=== PATIENT | female | born 1940 | race Caucasian/White ===

== ENCOUNTER 2017-10-18 10:03 | Inpatient (IN) ==
[~2017-10-18 10:03] MED LIST: *HR* Etomidate 20 MG/10 ML AMPUL IVP ONE; *HR* Rocuronium Bromide 100 MG/10 ML VIAL IVC ONE
[2017-10-18] MEDS ORDERED: *HR* LORazepam 2 MG/ML VIAL IM ONE (10:11)
[2017-10-18] MEDS ORDERED: 0.9 % Sodium Chloride 1,000 ML IVC ONE ×2 (10:11→20:22)
--- NOTE | 2017-10-18 10:18 | Emergency Department Note ---
Disposition Clinical Impression: Encephalopathy, Hypertension Disposition: Home, Self-Care Condition: Critical Neuro HPI - General Stated Complaint: lethargic Time Seen by Provider: 10/18/17 10:11 Nursing Notes Reviewed: Yes Vital Signs Reviewed: Yes - History of Present Illness HPI Narrative: Mrs. Garvey, a 77yo female, presents from home via EMS for neuro deficits. Onset this morning at 08:30. Described as non-verbal, purposeless movements. Began with her standing, fiddling with a candy dish and progressed to her current non-verbal state, not following commands, purposeless movements in all extremities. Per , she was normal this morning upon awakening. No preceeding fever, cough, dysuria. No hx ACS, CVA, TIA. No trauma. Antiplatelet: aspirin 81mg qdaily. Anticoagulant: none PMH: HTN, hypothyroid, HLD. Antihypertensive: Klonopin. Patient did not take her medications morning. ROS not obtainable. - Related Data Home Medications: Home Medications Medication Instructions Recorded Confirmed Baclofen [Lioresal] 10 mg PO TID 10/18/17 10/18/17 Estrogens, Conjugated [Premarin 1 appl VG MO 10/18/17 10/18/17 Cream] Ibuprofen 800 mg PO BID PRN 10/18/17 10/18/17 Levothyroxine Sodium [Levoxyl] 75 mcg PO DAILY 10/18/17 10/18/17 Mirtazapine [Remeron] 15 mg PO HS 10/18/17 10/18/17 Olopatadine HCl [Pataday] 1 drop BOTH EYES BID 10/18/17 10/18/17 Omeprazole [PriLOSEC] 40 mg PO DAILY 10/18/17 10/18/17 PARoxetine HCl [Paroxetine HCl] 10 mg PO DAILY 10/18/17 10/18/17 Pravastatin Sodium [Pravachol] 20 mg PO QPM 10/18/17 10/18/17 Trazodone HCl 100 mg PO HS 10/18/17 10/18/17 cloNIDine HCl [CloNIDine HCl] 0.1 mg PO DAILY 10/18/17 10/18/17 Allergies/Adverse Reactions: Allergies Allergy/AdvReac Type Severity Reaction Status Date / Time No Known Allergies Allergy Verified 09/13/16 06:19 All systems ED: reviewed and negative except as stated. Review of Systems: As Per HPI Limitations: ROS unobtainable due to patients medical condition Past Medical History - Past Medical History Medical history: Reports: hyperlipidemia, hypertension, thyroid disease Surgical history: Reports: cholecystectomy, hysterectomy Psychiatric history: Reports: no psych history [employer] HAND history: Reports: non-contributory - Social History Smoking Status: Never smoker Smokeless Tobacco Status: No Alcohol use: Reports: none Drug use: Reports: none Physical Exam Vital Signs Reviewed General: Patient has spontaneous eye opening and is watching staff is reattempt IV placement. She otherwise has purposeless movements, does not follow commands. Head: atraumatic, normocephalic Eye: normal appearance, PERRL, no scleral icterus, no conjunctival injection ENT: mucous membranes moist, normal external ear exam Neck: normal inspection, trachea midline Chest: normal inspection, symmetric chest rise Respiratory: Good respiratory effort. Bilateral breath sounds are clear without wheezing, crackles, or rhonchi. Cardiovascular: Regular rate and rhythm. No clicks, rubs, gallops, or murmors. Normal heart sounds. Lateral posterior tibial and radial pulses 2/44. Abdomen: Bowel sounds present normoactive. Abdomen is soft, nondistended. No organomegaly noted. Musculoskeletal: Spontaneously moving all extremities. No evidence of trauma; no extremity deformities, no cutaneous abrasions/erythema/ecchymosis. Skin: warm, dry, intact. No jaundice. Neuro: Patient has spontaneous eye opening. Unable to assess cranial nerve function. No focal neurologic deficits-purposelessly moving all extremities, no facial droop. Not following commands. Nonverbal. Course Course Narrative: Patient is awake, spontaneously opens her eyes, protecting her airway. No external evidence of trauma. Pupils are equally round and reactive to light. Concern for cerebral hemorrhage versus encephalopathy. Patient's movements are not allowing staff placement of IV. IM Ativan did not calm her. Will attempt IM Haldol. If this is as discussed will, discussed with the intubation to allow us to properly manage her presentation; will allow appropriate IV placement, lab draw, CT head, potential lumbar puncture. We will prepare to cover with meningitic antibiotics and antiviral. EKG data 10/18/17 at 11:26 interpreted as sinus rhythm with rate of 92. First- degree AV block with ME 243 ms. Otherwise normal intervals. Normal axis. Nonspecific ST-T changes. Compared to previous EKG dated 09/12/2016 show no acute ischemic changes comparison; first degree AV block present on comparison EKG. Patient did not respond to Ativan or Haldol IM. Given the concern over her abrupt change in mentation as well as our inability to obtain intravascular access port to calm her for imaging study, patient was emergently intubated by Dr. Gadiel Baker. CT head on my evaluation did not show a cerebral hemorrhage. No acute changes per radiology read. MRI pending. Chest x-ray shows possible left basilar pneumonia. Per , patient had no preceding symptoms of respiratory illness. Laboratory workup is unremarkable. No leukocytosis or leukocytopenia. Normal lateralizing renal function. Urinalysis is not concerning for UTI. CSF studies pending. Cerebral hemorrhage rule out RCT. Sural ischemia, though possible, is unlikely given the patient's initial presentation of purposeless movement that was equal bilaterally with no facial droop; no focal deficit. Concern for encephalopathy. Infectious encephalopathy is possible though less likely the patient's lack of elevated white blood count. CSF studies pending. We will continue empiric antibiotics pending micro-biology results. Patient's intake blood pressure was extremely hypertensive. Strong clinical suspicion for hypertensive encephalopathy. Blood pressure has improved after intubation in sedation/analgesia with propofol and fentanyl. I discussed the patient with the automobile spring repairer, Dr. Gandara, results of the patient to the ICU. Will attempt to minimize her propofol, monitoring her pressure. Will place restraints if needed and begin antihypertensive drip if needed. Patient's and family have not updated continuously by myself as well as Dr. Robertson. At this time, they have no additional questions. Vital Signs Temperature 97.6 F 10/18/17 10:11 Pulse Rate 122 10/18/17 10:11 Respiratory Rate 20 10/18/17 10:11 Blood Pressure 135/54 10/18/17 10:11 O2 Sat by Pulse Oximetry 97 10/18/17 10:11 Temperature 97.6 F 10/18/17 10:11 Pulse Rate 90 10/18/17 13:10 Respiratory Rate 12 10/18/17 13:10 Blood Pressure 208/78 10/18/17 13:10 O2 Sat by Pulse Oximetry 99 10/18/17 13:10 Oxygen Delivery Oxygen Delivery Ventilator Procedures - IO Left Tibia Time Out Performed: No (Emergent. Implied consent.) Local Anesthetic: lidocaine 1% Amount of anesthesic used (mL): 1 IO Instrument Used to Penetrate the Cortex: standard IO needle Patient Tolerated Procedure: well, no complications Complications: none - Lumbar Puncture Consent Obtained: verbal consent Time Out Performed: No (Emergent. Verbal consent from .) Patient Position: right lateral decubitus Skin Prep: Povidone-Iodine 1% Local Anesthetic: lidocaine 1% Amount of anesthesia used (mL): 4 Spinal Needle Gauge: 22G Interspace Used: L3-L4 Fluid Initially Obtained: clear Additional Comments: CSF slow to present to needle hub; CSF pressure not obtained. Complications: none Neuro Symptoms/Deficit - Lab Data Result diagrams: 10/18/17 11:34 10/18/17 11:34 Lab Results 10/18/17 10/18/17 10/18/17 Range/Units 10:06 11:34 11:34 WBC 6.6 (4.3-11.1) K/mcL RBC 4.37 (3.82-4.97) M/mcL Hgb 12.6 (11.5-15.4) g/dL Hct 39.3 (35.3-44.9) % MCV 89.9 (83.0-100.0) fL MCH 28.8 (28.0-33.3) pg MCHC 32.1 (31.6-35.5) g/dL RDW 13.6 (11.5-14.5) % Plt Count 305 (140-400) K/mcL MPV 9.9 (9.4-12.4) fL Immature Gran % 0.2 (0-4) % Seg Neutrophils % 83.2 % Lymphocytes % 12.1 % Monocytes % 3.0 % Eosinophils % 0.9 % Basophils % 0.6 % Neutrophils # 5.5 (1.6-8.9) K/mcL Lymphocytes # 0.8 (0.6-4.6) K/mcL Monocytes # 0.2 (0.0-1.3) K/mcL Eosinophils # 0.1 (0.0-0.6) K/mcL Basophils # 0.0 (0.0-0.2) K/mcL PT 11.4 (9.4-12.1) Seconds INR 1.1 APTT 26.0 (26.0-36.0) Seconds Carboxyhemoglobin (0-5) % Sodium (136-145) mEq/L Potassium (3.5-5.1) mEq/L Chloride (98-107) mEq/L Carbon Dioxide (23-29) mEq/L BUN (8-23) mg/dL Creatinine (0.60-1.20) mg/dL Est GFR ( Amer) (> 60) Est GFR (Non-Af Amer) (> 60) BUN/Creatinine Ratio (6-26) Glucose (70-105) mg/dL POC Glucose 109 H (70-99) mg/dL Calculated Osmolality (280-300) Lactic Acid (0.5-2.2) mmol/L Calcium (8.6-10.3) mg/dL Phosphorus (2.7-4.5) mg/dL Magnesium (1.6-2.6) mg/dL Total Bilirubin (0.3-1.0) mg/dL Direct Bilirubin (0.0-0.2) mg/dL Indirect Bilirubin (0.0-1.2) mg/dL AST (13-39) Units/L ALT (7-52) Units/L Alkaline Phosphatase (34-104) Units/L Ammonia (16-53) mcmol/L Creatine Kinase (30-223) Units/L Troponin I (< 0.04) ng/mL Serum Total Protein (6.4-8.9) g/dL Albumin (3.5-5.7) g/dL Globulin (2.4-3.5) g/dL Albumin/Globulin Ratio (1.1-2.2) TSH (0.340-5.600) mcIU/mL Urine Color (Yellow) Urine Clarity (Clear) Urine pH (5.0-8.0) pH Units Ur Specific [place] (1.010-1.025) Urine Protein (Neg-Trace) mg/dL Urine Glucose (UA) (Normal) mg/dL Urine Ketones (Negative) mg/dL Urine Blood (Negative) Urine Nitrite (Negative) Urine Bilirubin (Negative) Urine Urobilinogen (Normal) mg/dL Ur Leukocyte Esterase (Negative) Urine Microscopic RBC (0-3) per hpf Urine Microscopic WBC (0-3) per hpf Ur Squamous Epith Cells (None-Few) per lpf Urine Bacteria (None-Few) per hpf Hyaline Casts (None-Few) per lpf Ur Culture Indicated? (NO) CSF Volume mL CSF Appearance (Clear) CSF Color (Colorless) CSF RBC (0.000 - 0.002) M/mcL CSF Tot Nucleated Cells (0-5) TNC/mcL CSF Xanth Comm (Not Observe) Urine Opiates Screen (Ljcpkm=799) ng/mL Ur Barbiturates Screen (Hpsgwf=109) ng/mL Ur Phencyclidine Scrn (Cutoff=25) ng/mL Ur Amphetamines Screen (Tobtdq=0978) ng/mL U Benzodiazepines Scrn (Cmuxoz=453) ng/mL Urine Cocaine Screen (Cutoff= 300) ng/mL U Marijuana (THC) Screen (Cutoff = 50) ng/mL Ethyl Alcohol (Less than 10) mg/dL 10/18/17 10/18/17 10/18/17 Range/Units 11:34 11:34 11:34 WBC (4.3-11.1) K/mcL RBC (3.82-4.97) M/mcL Hgb (11.5-15.4) g/dL Hct (35.3-44.9) % MCV (83.0-100.0) fL MCH (28.0-33.3) pg MCHC (31.6-35.5) g/dL RDW (11.5-14.5) % Plt Count (140-400) K/mcL MPV (9.4-12.4) fL Immature Gran % (0-4) % Seg Neutrophils % % Lymphocytes % % Monocytes % % Eosinophils % % Basophils % % Neutrophils # (1.6-8.9) K/mcL Lymphocytes # (0.6-4.6) K/mcL Monocytes # (0.0-1.3) K/mcL Eosinophils # (0.0-0.6) K/mcL Basophils # (0.0-0.2) K/mcL PT (9.4-12.1) Seconds INR APTT (26.0-36.0) Seconds Carboxyhemoglobin 5.2 H (0-5) % Sodium 139 (136-145) mEq/L Potassium 3.0 L (3.5-5.1) mEq/L Chloride 104 (98-107) mEq/L Carbon Dioxide 23 (23-29) mEq/L BUN 14 (8-23) mg/dL Creatinine 0.82 (0.60-1.20) mg/dL Est GFR ( Amer) > 60 (> 60) Est GFR (Non-Af Amer) > 60 (> 60) BUN/Creatinine Ratio 17 (6-26) Glucose 123 H (70-105) mg/dL POC Glucose (70-99) mg/dL Calculated Osmolality 290 (280-300) Lactic Acid (0.5-2.2) mmol/L Calcium 8.6 (8.6-10.3) mg/dL Phosphorus (2.7-4.5) mg/dL Magnesium (1.6-2.6) mg/dL Total Bilirubin 0.3 (0.3-1.0) mg/dL Direct Bilirubin 0.1 (0.0-0.2) mg/dL Indirect Bilirubin 0.2 (0.0-1.2) mg/dL AST 24 (13-39) Units/L ALT 16 (7-52) Units/L Alkaline Phosphatase 55 (34-104) Units/L Ammonia 42 (16-53) mcmol/L Creatine Kinase 182 (30-223) Units/L Troponin I < 0.03 (< 0.04) ng/mL Serum Total Protein 6.5 (6.4-8.9) g/dL Albumin 4.3 (3.5-5.7) g/dL Globulin 2.2 L (2.4-3.5) g/dL Albumin/Globulin Ratio 2.0 (1.1-2.2) TSH (0.340-5.600) mcIU/mL Urine Color (Yellow) Urine Clarity (Clear) Urine pH (5.0-8.0) pH Units Ur Specific [place] (1.010-1.025) Urine Protein (Neg-Trace) mg/dL Urine Glucose (UA) (Normal) mg/dL Urine Ketones (Negative) mg/dL Urine Blood (Negative) Urine Nitrite (Negative) Urine Bilirubin (Negative) Urine Urobilinogen (Normal) mg/dL Ur Leukocyte Esterase (Negative) Urine Microscopic RBC (0-3) per hpf Urine Microscopic WBC (0-3) per hpf Ur Squamous Epith Cells (None-Few) per lpf Urine Bacteria (None-Few) per hpf Hyaline Casts (None-Few) per lpf Ur Culture Indicated? (NO) CSF Volume mL CSF Appearance (Clear) CSF Color (Colorless) CSF RBC (0.000 - 0.002) M/mcL CSF Tot Nucleated Cells (0-5) TNC/mcL CSF Xanth Comm (Not Observe) Urine Opiates Screen (Avjzdp=051) ng/mL Ur Barbiturates Screen (Rbhxed=412) ng/mL Ur Phencyclidine Scrn (Cutoff=25) ng/mL Ur Amphetamines Screen (Bsmxkk=2204) ng/mL U Benzodiazepines Scrn (Cztsjf=215) ng/mL Urine Cocaine Screen (Cutoff= 300) ng/mL U Marijuana (THC) Screen (Cutoff = 50) ng/mL Ethyl Alcohol < 10 (Less than 10) mg/dL 10/18/17 10/18/17 10/18/17 Range/Units 11:34 11:34 11:34 WBC (4.3-11.1) K/mcL RBC (3.82-4.97) M/mcL Hgb (11.5-15.4) g/dL Hct (35.3-44.9) % MCV (83.0-100.0) fL MCH (28.0-33.3) pg MCHC (31.6-35.5) g/dL RDW (11.5-14.5) % Plt Count (140-400) K/mcL MPV (9.4-12.4) fL Immature Gran % (0-4) % Seg Neutrophils % % Lymphocytes % % Monocytes % % Eosinophils % % Basophils % % Neutrophils # (1.6-8.9) K/mcL Lymphocytes # (0.6-4.6) K/mcL Monocytes # (0.0-1.3) K/mcL Eosinophils # (0.0-0.6) K/mcL Basophils # (0.0-0.2) K/mcL PT (9.4-12.1) Seconds INR APTT (26.0-36.0) Seconds Carboxyhemoglobin (0-5) % Sodium (136-145) mEq/L Potassium (3.5-5.1) mEq/L Chloride (98-107) mEq/L Carbon Dioxide (23-29) mEq/L BUN (8-23) mg/dL Creatinine (0.60-1.20) mg/dL Est GFR ( Amer) (> 60) Est GFR (Non-Af Amer) (> 60) BUN/Creatinine Ratio (6-26) Glucose (70-105) mg/dL POC Glucose (70-99) mg/dL Calculated Osmolality (280-300) Lactic Acid 1.6 (0.5-2.2) mmol/L Calcium (8.6-10.3) mg/dL Phosphorus 3.1 (2.7-4.5) mg/dL Magnesium 1.8 (1.6-2.6) mg/dL Total Bilirubin (0.3-1.0) mg/dL Direct Bilirubin (0.0-0.2) mg/dL Indirect Bilirubin (0.0-1.2) mg/dL AST (13-39) Units/L ALT (7-52) Units/L Alkaline Phosphatase (34-104) Units/L Ammonia (16-53) mcmol/L Creatine Kinase (30-223) Units/L Troponin I (< 0.04) ng/mL Serum Total Protein (6.4-8.9) g/dL Albumin (3.5-5.7) g/dL Globulin (2.4-3.5) g/dL Albumin/Globulin Ratio (1.1-2.2) TSH 2.393 (0.340-5.600) mcIU/mL Urine Color (Yellow) Urine Clarity (Clear) Urine pH (5.0-8.0) pH Units Ur Specific [place] (1.010-1.025) Urine Protein (Neg-Trace) mg/dL Urine Glucose (UA) (Normal) mg/dL Urine Ketones (Negative) mg/dL Urine Blood (Negative) Urine Nitrite (Negative) Urine Bilirubin (Negative) Urine Urobilinogen (Normal) mg/dL Ur Leukocyte Esterase (Negative) Urine Microscopic RBC (0-3) per hpf Urine Microscopic WBC (0-3) per hpf Ur Squamous Epith Cells (None-Few) per lpf Urine Bacteria (None-Few) per hpf Hyaline Casts (None-Few) per lpf Ur Culture Indicated? (NO) CSF Volume mL CSF Appearance (Clear) CSF Color (Colorless) CSF RBC (0.000 - 0.002) M/mcL CSF Tot Nucleated Cells (0-5) TNC/mcL CSF Xanth Comm (Not Observe) Urine Opiates Screen (Rlcrfu=366) ng/mL Ur Barbiturates Screen (Pncksy=609) ng/mL Ur Phencyclidine Scrn (Cutoff=25) ng/mL Ur Amphetamines Screen (Sjcvzf=4003) ng/mL U Benzodiazepines Scrn (Nimunh=995) ng/mL Urine Cocaine Screen (Cutoff= 300) ng/mL U Marijuana (THC) Screen (Cutoff = 50) ng/mL Ethyl Alcohol (Less than 10) mg/dL 10/18/17 10/18/17 10/18/17 Range/Units 11:43 11:43 13:00 WBC (4.3-11.1) K/mcL RBC (3.82-4.97) M/mcL Hgb (11.5-15.4) g/dL Hct (35.3-44.9) % MCV (83.0-100.0) fL MCH (28.0-33.3) pg MCHC (31.6-35.5) g/dL RDW (11.5-14.5) % Plt Count (140-400) K/mcL MPV (9.4-12.4) fL Immature Gran % (0-4) % Seg Neutrophils % % Lymphocytes % % Monocytes % % Eosinophils % % Basophils % % Neutrophils # (1.6-8.9) K/mcL Lymphocytes # (0.6-4.6) K/mcL Monocytes # (0.0-1.3) K/mcL Eosinophils # (0.0-0.6) K/mcL Basophils # (0.0-0.2) K/mcL PT (9.4-12.1) Seconds INR APTT (26.0-36.0) Seconds Carboxyhemoglobin (0-5) % Sodium (136-145) mEq/L Potassium (3.5-5.1) mEq/L Chloride (98-107) mEq/L Carbon Dioxide (23-29) mEq/L BUN (8-23) mg/dL Creatinine (0.60-1.20) mg/dL Est GFR ( Amer) (> 60) Est GFR (Non-Af Amer) (> 60) BUN/Creatinine Ratio (6-26) Glucose (70-105) mg/dL POC Glucose (70-99) mg/dL Calculated Osmolality (280-300) Lactic Acid (0.5-2.2) mmol/L Calcium (8.6-10.3) mg/dL Phosphorus (2.7-4.5) mg/dL Magnesium (1.6-2.6) mg/dL Total Bilirubin (0.3-1.0) mg/dL Direct Bilirubin (0.0-0.2) mg/dL Indirect Bilirubin (0.0-1.2) mg/dL AST (13-39) Units/L ALT (7-52) Units/L Alkaline Phosphatase (34-104) Units/L Ammonia (16-53) mcmol/L Creatine Kinase (30-223) Units/L Troponin I (< 0.04) ng/mL Serum Total Protein (6.4-8.9) g/dL Albumin (3.5-5.7) g/dL Globulin (2.4-3.5) g/dL Albumin/Globulin Ratio (1.1-2.2) TSH (0.340-5.600) mcIU/mL Urine Color Yellow (Yellow) Urine Clarity Clear (Clear) Urine pH 7.5 (5.0-8.0) pH Units Ur Specific [place] 1.012 (1.010-1.025) Urine Protein Negative (Neg-Trace) mg/dL Urine Glucose (UA) Normal (Normal) mg/dL Urine Ketones Negative (Negative) mg/dL Urine Blood Small H (Negative) Urine Nitrite Negative (Negative) Urine Bilirubin Negative (Negative) Urine Urobilinogen Normal (Normal) mg/dL Ur Leukocyte Esterase Negative (Negative) Urine Microscopic RBC 3-5 H (0-3) per hpf Urine Microscopic WBC 0-3 (0-3) per hpf Ur Squamous Epith Cells Moderate H (None-Few) per lpf Urine Bacteria None Seen (None-Few) per hpf Hyaline Casts None Seen (None-Few) per lpf Ur Culture Indicated? NO (NO) CSF Volume 4.0 mL CSF Appearance Clear (Clear) CSF Color Colorless (Colorless) CSF RBC < 0.002 (0.000 - 0.002) M/mcL CSF Tot Nucleated Cells < 3 (0-5) TNC/mcL CSF Xanth Comm Not Observed (Not Observe) Urine Opiates Screen Negative (Ufccgr=704) ng/mL Ur Barbiturates Screen Negative (Ikztxa=365) ng/mL Ur Phencyclidine Scrn Negative (Cutoff=25) ng/mL Ur Amphetamines Screen Negative (Uvngay=8891) ng/mL U Benzodiazepines Scrn Negative (Qfbjqd=714) ng/mL Urine Cocaine Screen Negative (Cutoff= 300) ng/mL U Marijuana (THC) Screen Negative (Cutoff = 50) ng/mL Ethyl Alcohol (Less than 10) mg/dL TPA Checklist - LKW: 3-4.5 hrs Add. Warnings/Precautions Patient/family understanding: The patient/family members have been counseled and understood the risk, benefit , and alternatives of treatment. Attestation Statement - Attestation Attestation: I, Kaiden Robertson DO, examined this patient [id number] and my medical decision-making was reviewed with Bruce Sim, Resident Physician. I agree with the documented findings, disposition and treatment plan as described except to the extent set forth below. Please see my progress notes for details.
[2017-10-18] MEDS ORDERED: Haloperidol Lactate 5 MG/ML VIAL IM ONE (10:19)
[2017-10-18] MEDS ORDERED: Lidocaine -MPF 2% 5 ML VIAL ONE (11:00)
[2017-10-18] MEDS ORDERED: cefTRIAXone 2,000 MG in Water for inj. (sterile) 20 ML 20 ML IVP ONE (11:19)
[2017-10-18] MEDS ORDERED: Acyclovir 600 MG in D5% in Water 100 ML IVPB ONE (11:21)
[2017-10-18] MEDS ORDERED: Propofol 500 MG/50 ML INFUS..BTL IVC SCH (11:30)
[2017-10-18] MEDS ORDERED: *HR* Etomidate 20 MG/10 ML AMPUL IVP ONE (11:32)
[2017-10-18] MEDS ORDERED: *HR* Rocuronium Bromide 50 MG/5 ML VIAL IVP ONE (11:33)
[2017-10-18] MEDS ORDERED: Acyclovir 550 MG in D5% in Water 100 ML IVPB ONE (11:45)
[2017-10-18] MEDS: FentaNYL (PF) 1,000 MCG in 0.9 % Sodium Chloride 80 ML IVC SCH (11:48)
[2017-10-18 11:49] LABS: Basophils % 0.6 %; Eosinophils # 0.1 K/mcL (0.0-0.6); Eosinophils % 0.9 %; Hematocrit 39.3 % (35.3-44.9); Hemoglobin 12.6 g/dL (11.5-15.4); Immature Granulocytes % 0.2 % (0-4); Lymphocytes # 0.8 K/mcL (0.6-4.6); Lymphocytes % 12.1 %; Mean Corpuscular HGB Conc 32.1 g/dL (31.6-35.5); Mean Corpuscular Hemoglobin 28.8 pg (28.0-33.3); Mean Corpuscular Volume 89.9 fL (83.0-100.0); Mean Platelet Volume 9.9 fL (9.4-12.4); Monocytes # 0.2 K/mcL (0.0-1.3); Neutrophils # 5.5 K/mcL (1.6-8.9); Platelet Count 305 K/mcL (140-400); Red Blood Count 4.37 M/mcL (3.82-4.97); Red Cell Distribution Width 13.6 % (11.5-14.5); Segmented Neutrophils % 83.2 %
[2017-10-18 11:55] LABS: Bilirubin,Urine Negative (Negative); Blood,Urine Small (Negative); Clarity,Urine Clear (Clear); Color,Urine Yellow (Yellow); Glucose,Urine (UA) Normal (Normal); Ketones,Urine Negative (Negative); Leukocyte Esterase,Urine Negative (Negative); Nitrite,Urine Negative (Negative); PH,Urine 7.5 pH Units (5.0-8.0); Protein,Urine Negative (Neg-Trace); Specific Gravity,Urine 1.012 (1.010-1.025); Urobilinogen,Urine Normal (Normal)
[2017-10-18 11:55] LABS: INR 1.1; Prothrombin Time 11.4 Seconds (9.4-12.1)
[2017-10-18 11:56] LABS: Bacteria,Urine None Seen per hpf (None-Few); Hyaline Casts,Urine None Seen per lpf (None-Few); Squamous Epithelial Cell,Urine Moderate per lpf (None-Few); WBC,Urine 0-3 per hpf (0-3)
[2017-10-18 12:10] LABS: Magnesium 1.8 mg/dL (1.6-2.6); Phosphorous 3.1 mg/dL (2.7-4.5)
[2017-10-18] MEDS ORDERED: Lidocaine -MPF 2% 5 ML VIAL INFILT ONE (12:11)
[2017-10-18 12:13] LABS: Troponin I < 0.03 ng/mL (< 0.04)
--- NOTE | 2017-10-18 12:24 | Emergency Department Note ---
Disposition Clinical Impression: Encephalopathy, Hypertension Disposition: Admitted As Inpatient Condition: Fair Referrals: Bladimir Dunne MD [Partnered Physician] - Time of Disposition: 13:57 General Adult HPI - General Chief complaint: ED Weakness Stated complaint: lethargic Time Seen by Provider: 10/18/17 10:11 Source: family, EMS Limitations: no limitations - History of Present Illness Pain Scale: 0 - Related Data Home Medications Medication Instructions Recorded Confirmed Baclofen [Lioresal] 10 mg PO TID 10/18/17 10/18/17 Estrogens, Conjugated [Premarin 1 appl VG MO 10/18/17 10/18/17 Cream] Ibuprofen 800 mg PO BID PRN 10/18/17 10/18/17 Levothyroxine Sodium [Levoxyl] 75 mcg PO DAILY 10/18/17 10/18/17 Mirtazapine [Remeron] 15 mg PO HS 10/18/17 10/18/17 Olopatadine HCl [Pataday] 1 drop BOTH EYES BID 10/18/17 10/18/17 Omeprazole [PriLOSEC] 40 mg PO DAILY 10/18/17 10/18/17 PARoxetine HCl [Paroxetine HCl] 10 mg PO DAILY 10/18/17 10/18/17 Pravastatin Sodium [Pravachol] 20 mg PO QPM 10/18/17 10/18/17 Trazodone HCl 100 mg PO HS 10/18/17 10/18/17 cloNIDine HCl [CloNIDine HCl] 0.1 mg PO DAILY 10/18/17 10/18/17 Allergies Allergy/AdvReac Type Severity Reaction Status Date / Time No Known Allergies Allergy Verified 09/13/16 06:19 Past Medical History - Past Medical History Medical history: Reports: hyperlipidemia, hypertension, thyroid disease Surgical history: Reports: cholecystectomy, hysterectomy Psychiatric history: Reports: no psych history 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 - Social History Smoking Status: Never smoker Smokeless Tobacco Status: No Alcohol use: Reports: none Drug use: Reports: none Physical Exam - General Limitations: no limitations General appearance: lethargic, in distress Course Vital Signs Temperature 97.6 F 10/18/17 10:11 Pulse Rate 122 10/18/17 10:11 Respiratory Rate 20 10/18/17 10:11 Blood Pressure 135/54 10/18/17 10:11 O2 Sat by Pulse Oximetry 97 10/18/17 10:11 Temperature 97.6 F 10/18/17 10:11 Pulse Rate 90 10/18/17 13:10 Respiratory Rate 12 10/18/17 13:10 Blood Pressure 208/78 10/18/17 13:10 O2 Sat by Pulse Oximetry 99 10/18/17 13:10 Oxygen Delivery Oxygen Delivery Ventilator Medical Decision Making - Lab Data Result diagrams: 10/18/17 11:34 10/18/17 11:34 Lab Results 10/18/17 10/18/17 10/18/17 Range/Units 10:06 11:34 11:34 WBC 6.6 (4.3-11.1) K/mcL RBC 4.37 (3.82-4.97) M/mcL Hgb 12.6 (11.5-15.4) g/dL Hct 39.3 (35.3-44.9) % MCV 89.9 (83.0-100.0) fL MCH 28.8 (28.0-33.3) pg MCHC 32.1 (31.6-35.5) g/dL RDW 13.6 (11.5-14.5) % Plt Count 305 (140-400) K/mcL MPV 9.9 (9.4-12.4) fL Immature Gran % 0.2 (0-4) % Seg Neutrophils % 83.2 % Lymphocytes % 12.1 % Monocytes % 3.0 % Eosinophils % 0.9 % Basophils % 0.6 % Neutrophils # 5.5 (1.6-8.9) K/mcL Lymphocytes # 0.8 (0.6-4.6) K/mcL Monocytes # 0.2 (0.0-1.3) K/mcL Eosinophils # 0.1 (0.0-0.6) K/mcL Basophils # 0.0 (0.0-0.2) K/mcL PT 11.4 (9.4-12.1) Seconds INR 1.1 APTT 26.0 (26.0-36.0) Seconds Carboxyhemoglobin (0-5) % Sodium (136-145) mEq/L Potassium (3.5-5.1) mEq/L Chloride (98-107) mEq/L Carbon Dioxide (23-29) mEq/L BUN (8-23) mg/dL Creatinine (0.60-1.20) mg/dL Est GFR ( Amer) (> 60) Est GFR (Non-Af Amer) (> 60) BUN/Creatinine Ratio (6-26) Glucose (70-105) mg/dL POC Glucose 109 H (70-99) mg/dL Calculated Osmolality (280-300) Lactic Acid (0.5-2.2) mmol/L Calcium (8.6-10.3) mg/dL Phosphorus (2.7-4.5) mg/dL Magnesium (1.6-2.6) mg/dL Total Bilirubin (0.3-1.0) mg/dL Direct Bilirubin (0.0-0.2) mg/dL Indirect Bilirubin (0.0-1.2) mg/dL AST (13-39) Units/L ALT (7-52) Units/L Alkaline Phosphatase (34-104) Units/L Ammonia (16-53) mcmol/L Creatine Kinase (30-223) Units/L Troponin I (< 0.04) ng/mL Serum Total Protein (6.4-8.9) g/dL Albumin (3.5-5.7) g/dL Globulin (2.4-3.5) g/dL Albumin/Globulin Ratio (1.1-2.2) TSH (0.340-5.600) mcIU/mL Urine Color (Yellow) Urine Clarity (Clear) Urine pH (5.0-8.0) pH Units Ur Specific [place] (1.010-1.025) Urine Protein (Neg-Trace) mg/dL Urine Glucose (UA) (Normal) mg/dL Urine Ketones (Negative) mg/dL Urine Blood (Negative) Urine Nitrite (Negative) Urine Bilirubin (Negative) Urine Urobilinogen (Normal) mg/dL Ur Leukocyte Esterase (Negative) Urine Microscopic RBC (0-3) per hpf Urine Microscopic WBC (0-3) per hpf Ur Squamous Epith Cells (None-Few) per lpf Urine Bacteria (None-Few) per hpf Hyaline Casts (None-Few) per lpf Ur Culture Indicated? (NO) CSF Volume mL CSF Appearance (Clear) CSF Color (Colorless) CSF RBC (0.000 - 0.002) M/mcL CSF Tot Nucleated Cells (0-5) TNC/mcL CSF Seg Neutrophils CSF Band Neutrophils % CSF Lymphocytes % CSF Monocytes % CSF Eosinophils % CSF Basophils % CSF Other Cells % CSF Glucose (40-70) mg/dL CSF Xanth Comm (Not Observe) CSF Total Protein (15-45) mg/dL Urine Opiates Screen (Imzrtl=261) ng/mL Ur Barbiturates Screen (Cfeqxl=641) ng/mL Ur Phencyclidine Scrn (Cutoff=25) ng/mL Ur Amphetamines Screen (Sgklms=9016) ng/mL U Benzodiazepines Scrn (Lxhfcp=373) ng/mL Urine Cocaine Screen (Cutoff= 300) ng/mL U Marijuana (THC) Screen (Cutoff = 50) ng/mL Ethyl Alcohol (Less than 10) mg/dL 10/18/17 10/18/17 10/18/17 Range/Units 11:34 11:34 11:34 WBC (4.3-11.1) K/mcL RBC (3.82-4.97) M/mcL Hgb (11.5-15.4) g/dL Hct (35.3-44.9) % MCV (83.0-100.0) fL MCH (28.0-33.3) pg MCHC (31.6-35.5) g/dL RDW (11.5-14.5) % Plt Count (140-400) K/mcL MPV (9.4-12.4) fL Immature Gran % (0-4) % Seg Neutrophils % % Lymphocytes % % Monocytes % % Eosinophils % % Basophils % % Neutrophils # (1.6-8.9) K/mcL Lymphocytes # (0.6-4.6) K/mcL Monocytes # (0.0-1.3) K/mcL Eosinophils # (0.0-0.6) K/mcL Basophils # (0.0-0.2) K/mcL PT (9.4-12.1) Seconds INR APTT (26.0-36.0) Seconds Carboxyhemoglobin 5.2 H (0-5) % Sodium 139 (136-145) mEq/L Potassium 3.0 L (3.5-5.1) mEq/L Chloride 104 (98-107) mEq/L Carbon Dioxide 23 (23-29) mEq/L BUN 14 (8-23) mg/dL Creatinine 0.82 (0.60-1.20) mg/dL Est GFR ( Amer) > 60 (> 60) Est GFR (Non-Af Amer) > 60 (> 60) BUN/Creatinine Ratio 17 (6-26) Glucose 123 H (70-105) mg/dL POC Glucose (70-99) mg/dL Calculated Osmolality 290 (280-300) Lactic Acid (0.5-2.2) mmol/L Calcium 8.6 (8.6-10.3) mg/dL Phosphorus (2.7-4.5) mg/dL Magnesium (1.6-2.6) mg/dL Total Bilirubin 0.3 (0.3-1.0) mg/dL Direct Bilirubin 0.1 (0.0-0.2) mg/dL Indirect Bilirubin 0.2 (0.0-1.2) mg/dL AST 24 (13-39) Units/L ALT 16 (7-52) Units/L Alkaline Phosphatase 55 (34-104) Units/L Ammonia 42 (16-53) mcmol/L Creatine Kinase 182 (30-223) Units/L Troponin I < 0.03 (< 0.04) ng/mL Serum Total Protein 6.5 (6.4-8.9) g/dL Albumin 4.3 (3.5-5.7) g/dL Globulin 2.2 L (2.4-3.5) g/dL Albumin/Globulin Ratio 2.0 (1.1-2.2) TSH (0.340-5.600) mcIU/mL Urine Color (Yellow) Urine Clarity (Clear) Urine pH (5.0-8.0) pH Units Ur Specific [place] (1.010-1.025) Urine Protein (Neg-Trace) mg/dL Urine Glucose (UA) (Normal) mg/dL Urine Ketones (Negative) mg/dL Urine Blood (Negative) Urine Nitrite (Negative) Urine Bilirubin (Negative) Urine Urobilinogen (Normal) mg/dL Ur Leukocyte Esterase (Negative) Urine Microscopic RBC (0-3) per hpf Urine Microscopic WBC (0-3) per hpf Ur Squamous Epith Cells (None-Few) per lpf Urine Bacteria (None-Few) per hpf Hyaline Casts (None-Few) per lpf Ur Culture Indicated? (NO) CSF Volume mL CSF Appearance (Clear) CSF Color (Colorless) CSF RBC (0.000 - 0.002) M/mcL CSF Tot Nucleated Cells (0-5) TNC/mcL CSF Seg Neutrophils CSF Band Neutrophils % CSF Lymphocytes % CSF Monocytes % CSF Eosinophils % CSF Basophils % CSF Other Cells % CSF Glucose (40-70) mg/dL CSF Xanth Comm (Not Observe) CSF Total Protein (15-45) mg/dL Urine Opiates Screen (Frhvhv=443) ng/mL Ur Barbiturates Screen (Sxfcdc=627) ng/mL Ur Phencyclidine Scrn (Cutoff=25) ng/mL Ur Amphetamines Screen (Twumls=6481) ng/mL U Benzodiazepines Scrn (Jfpkba=769) ng/mL Urine Cocaine Screen (Cutoff= 300) ng/mL U Marijuana (THC) Screen (Cutoff = 50) ng/mL Ethyl Alcohol < 10 (Less than 10) mg/dL 10/18/17 10/18/17 10/18/17 Range/Units 11:34 11:34 11:34 WBC (4.3-11.1) K/mcL RBC (3.82-4.97) M/mcL Hgb (11.5-15.4) g/dL Hct (35.3-44.9) % MCV (83.0-100.0) fL MCH (28.0-33.3) pg MCHC (31.6-35.5) g/dL RDW (11.5-14.5) % Plt Count (140-400) K/mcL MPV (9.4-12.4) fL Immature Gran % (0-4) % Seg Neutrophils % % Lymphocytes % % Monocytes % % Eosinophils % % Basophils % % Neutrophils # (1.6-8.9) K/mcL Lymphocytes # (0.6-4.6) K/mcL Monocytes # (0.0-1.3) K/mcL Eosinophils # (0.0-0.6) K/mcL Basophils # (0.0-0.2) K/mcL PT (9.4-12.1) Seconds INR APTT (26.0-36.0) Seconds Carboxyhemoglobin (0-5) % Sodium (136-145) mEq/L Potassium (3.5-5.1) mEq/L Chloride (98-107) mEq/L Carbon Dioxide (23-29) mEq/L BUN (8-23) mg/dL Creatinine (0.60-1.20) mg/dL Est GFR ( Amer) (> 60) Est GFR (Non-Af Amer) (> 60) BUN/Creatinine Ratio (6-26) Glucose (70-105) mg/dL POC Glucose (70-99) mg/dL Calculated Osmolality (280-300) Lactic Acid 1.6 (0.5-2.2) mmol/L Calcium (8.6-10.3) mg/dL Phosphorus 3.1 (2.7-4.5) mg/dL Magnesium 1.8 (1.6-2.6) mg/dL Total Bilirubin (0.3-1.0) mg/dL Direct Bilirubin (0.0-0.2) mg/dL Indirect Bilirubin (0.0-1.2) mg/dL AST (13-39) Units/L ALT (7-52) Units/L Alkaline Phosphatase (34-104) Units/L Ammonia (16-53) mcmol/L Creatine Kinase (30-223) Units/L Troponin I (< 0.04) ng/mL Serum Total Protein (6.4-8.9) g/dL Albumin (3.5-5.7) g/dL Globulin (2.4-3.5) g/dL Albumin/Globulin Ratio (1.1-2.2) TSH 2.393 (0.340-5.600) mcIU/mL Urine Color (Yellow) Urine Clarity (Clear) Urine pH (5.0-8.0) pH Units Ur Specific [place] (1.010-1.025) Urine Protein (Neg-Trace) mg/dL Urine Glucose (UA) (Normal) mg/dL Urine Ketones (Negative) mg/dL Urine Blood (Negative) Urine Nitrite (Negative) Urine Bilirubin (Negative) Urine Urobilinogen (Normal) mg/dL Ur Leukocyte Esterase (Negative) Urine Microscopic RBC (0-3) per hpf Urine Microscopic WBC (0-3) per hpf Ur Squamous Epith Cells (None-Few) per lpf Urine Bacteria (None-Few) per hpf Hyaline Casts (None-Few) per lpf Ur Culture Indicated? (NO) CSF Volume mL CSF Appearance (Clear) CSF Color (Colorless) CSF RBC (0.000 - 0.002) M/mcL CSF Tot Nucleated Cells (0-5) TNC/mcL CSF Seg Neutrophils CSF Band Neutrophils % CSF Lymphocytes % CSF Monocytes % CSF Eosinophils % CSF Basophils % CSF Other Cells % CSF Glucose (40-70) mg/dL CSF Xanth Comm (Not Observe) CSF Total Protein (15-45) mg/dL Urine Opiates Screen (Wcinlo=813) ng/mL Ur Barbiturates Screen ([place]=143) ng/mL Ur Phencyclidine Scrn (Cutoff=25) ng/mL Ur Amphetamines Screen (Oxiccs=1588) ng/mL U Benzodiazepines Scrn (Ckmnuf=332) ng/mL Urine Cocaine Screen (Cutoff= 300) ng/mL U Marijuana (THC) Screen (Cutoff = 50) ng/mL Ethyl Alcohol (Less than 10) mg/dL 10/18/17 10/18/17 10/18/17 Range/Units 11:43 11:43 13:00 WBC (4.3-11.1) K/mcL RBC (3.82-4.97) M/mcL Hgb (11.5-15.4) g/dL Hct (35.3-44.9) % MCV (83.0-100.0) fL MCH (28.0-33.3) pg MCHC (31.6-35.5) g/dL RDW (11.5-14.5) % Plt Count (140-400) K/mcL MPV (9.4-12.4) fL Immature Gran % (0-4) % Seg Neutrophils % % Lymphocytes % % Monocytes % % Eosinophils % % Basophils % % Neutrophils # (1.6-8.9) K/mcL Lymphocytes # (0.6-4.6) K/mcL Monocytes # (0.0-1.3) K/mcL Eosinophils # (0.0-0.6) K/mcL Basophils # (0.0-0.2) K/mcL PT (9.4-12.1) Seconds INR APTT (26.0-36.0) Seconds Carboxyhemoglobin (0-5) % Sodium (136-145) mEq/L Potassium (3.5-5.1) mEq/L Chloride (98-107) mEq/L Carbon Dioxide (23-29) mEq/L BUN (8-23) mg/dL Creatinine (0.60-1.20) mg/dL Est GFR ( Amer) (> 60) Est GFR (Non-Af Amer) (> 60) BUN/Creatinine Ratio (6-26) Glucose (70-105) mg/dL POC Glucose (70-99) mg/dL Calculated Osmolality (280-300) Lactic Acid (0.5-2.2) mmol/L Calcium (8.6-10.3) mg/dL Phosphorus (2.7-4.5) mg/dL Magnesium (1.6-2.6) mg/dL Total Bilirubin (0.3-1.0) mg/dL Direct Bilirubin (0.0-0.2) mg/dL Indirect Bilirubin (0.0-1.2) mg/dL AST (13-39) Units/L ALT (7-52) Units/L Alkaline Phosphatase (34-104) Units/L Ammonia (16-53) mcmol/L Creatine Kinase (30-223) Units/L Troponin I (< 0.04) ng/mL Serum Total Protein (6.4-8.9) g/dL Albumin (3.5-5.7) g/dL Globulin (2.4-3.5) g/dL Albumin/Globulin Ratio (1.1-2.2) TSH (0.340-5.600) mcIU/mL Urine Color Yellow (Yellow) Urine Clarity Clear (Clear) Urine pH 7.5 (5.0-8.0) pH Units Ur Specific [place] 1.012 (1.010-1.025) Urine Protein Negative (Neg-Trace) mg/dL Urine Glucose (UA) Normal (Normal) mg/dL Urine Ketones Negative (Negative) mg/dL Urine Blood Small H (Negative) Urine Nitrite Negative (Negative) Urine Bilirubin Negative (Negative) Urine Urobilinogen Normal (Normal) mg/dL Ur Leukocyte Esterase Negative (Negative) Urine Microscopic RBC 3-5 H (0-3) per hpf Urine Microscopic WBC 0-3 (0-3) per hpf Ur Squamous Epith Cells Moderate H (None-Few) per lpf Urine Bacteria None Seen (None-Few) per hpf Hyaline Casts None Seen (None-Few) per lpf Ur Culture Indicated? NO (NO) CSF Volume 4.0 mL CSF Appearance Clear (Clear) CSF Color Colorless (Colorless) CSF RBC < 0.002 (0.000 - 0.002) M/mcL CSF Tot Nucleated Cells < 3 (0-5) TNC/mcL CSF Seg Neutrophils TNP CSF Band Neutrophils % Test Not Performed CSF Lymphocytes % Test Not Performed CSF Monocytes % Test Not Performed CSF Eosinophils % Test Not Performed CSF Basophils % Test Not Performed CSF Other Cells % Test Not Performed CSF Glucose 69 (40-70) mg/dL CSF Xanth Comm Not Observed (Not Observe) CSF Total Protein 44 (15-45) mg/dL Urine Opiates Screen Negative (Bvicdo=867) ng/mL Ur Barbiturates Screen Negative (Iugudn=874) ng/mL Ur Phencyclidine Scrn Negative (Cutoff=25) ng/mL Ur Amphetamines Screen Negative (Iuiuac=7035) ng/mL U Benzodiazepines Scrn Negative (Jefxrx=268) ng/mL Urine Cocaine Screen Negative (Cutoff= 300) ng/mL U Marijuana (THC) Screen Negative (Cutoff = 50) ng/mL Ethyl Alcohol (Less than 10) mg/dL Critical Care Time Critical Care Time: Yes Total Critical Care Time: 45 Attestation: The high probability of a clinically significant, sudden or life threatening deterioration of the patient's condition required my full and direct attention, intervention and personal management. Critical care performed: Time is exclusive of separately billable procedures. Time includes: direct patient care, patient reassessment, coordination of patient care, interpretation of data (laboratory data, radiology data, and respiratory data), review of patient's medical records, medical consultation and documentation of patient care. Procedures included in critical care time: Procedures excluded from critical care time: Attestation Statement - Attestation Attestation: I, Kaiden Robertson DO, examined this patient [id number] and my medical decision-making was reviewed withDr. Choco Suresh Resident Physician. I agree with the documented findings, disposition and treatment plan as described except to the extent set forth below. Please see my progress notes for details. 77-year-old female presented by EMS for evaluation of altered mentation and encephalopathic-like presentation. Patient was flailing her arms and legs without any purposeful movement. She is alert she is maintaining her airway she had normal vital signs during transport by EMS as well as on arrival here. Patient's neurologic evaluation shows an atraumatic appearing head. She had no signs of a prior defect or abnormality. Lungs are clear heart is regular blood pressure is normal and her pulse ox was normal. Repeat Accu-Chek was 107 on arrival. Patient continued to be combative. Family medical history that we have for the is that the patient has hypertension and some anxiety. Patient has been up since 3 AM this morning which is normal for the patient and her . He has no is within the entire time in approximately 2-1/2 hours prior to coming the emergency room the patient started acting confused and combative. She has never done anything like this before. Patient is concerning for intracranial pathology as well as possible encephalopathy unknown etiology this point. She supposedly takes clonidine for home for blood pressure. Vital signs been reviewed. Patient will have screening CT imaging of the head as well as full workup for infectious etiology include chest x-ray EKG urinalysis and lumbar puncture. 2 doses of medications including 2 mg of Ativan and Haldol were given and attempted calm the patient down she continued to be combative and flailing around. After lengthy discussion with the and multiple times to get peripheral IVs to provide sedation to the patient could have the imaging modality that was mandated was determined that prophylactic intubation will be completed to aid in the stabilization the patient management and evaluation. Verbal consent was obtained from the for the procedure this time. The intubation was completed by the resident physician Dr. Suresh and Dr. Baker without any complication using video laryngoscopy. One attempt was made with no issue. The ET tube was visualized going through the vocal cords. I strictly present throughout the entire procedure and intervention. Patient's CT imaging will be completed at this time. Sedation of propofol and fentanyl will be utilized this point. Disposition will be admission once we have a formal etiology for this patient's does not initiate this time. Concern is noted for unknown etiology to encephalopathic-like presentation. Workup is pending. 45 minutes of critical care will provide us patient history the course. See detailed documentation of physical exam, medical intervention, medical decision-making and disposition in the resident physician's note. 1230 CT imaging is negative for acute bleed. Lumbar punctures pending. IV antibiotics including vancomycin and Rocephin and acyclovir were started at this point. No acute intracranial pathology/bleed or mass were noted. Continued workup will be established. Admission process will be completed 1345 Labs are unremarkable pneumonia is normal. Liver function testing is stable. CT imaging of the head is unremarkable this time. Chest x-ray does not show any acute pathology. The ICU attending can down here to the emergency room and I will the patient the bedside recommended titrating down the propofol to keep the patient's blood pressure between 160 and 180 systolic. Restraints will be placed to wharf helper with the patient's flailing around. No other medications request of this time per patient is otherwise clinically stable with no acute signs of infection on the CSF. We will hold the antibiotics had not been given at this point. Patient will require further workup and management and treatment. Patient does have what appears to be hypertensive encephalopathy based on the working differential at this point. No other acute is noted at this point. Patient will be admitted to the ICU for titration of medications most likely extubation.
[2017-10-18 12:27] LABS: Alanine Aminotransferase 16 Units/L (7-52); Albumin 4.3 g/dL (3.5-5.7); Alkaline Phosphatase 55 Units/L (34-104); Aspartate Amino Transferase 24 Units/L (13-39); BUN/Creatinine Ratio 17 (6-26); Bilirubin,Direct 0.1 mg/dL (0.0-0.2); Bilirubin,Indirect 0.2 mg/dL (0.0-1.2); Bilirubin,Total 0.3 mg/dL (0.3-1.0); Blood Urea Nitrogen 14 mg/dL (8-23); Calcium 8.6 mg/dL (8.6-10.3); Carbon Dioxide 23 mEq/L (23-29); Chloride 104 mEq/L (98-107); Creatine Kinase 182 Units/L (30-223); Globulin 2.2 g/dL (2.4-3.5); Glucose 123 mg/dL (70-105); Osmolality,Calculated 290 (280-300); Sodium 139 mEq/L (136-145); Total Protein 6.5 g/dL (6.4-8.9); eGFR For African Americans > 60 (> 60); eGFR For Non-African Americans > 60 (> 60)
[2017-10-18 13:35] LABS: Appearance,CSF Clear (Clear)
[2017-10-18 13:37] LABS: Red Blood Cell,CSF < 0.002 M/mcL
[2017-10-18 13:37] LABS: Ethanol < 10 mg/dL (Less than 10)
[2017-10-18 13:38] LABS: Amphetamine Screen,Urine Negative ng/mL (Cutoff=1000); Barbiturate Screen,Urine Negative ng/mL (Cutoff=200); Benzodiazepines Screen,Urine Negative ng/mL (Cutoff=200); Cannabinoid Screen,Urine Negative ng/mL (Cutoff = 50); Cocaine Screen,Urine Negative ng/mL (Cutoff= 300); Opiate Screen,Urine Negative ng/mL (Cutoff=300); Phencyclidine Screen,Urine Negative ng/mL (Cutoff=25)
[2017-10-18 13:50] LABS: Glucose,CSF 69 mg/dL (40-70); Total Protein,CSF 44 mg/dL (15-45)
[2017-10-18] MEDS ORDERED: Naloxone 0.4 MG/ML INJ IVP PRN (13:50)
--- NOTE | 2017-10-18 13:50 | Pulmonology History & Physical ---
<Enmanuel Maria - Last Filed: 10/18/17 16:48> Date of Encounter: 10/18/17 Time of Encounter: 13:47 Assessment and Plan (1) Encephalopathy Current visit: Yes Status: Acute Encephalopathy of unknown origin, likely metabolic Most likely secondary to hypertensive emergency/PRES No obvious electrolyte disturbance or source of infection, UDS Negative Lumbar puncture was performed with CSF analysis that is grossly normal with cell differential pending Head CT is negative for acute process, MRI pending Patient is intubated and mildly sedated, We will stop propofol, start precedex and continue fentanyl Maintain SBP ~180 for permissive hypertension with slow decrease over 24 hour Likely extubate later in the evening or in the morning Neurology has been consulted, appreciate recommendations (2) Hypertensive emergency Current visit: Yes Status: Acute Hypertensive emergency, SBP >210 on arrival Patient has neurological symptoms including encephalopathy, likely secondary to HTN Patient takes clonidine 0.1 TID at home, and did not take medication today BP has been controlled with addition of sedation We will continue to allow for permissive hypertension (3) Endotracheally intubated Current visit: Yes Status: Acute Patient is intubated with light sedation due to combative behavior Likely to be extubated today or tomorrow (4) DVT prophylaxis Current visit: Yes Status: Acute Pending neurovascular findings, we will use [facility] History of Present Illness Chief complaint: Altered mental status HPI: Ms. Gavrey is a 77 year old female with a history of hypertension, hypothyroidism, hyperlipidemia who presented to the ED via EMS for neurological deficits and altered mental status. Apparently the patient was previously normal, and had no trouble mentating. At around 8:30 this morning she was with her family at a store, and she began to experience strange movements which did not seem to be purposeful. Additionally, she continued to be nonverbal and erratic up until the time of presentation at the emergency room as well as after. At the time of examination, the patient is not accompanied by any family member who can give more detailed history, and she is sedated and on a ventilator at this time. According to ED notes, the patient's did say that she was previously normal, and that she has had no evidence of infection in the days leading up to this event. In the ED, the patient received multiple medications to try to calm her erratic and violent behavior. She apparently received IM Ativan and Haldol which were insufficient, and necessitated the use of a IO access. The patient was found to have significant hypertension with SBP >210, and according to the patient's she apparently did not take her medications in the morning. The patient was intubated and sedated in order to allow for treatment. CT of the patient's head did not demonstrate any intravascular bleeding or acute changes; MRI is pending. CXR shows "Left basilar airspace disease which could represent pneumonia." Past Med Surg Social Fam HX - Past Medical History Medical history: hyperlipidemia, hypertension, thyroid disease Psychiatric history: no psych history - Past Surgical History Surgical History: cholecystectomy, hysterectomy - Social History Smoking Status: Never smoker Smokeless Tobacco Status: No Alcohol use: none Drug use: none Medications and Allergies Baclofen [Lioresal] 10 mg PO TID 10/18/17 [History] Estrogens, Conjugated [Premarin Cream] 1 appl VG MO 10/18/17 [History] Ibuprofen 800 mg PO BID PRN 10/18/17 [History] Levothyroxine Sodium [Levoxyl] 75 mcg PO DAILY 10/18/17 [History] Mirtazapine [Remeron] 15 mg PO HS 10/18/17 [History] Olopatadine HCl [Pataday] 1 drop BOTH EYES BID 10/18/17 [History] Omeprazole [PriLOSEC] 40 mg PO DAILY 10/18/17 [History] PARoxetine HCl [Paroxetine HCl] 10 mg PO DAILY 10/18/17 [History] Pravastatin Sodium [Pravachol] 20 mg PO QPM 10/18/17 [History] Trazodone HCl 100 mg PO HS 10/18/17 [History] cloNIDine HCl [CloNIDine HCl] 0.1 mg PO DAILY 10/18/17 [History] 3 Allergy/AdvReac Type Severity Reaction Status Date / Time No Known Allergies Allergy Verified 09/13/16 06:19 ROS unobtainable: due to endotracheal tube All Systems: The remainder of the systems were reviewed and are negative Physical Examination Gen: Vitals noted. No acute distress. Patient is sedated but responds to physical touch and loud noises HEENT: PERRL, oropharynx clear, Normocephalic, atraumatic Neck: Supple. No adenopathy. Cardiac: RRR, no murmur, +S1/S2 Pulmonary: CTA bilaterally, no wheezes, rales or rhonchi, equal chest expansion Abdomen: soft, nontender, BS noted, no guarding MSK: ROM intact, no joint swelling noted Extremities: no BLE edema, nontender calf, no cyanosis or clubbing Neuro: Patient is sedated with ET tube in place. Appears to move all extremities. DTRs appear intact 2/4 in biceps, brachioradialis, patellar, and achilles b/l Results - Laboratory Findings CBC and BMP: 10/18/17 11:34 10/18/17 11:34 PT/INR, D-dimer PT 11.4 Seconds (9.4-12.1) 10/18/17 11:34 Abnormal lab findings: Abnormal lab results Carboxyhemoglobin 5.2 % (0-5) H 10/18/17 11:34 Potassium 3.0 mEq/L (3.5-5.1) L 10/18/17 11:34 Glucose 123 mg/dL (70-105) H 10/18/17 11:34 POC Glucose 109 mg/dL (70-99) H 10/18/17 10:06 Globulin 2.2 g/dL (2.4-3.5) L 10/18/17 11:34 Urine Blood Small (Negative) H 10/18/17 11:43 Urine Microscopic RBC 3-5 per hpf (0-3) H 10/18/17 11:43 Ur Squamous Epith Cells Moderate per lpf (None-Few) H 10/18/17 11:43 <Jadon Hale W - Last Filed: 10/18/17 18:30> Date of Encounter: 10/18/17 History of Present Illness HPI: Ms. Garvey is a 77 year old female All Systems: The remainder of the systems were reviewed and are negative Physical Examination Vital Signs: Vital Signs, Last 4 Hours Pulse Resp BP Pulse Ox 10/18/17 15:50 13 208/105 93 10/18/17 14:22 100 10/18/17 14:05 89 16 190/100 100 10/18/17 14:03 86 18 118/83 100 Results - Laboratory Findings CBC and BMP: 10/18/17 11:34 10/18/17 11:34 PT/INR, D-dimer PT 11.4 Seconds (9.4-12.1) 10/18/17 11:34 Abnormal lab findings: Abnormal lab results Carboxyhemoglobin 5.2 % (0-5) H 10/18/17 11:34 Potassium 3.0 mEq/L (3.5-5.1) L 10/18/17 11:34 Glucose 123 mg/dL (70-105) H 10/18/17 11:34 POC Glucose 109 mg/dL (70-99) H 10/18/17 10:06 Globulin 2.2 g/dL (2.4-3.5) L 10/18/17 11:34 Urine Blood Small (Negative) H 10/18/17 11:43 Urine Microscopic RBC 3-5 per hpf (0-3) H 10/18/17 11:43 Ur Squamous Epith Cells Moderate per lpf (None-Few) H 10/18/17 11:43 - Attending Attestation I examined this patient and my medical decision-making was reviewed with the Resident Physician. I agree with the documented findings, disposition and treatment plan as described except to the extent set forth below. We independently had [id number] contact with the patient I spent 32min of Critical Care time with this patient. It involved decision making of high complexity to assess, manipulate, and support vital organ system failure and/or to prevent further life threatening deterioration of the patient' s condition. The time involved in the performance of separately reportable procedures was not counted toward critical care time. Patient seen and examined at bedside Labs, radiology, chart personally reviewed. DIRECTORY CARRIER: Acute encephalopathy likely secondary to hypertensive emergency neurology has been consulted head CT within normal limits MR pending. U tox negative Pulm: Intubated because of agitation although was not in respiratory failure at the time but was delirious enough that medical care could not be delivered consistently. She is sedated on the vent ABG pending Cards: Hypertensive emergency blood lower blood pressure by about 20% from presentation which was 220/110 really this is being managed with sedation which we have adjusted may need nicardipine infusion we have started a longer acting calcium channel vidal which should take effect for the next 24-48 hours and also patient is on clonidine which we have restarted to avoid rebound effect. She has a very slight troponin elevation without clear evidence of ACS we will continue to trend this echocardiogram pending FEN-GI: Nothing by mouth for now GI prophylaxis given Renal: Urine output monitored ID: There was concern initially for possible meningitis LP was performed and the results are not consistent with this okay to de-escalate antibiotics Heme/Onc: DVT prophylaxis given Endo: Glucose Monitored Integ/MSK: Skin Care per routine ICU Nursing Protocol to prevent ulcers. Lines: All lines examined without evidence of infection : Dispo: Remain in ICU CODE: Full
[2017-10-18] MEDS ORDERED: Lacri-Lube 3.5 GM TUBE BOTH EYES PRN (13:54)
[2017-10-18] MEDS ORDERED: Potassium Chloride 20 MEQ, Lidocaine 1% 2 ML in D5% in Water 250 ML IVPB ONE (14:02)
[2017-10-18] MEDS ORDERED: Potassium Chloride 40 MEQ, Lidocaine 1% 2 ML in D5% in Water 500 ML IVPB ONE (14:09)
--- NOTE | 2017-10-18 16:37 | Neurology - Consult Note ---
<Zhang Aleman - Last Filed: 10/18/17 16:57> Date of Encounter: 10/18/17 Time of Encounter: 16:24 Assessment and Plan (1) Encephalopathy Current Visit: Yes Status: Acute Unknown etiology. Patient is intubated and sedated. Unable to do neuro exam. Head CT negative. Laboratory, imaging and vital signs negative for sepsis. CSF analysis negative for infection. CSF culture negative. Urine toxicology negative. Patient is on mirtazipine, trazodone, paroxetien at home. Family unable to verify if she is compliant with her medications. Concern for withdrawal if patient will not be tolerating oral intake and if she may have taken extra medications she may have serotonin excess. Awaiting MRI. Plan for EEG (2) Hypertensive emergency Current Visit: Yes Status: Acute Patient presented with blood pressure of 135/54 Blood pressure increased to systolic 225/105 1 hour after presentation to emergency room. Blood pressure improved after being sedated and intubated. Goal of blood pressure is to reduce by 20% to prevent cerebral ischemia. At home patient is on clonidine for BP control (low dose of 0.1mg daily) has hx of PAD: LE arterial duplex on 09/23/16 was positive for 75% stenosis in the left superficial femoral artery. May need to be evaluated for renal artery contusion. (3) Endotracheally intubated Current Visit: Yes Status: Acute (4) History of hypothyroidism Current Visit: Yes Status: Chronic TSH WNL continue levothyroxine History of Present Illness Chief complaint: confusion HPI: Ms. Garvey is a 77 year old female presented with chief complaint of confusion. Consult was placed due to concern for PRESS by primary team. All history is obtained from family members. Patient woke up this morning without any difficulty was alert oriented 3. [place]. After the appointment was completed and both patient and were in the car he noticed she was confused with her head down and not talking much. After that took patient to [facility]. At that point patient seemed very confused and reported why are we here to her . That was the last time patient was verbal. Because of these symptoms take patient home. He was unable to get patient out of the car and she was nonambulatory. Dr. restrepo helped her take Patient from the car to the house and EMS was called. Patient has a history of hypertension, hyperlipidemia. Family denies patient having diaphoresis, flushing, diarrhea, sick contacts, recent travel, headache, slurred speech, facial drooping, seizure-like activity. Denies history of CVA, seizures, head trauma. Reports last PCP visit her blood pressure was controlled. In the emergency department patient was awake. She was described as flailing her arms and very agitated. She was given IV Haldol and Ativan. However this did not improve her agitation. Patient was intubated by ER because of inability to, her down. She then had CT of the head which was negative, chest x -ray negative, KUB showed mild ileus. Lumbar puncture was done and CSF analysis was negative. Initial CSF cultures are negative. On presentation patient's blood pressure is 135/54 then increase to systolic 200s. Hypertension improved as patient is sedated after intubation. Past Med Surg Social Fam HX - Past Medical History Medical history: hyperlipidemia, hypertension, thyroid disease Psychiatric history: no psych history - Past Surgical History Surgical History: cholecystectomy, hysterectomy - Social History Smoking Status: Never smoker Smokeless Tobacco Status: No Alcohol use: none Drug use: none Medications and Allergies Baclofen [Lioresal] 10 mg PO TID 10/18/17 [History] Estrogens, Conjugated [Premarin Cream] 1 appl VG MO 10/18/17 [History] Ibuprofen 800 mg PO BID PRN 10/18/17 [History] Levothyroxine Sodium [Levoxyl] 75 mcg PO DAILY 10/18/17 [History] Mirtazapine [Remeron] 15 mg PO HS 10/18/17 [History] Olopatadine HCl [Pataday] 1 drop BOTH EYES BID 10/18/17 [History] Omeprazole [PriLOSEC] 40 mg PO DAILY 10/18/17 [History] PARoxetine HCl [Paroxetine HCl] 10 mg PO DAILY 10/18/17 [History] Pravastatin Sodium [Pravachol] 20 mg PO QPM 10/18/17 [History] Trazodone HCl 100 mg PO HS 10/18/17 [History] cloNIDine HCl [CloNIDine HCl] 0.1 mg PO DAILY 10/18/17 [History] 3 Allergy/AdvReac Type Severity Reaction Status Date / Time No Known Allergies Allergy Verified 09/13/16 06:19 ROS unobtainable: due to endotracheal tube, due to mental status All Systems: The remainder of the systems were reviewed and are negative Physical Examination - Vital Signs Vital Signs: Initial Vital Signs Temp Pulse Resp BP Pulse Ox 97.6 F 122 20 135/54 97 10/18/17 10:11 10/18/17 10:11 10/18/17 10:11 10/18/17 10:11 10/18/17 10:11 - Exam Exam: General: Intubated, medically induced coma HEENT: Head atraumatic, normocephalic, pupils reactive to light, absent lymphadenopathy, Heart: Regular rate and rhythm with no murmur Lungs: Clear to auscultation bilaterally Abdomen: Soft nondistended positive bowel sounds Skin: warm and dry Extremities: Absent pedal edema, Neuro: Unable to do neuro exam as patient is intubated and sedated. Bilateral plantar reflexes downward. Deep tender reflexes not successful as patient is rigid when trying to move her extremities Vascular: Pedal and radial pulses 2 out of 4 Results - Laboratory Findings CBC and BMP: 10/18/17 11:34 10/18/17 11:34 Abnormal lab findings: Abnormal lab results Carboxyhemoglobin 5.2 % (0-5) H 10/18/17 11:34 Potassium 3.0 mEq/L (3.5-5.1) L 10/18/17 11:34 Glucose 123 mg/dL (70-105) H 10/18/17 11:34 POC Glucose 109 mg/dL (70-99) H 10/18/17 10:06 Globulin 2.2 g/dL (2.4-3.5) L 10/18/17 11:34 Urine Blood Small (Negative) H 10/18/17 11:43 Urine Microscopic RBC 3-5 per hpf (0-3) H 10/18/17 11:43 Ur Squamous Epith Cells Moderate per lpf (None-Few) H 10/18/17 11:43 Consult Discharge Plan - Plan Referrals: Bladimir Dunne MD [Primary Care Provider] - <José Miguel Allen I - Last Filed: 10/18/17 17:11> Date of Encounter: 10/18/17 Assessment and Plan (1) Encephalopathy Current Visit: Yes Status: Acute Pt was seen and examined, my medical decision was reviewed with the Resident Physician, I agree with the documented findings, disposition and treatment plas as described except to the extent set forth below This patient was seems to be on multiple medication for anxiety depression, was presented with significant delirium and now been intubated this elevated blood pressure though she is not having all full-blown symptoms of serotonin syndrome but that remains a possibility perhaps he have to be more careful now with the withdrawal of all these medication that she was on. With elevated blood pressure PRESS is in the differential , I suggest controlling the blood pressure but not to lower it too low and keep it accordingly he can do MRI of the brain when she is clinically stable in the meantime keep her on antiplatelet therapy with aspirin only why NG tube or per rectal as it quite possible that she may had a ischemic infarct with this elevated blood pressure We will follow the patient with you while she is off sedation so he can have a better neurological assessment José Miguel Allen MD History of Present Illness HPI: Ms. Garvey is a 77 year old female All Systems: The remainder of the systems were reviewed and are negative Physical Examination - Vital Signs Vital Signs: Initial Vital Signs Temp Pulse Resp BP Pulse Ox 97.6 F 122 20 135/54 97 10/18/17 10:11 10/18/17 10:11 10/18/17 10:11 10/18/17 10:11 10/18/17 10:11 Results - Laboratory Findings CBC and BMP: 10/18/17 11:34 10/18/17 11:34 Abnormal lab findings: Abnormal lab results Carboxyhemoglobin 5.2 % (0-5) H 10/18/17 11:34 Potassium 3.0 mEq/L (3.5-5.1) L 10/18/17 11:34 Glucose 123 mg/dL (70-105) H 10/18/17 11:34 POC Glucose 109 mg/dL (70-99) H 10/18/17 10:06 Globulin 2.2 g/dL (2.4-3.5) L 10/18/17 11:34 Urine Blood Small (Negative) H 10/18/17 11:43 Urine Microscopic RBC 3-5 per hpf (0-3) H 10/18/17 11:43 Ur Squamous Epith Cells Moderate per lpf (None-Few) H 10/18/17 11:43
[2017-10-18] MEDS: Lacri-Lube 3.5 GM TUBE BOTH EYES SCH ×3 (17:04→23:58)
[2017-10-18] MEDS: Dexmedetomidine HCl 400 MCG/100 ML MLS IVC SCH (17:04)
[2017-10-18 17:19] LABS: ABG Base Excess 2 mEq/L (-2 to 3); ABG HCO3 25 mEq/L (21-27); ABG Oxygen Saturation 99 % (95-98); ABG PCO2 32 mmHg (35-45); ABG PH 7.49 pH Units (7.32-7.45); ABG PO2 125 mmHg (85-104); ABG TCO2 26 mEq/L (20-26); Blood Gas Modality VC; Blood Gas PEEP 5 cm H2O; Blood Gas Respiration Rate 12; Blood Gas VT 450 cc
[2017-10-18] MEDS: Aspirin 325 MG TABLET GTUBE SCH (17:20)
--- NOTE | 2017-10-18 19:26 | Emergency Department Note ---
Disposition Clinical Impression: Encephalopathy, Hypertension Disposition: Admitted As Inpatient Condition: Fair General Adult HPI - General Chief complaint: ED Weakness Stated complaint: lethargic Time Seen by Provider: 10/18/17 10:11 Source: family, EMS Limitations: no limitations - History of Present Illness Pain Scale: 0 - Related Data Home Medications Medication Instructions Recorded Confirmed Baclofen [Lioresal] 10 mg PO TID 10/18/17 10/18/17 Estrogens, Conjugated [Premarin 1 appl VG MO 10/18/17 10/18/17 Cream] Ibuprofen 800 mg PO BID PRN 10/18/17 10/18/17 Levothyroxine Sodium [Levoxyl] 75 mcg PO DAILY 10/18/17 10/18/17 Mirtazapine [Remeron] 15 mg PO HS 10/18/17 10/18/17 Olopatadine HCl [Pataday] 1 drop BOTH EYES BID 10/18/17 10/18/17 Omeprazole [PriLOSEC] 40 mg PO DAILY 10/18/17 10/18/17 PARoxetine HCl [Paroxetine HCl] 10 mg PO DAILY 10/18/17 10/18/17 Pravastatin Sodium [Pravachol] 20 mg PO QPM 10/18/17 10/18/17 Trazodone HCl 100 mg PO HS 10/18/17 10/18/17 cloNIDine HCl [CloNIDine HCl] 0.1 mg PO DAILY 10/18/17 10/18/17 Allergies Allergy/AdvReac Type Severity Reaction Status Date / Time No Known Allergies Allergy Verified 09/13/16 06:19 Past Medical History - Past Medical History Medical history: Reports: hyperlipidemia, hypertension, thyroid disease Surgical history: Reports: cholecystectomy, hysterectomy Psychiatric history: Reports: no psych history SAWSMITH history: Reports: non-contributory - Social History Smoking Status: Never smoker Smokeless Tobacco Status: No Alcohol use: Reports: none Drug use: Reports: none Physical Exam - General Limitations: no limitations General appearance: lethargic, in distress Course Vital Signs Temperature 97.6 F 10/18/17 10:11 Pulse Rate 122 10/18/17 10:11 Respiratory Rate 20 10/18/17 10:11 Blood Pressure 135/54 10/18/17 10:11 O2 Sat by Pulse Oximetry 97 10/18/17 10:11 Temperature 99.3 F 10/19/17 08:06 Pulse Rate 81 10/19/17 07:26 Respiratory Rate 12 10/19/17 08:02 Blood Pressure 133/51 10/19/17 08:02 O2 Sat by Pulse Oximetry 97 10/19/17 08:02 Oxygen Delivery Oxygen Delivery Ventilator Procedures - Intubation Additional Comments: Endotracheal Intubation Date: 10/18/2017 Time: 1130 Indication: Respiratory Distress Resident: Samuel Attending: Ailyn A time-out was completed verifying correct patient, procedure, site, positioning , and special equipment if applicable. The patient was placed in a flat position. Sedation was obtained using 20mg Etomidate, and additionally with 100mg Rocuronium. The patient was easily ventilated using an ambu bag. The [employer] with MAC 3 BLADE was used and inserted into the oropharynx at which time there was a Grade 1 view of the vocal cords. A 7.5- niuean endotracheal tube was inserted and visualized going through the vocal cords. The stylette was removed. Colorimetric change was visualized on the CO2 meter. Breath sounds were heard in both lung young equally. The endotracheal tube was placed at 23 cm, measured at the teeth. Dr. Diez and Dr. Robertson was present for the entire procedure. A chest x-ray was ordered to assess for pneumothorax and verify endotracheal tube placement. Estimated Blood Loss: 1cc The patient tolerated the procedure well and there were no complications. Medical Decision Making - Lab Data Result diagrams: 10/19/17 04:30 10/19/17 04:30 Lab Results 10/18/17 10/18/17 10/18/17 Range/Units 10:06 11:34 11:34 WBC 6.6 (4.3-11.1) K/mcL RBC 4.37 (3.82-4.97) M/mcL Hgb 12.6 (11.5-15.4) g/dL Hct 39.3 (35.3-44.9) % MCV 89.9 (83.0-100.0) fL MCH 28.8 (28.0-33.3) pg MCHC 32.1 (31.6-35.5) g/dL RDW 13.6 (11.5-14.5) % Plt Count 305 (140-400) K/mcL MPV 9.9 (9.4-12.4) fL Immature Gran % 0.2 (0-4) % Seg Neutrophils % 83.2 % Lymphocytes % 12.1 % Monocytes % 3.0 % Eosinophils % 0.9 % Basophils % 0.6 % Neutrophils # 5.5 (1.6-8.9) K/mcL Lymphocytes # 0.8 (0.6-4.6) K/mcL Monocytes # 0.2 (0.0-1.3) K/mcL Eosinophils # 0.1 (0.0-0.6) K/mcL Basophils # 0.0 (0.0-0.2) K/mcL PT 11.4 (9.4-12.1) Seconds INR 1.1 APTT 26.0 (26.0-36.0) Seconds Carboxyhemoglobin (0-5) % Sodium (136-145) mEq/L Potassium (3.5-5.1) mEq/L Chloride (98-107) mEq/L Carbon Dioxide (23-29) mEq/L BUN (8-23) mg/dL Creatinine (0.60-1.20) mg/dL Est GFR ( Amer) (> 60) Est GFR (Non-Af Amer) (> 60) BUN/Creatinine Ratio (6-26) Glucose (70-105) mg/dL POC Glucose 109 H (70-99) mg/dL Calculated Osmolality (280-300) Lactic Acid (0.5-2.2) mmol/L Calcium (8.6-10.3) mg/dL Phosphorus (2.7-4.5) mg/dL Magnesium (1.6-2.6) mg/dL Total Bilirubin (0.3-1.0) mg/dL Direct Bilirubin (0.0-0.2) mg/dL Indirect Bilirubin (0.0-1.2) mg/dL AST (13-39) Units/L ALT (7-52) Units/L Alkaline Phosphatase (34-104) Units/L Ammonia (16-53) mcmol/L Creatine Kinase (30-223) Units/L Troponin I (< 0.04) ng/mL Serum Total Protein (6.4-8.9) g/dL Albumin (3.5-5.7) g/dL Globulin (2.4-3.5) g/dL Albumin/Globulin Ratio (1.1-2.2) TSH (0.340-5.600) mcIU/mL Urine Color (Yellow) Urine Clarity (Clear) Urine pH (5.0-8.0) pH Units Ur Specific [place] (1.010-1.025) Urine Protein (Neg-Trace) mg/dL Urine Glucose (UA) (Normal) mg/dL Urine Ketones (Negative) mg/dL Urine Blood (Negative) Urine Nitrite (Negative) Urine Bilirubin (Negative) Urine Urobilinogen (Normal) mg/dL Ur Leukocyte Esterase (Negative) Urine Microscopic RBC (0-3) per hpf Urine Microscopic WBC (0-3) per hpf Ur Squamous Epith Cells (None-Few) per lpf Urine Bacteria (None-Few) per hpf Hyaline Casts (None-Few) per lpf Ur Culture Indicated? (NO) CSF Volume mL CSF Appearance (Clear) CSF Color (Colorless) CSF RBC (0.000 - 0.002) M/mcL CSF Tot Nucleated Cells (0-5) TNC/mcL CSF Seg Neutrophils CSF Band Neutrophils % CSF Lymphocytes % CSF Monocytes % CSF Eosinophils % CSF Basophils % CSF Other Cells % CSF Glucose (40-70) mg/dL CSF Xanth Comm (Not Observe) CSF Total Protein (15-45) mg/dL Urine Opiates Screen (Pxjgyy=059) ng/mL Ur Barbiturates Screen (Hfesrx=885) ng/mL Ur Phencyclidine Scrn (Cutoff=25) ng/mL Ur Amphetamines Screen (Motsik=2522) ng/mL U Benzodiazepines Scrn (Axiadm=852) ng/mL Urine Cocaine Screen (Cutoff= 300) ng/mL U Marijuana (THC) Screen (Cutoff = 50) ng/mL Ethyl Alcohol (Less than 10) mg/dL 10/18/17 10/18/17 10/18/17 Range/Units 11:34 11:34 11:34 WBC (4.3-11.1) K/mcL RBC (3.82-4.97) M/mcL Hgb (11.5-15.4) g/dL Hct (35.3-44.9) % MCV (83.0-100.0) fL MCH (28.0-33.3) pg MCHC (31.6-35.5) g/dL RDW (11.5-14.5) % Plt Count (140-400) K/mcL MPV (9.4-12.4) fL Immature Gran % (0-4) % Seg Neutrophils % % Lymphocytes % % Monocytes % % Eosinophils % % Basophils % % Neutrophils # (1.6-8.9) K/mcL Lymphocytes # (0.6-4.6) K/mcL Monocytes # (0.0-1.3) K/mcL Eosinophils # (0.0-0.6) K/mcL Basophils # (0.0-0.2) K/mcL PT (9.4-12.1) Seconds INR APTT (26.0-36.0) Seconds Carboxyhemoglobin 5.2 H (0-5) % Sodium 139 (136-145) mEq/L Potassium 3.0 L (3.5-5.1) mEq/L Chloride 104 (98-107) mEq/L Carbon Dioxide 23 (23-29) mEq/L BUN 14 (8-23) mg/dL Creatinine 0.82 (0.60-1.20) mg/dL Est GFR ( Amer) > 60 (> 60) Est GFR (Non-Af Amer) > 60 (> 60) BUN/Creatinine Ratio 17 (6-26) Glucose 123 H (70-105) mg/dL POC Glucose (70-99) mg/dL Calculated Osmolality 290 (280-300) Lactic Acid (0.5-2.2) mmol/L Calcium 8.6 (8.6-10.3) mg/dL Phosphorus (2.7-4.5) mg/dL Magnesium (1.6-2.6) mg/dL Total Bilirubin 0.3 (0.3-1.0) mg/dL Direct Bilirubin 0.1 (0.0-0.2) mg/dL Indirect Bilirubin 0.2 (0.0-1.2) mg/dL AST 24 (13-39) Units/L ALT 16 (7-52) Units/L Alkaline Phosphatase 55 (34-104) Units/L Ammonia 42 (16-53) mcmol/L Creatine Kinase 182 (30-223) Units/L Troponin I < 0.03 (< 0.04) ng/mL Serum Total Protein 6.5 (6.4-8.9) g/dL Albumin 4.3 (3.5-5.7) g/dL Globulin 2.2 L (2.4-3.5) g/dL Albumin/Globulin Ratio 2.0 (1.1-2.2) TSH (0.340-5.600) mcIU/mL Urine Color (Yellow) Urine Clarity (Clear) Urine pH (5.0-8.0) pH Units Ur Specific [place] (1.010-1.025) Urine Protein (Neg-Trace) mg/dL Urine Glucose (UA) (Normal) mg/dL Urine Ketones (Negative) mg/dL Urine Blood (Negative) Urine Nitrite (Negative) Urine Bilirubin (Negative) Urine Urobilinogen (Normal) mg/dL Ur Leukocyte Esterase (Negative) Urine Microscopic RBC (0-3) per hpf Urine Microscopic WBC (0-3) per hpf Ur Squamous Epith Cells (None-Few) per lpf Urine Bacteria (None-Few) per hpf Hyaline Casts (None-Few) per lpf Ur Culture Indicated? (NO) CSF Volume mL CSF Appearance (Clear) CSF Color (Colorless) CSF RBC (0.000 - 0.002) M/mcL CSF Tot Nucleated Cells (0-5) TNC/mcL CSF Seg Neutrophils CSF Band Neutrophils % CSF Lymphocytes % CSF Monocytes % CSF Eosinophils % CSF Basophils % CSF Other Cells % CSF Glucose (40-70) mg/dL CSF Xanth Comm (Not Observe) CSF Total Protein (15-45) mg/dL Urine Opiates Screen (Lugylt=675) ng/mL Ur Barbiturates Screen (Rhawzh=109) ng/mL Ur Phencyclidine Scrn (Cutoff=25) ng/mL Ur Amphetamines Screen (Rymnge=6728) ng/mL U Benzodiazepines Scrn (Tadsfc=854) ng/mL Urine Cocaine Screen (Cutoff= 300) ng/mL U Marijuana (THC) Screen (Cutoff = 50) ng/mL Ethyl Alcohol < 10 (Less than 10) mg/dL 10/18/17 10/18/17 10/18/17 Range/Units 11:34 11:34 11:34 WBC (4.3-11.1) K/mcL RBC (3.82-4.97) M/mcL Hgb (11.5-15.4) g/dL Hct (35.3-44.9) % MCV (83.0-100.0) fL MCH (28.0-33.3) pg MCHC (31.6-35.5) g/dL RDW (11.5-14.5) % Plt Count (140-400) K/mcL MPV (9.4-12.4) fL Immature Gran % (0-4) % Seg Neutrophils % % Lymphocytes % % Monocytes % % Eosinophils % % Basophils % % Neutrophils # (1.6-8.9) K/mcL Lymphocytes # (0.6-4.6) K/mcL Monocytes # (0.0-1.3) K/mcL Eosinophils # (0.0-0.6) K/mcL Basophils # (0.0-0.2) K/mcL PT (9.4-12.1) Seconds INR APTT (26.0-36.0) Seconds Carboxyhemoglobin (0-5) % Sodium (136-145) mEq/L Potassium (3.5-5.1) mEq/L Chloride (98-107) mEq/L Carbon Dioxide (23-29) mEq/L BUN (8-23) mg/dL Creatinine (0.60-1.20) mg/dL Est GFR ( Amer) (> 60) Est GFR (Non-Af Amer) (> 60) BUN/Creatinine Ratio (6-26) Glucose (70-105) mg/dL POC Glucose (70-99) mg/dL Calculated Osmolality (280-300) Lactic Acid 1.6 (0.5-2.2) mmol/L Calcium (8.6-10.3) mg/dL Phosphorus 3.1 (2.7-4.5) mg/dL Magnesium 1.8 (1.6-2.6) mg/dL Total Bilirubin (0.3-1.0) mg/dL Direct Bilirubin (0.0-0.2) mg/dL Indirect Bilirubin (0.0-1.2) mg/dL AST (13-39) Units/L ALT (7-52) Units/L Alkaline Phosphatase (34-104) Units/L Ammonia (16-53) mcmol/L Creatine Kinase (30-223) Units/L Troponin I (< 0.04) ng/mL Serum Total Protein (6.4-8.9) g/dL Albumin (3.5-5.7) g/dL Globulin (2.4-3.5) g/dL Albumin/Globulin Ratio (1.1-2.2) TSH 2.393 (0.340-5.600) mcIU/mL Urine Color (Yellow) Urine Clarity (Clear) Urine pH (5.0-8.0) pH Units Ur Specific [place] (1.010-1.025) Urine Protein (Neg-Trace) mg/dL Urine Glucose (UA) (Normal) mg/dL Urine Ketones (Negative) mg/dL Urine Blood (Negative) Urine Nitrite (Negative) Urine Bilirubin (Negative) Urine Urobilinogen (Normal) mg/dL Ur Leukocyte Esterase (Negative) Urine Microscopic RBC (0-3) per hpf Urine Microscopic WBC (0-3) per hpf Ur Squamous Epith Cells (None-Few) per lpf Urine Bacteria (None-Few) per hpf Hyaline Casts (None-Few) per lpf Ur Culture Indicated? (NO) CSF Volume mL CSF Appearance (Clear) CSF Color (Colorless) CSF RBC (0.000 - 0.002) M/mcL CSF Tot Nucleated Cells (0-5) TNC/mcL CSF Seg Neutrophils CSF Band Neutrophils % CSF Lymphocytes % CSF Monocytes % CSF Eosinophils % CSF Basophils % CSF Other Cells % CSF Glucose (40-70) mg/dL CSF Xanth Comm (Not Observe) CSF Total Protein (15-45) mg/dL Urine Opiates Screen (Yuopmg=915) ng/mL Ur Barbiturates Screen (Qvliuy=922) ng/mL Ur Phencyclidine Scrn (Cutoff=25) ng/mL Ur Amphetamines Screen (Htoedg=9796) ng/mL U Benzodiazepines Scrn (Qdllcs=243) ng/mL Urine Cocaine Screen (Cutoff= 300) ng/mL U Marijuana (THC) Screen (Cutoff = 50) ng/mL Ethyl Alcohol (Less than 10) mg/dL 10/18/17 10/18/17 10/18/17 Range/Units 11:43 11:43 13:00 WBC (4.3-11.1) K/mcL RBC (3.82-4.97) M/mcL Hgb (11.5-15.4) g/dL Hct (35.3-44.9) % MCV (83.0-100.0) fL MCH (28.0-33.3) pg MCHC (31.6-35.5) g/dL RDW (11.5-14.5) % Plt Count (140-400) K/mcL MPV (9.4-12.4) fL Immature Gran % (0-4) % Seg Neutrophils % % Lymphocytes % % Monocytes % % Eosinophils % % Basophils % % Neutrophils # (1.6-8.9) K/mcL Lymphocytes # (0.6-4.6) K/mcL Monocytes # (0.0-1.3) K/mcL Eosinophils # (0.0-0.6) K/mcL Basophils # (0.0-0.2) K/mcL PT (9.4-12.1) Seconds INR APTT (26.0-36.0) Seconds Carboxyhemoglobin (0-5) % Sodium (136-145) mEq/L Potassium (3.5-5.1) mEq/L Chloride (98-107) mEq/L Carbon Dioxide (23-29) mEq/L BUN (8-23) mg/dL Creatinine (0.60-1.20) mg/dL Est GFR ( Amer) (> 60) Est GFR (Non-Af Amer) (> 60) BUN/Creatinine Ratio (6-26) Glucose (70-105) mg/dL POC Glucose (70-99) mg/dL Calculated Osmolality (280-300) Lactic Acid (0.5-2.2) mmol/L Calcium (8.6-10.3) mg/dL Phosphorus (2.7-4.5) mg/dL Magnesium (1.6-2.6) mg/dL Total Bilirubin (0.3-1.0) mg/dL Direct Bilirubin (0.0-0.2) mg/dL Indirect Bilirubin (0.0-1.2) mg/dL AST (13-39) Units/L ALT (7-52) Units/L Alkaline Phosphatase (34-104) Units/L Ammonia (16-53) mcmol/L Creatine Kinase (30-223) Units/L Troponin I (< 0.04) ng/mL Serum Total Protein (6.4-8.9) g/dL Albumin (3.5-5.7) g/dL Globulin (2.4-3.5) g/dL Albumin/Globulin Ratio (1.1-2.2) TSH (0.340-5.600) mcIU/mL Urine Color Yellow (Yellow) Urine Clarity Clear (Clear) Urine pH 7.5 (5.0-8.0) pH Units Ur Specific [place] 1.012 (1.010-1.025) Urine Protein Negative (Neg-Trace) mg/dL Urine Glucose (UA) Normal (Normal) mg/dL Urine Ketones Negative (Negative) mg/dL Urine Blood Small H (Negative) Urine Nitrite Negative (Negative) Urine Bilirubin Negative (Negative) Urine Urobilinogen Normal (Normal) mg/dL Ur Leukocyte Esterase Negative (Negative) Urine Microscopic RBC 3-5 H (0-3) per hpf Urine Microscopic WBC 0-3 (0-3) per hpf Ur Squamous Epith Cells Moderate H (None-Few) per lpf Urine Bacteria None Seen (None-Few) per hpf Hyaline Casts None Seen (None-Few) per lpf Ur Culture Indicated? NO (NO) CSF Volume 4.0 mL CSF Appearance Clear (Clear) CSF Color Colorless (Colorless) CSF RBC < 0.002 (0.000 - 0.002) M/mcL CSF Tot Nucleated Cells < 3 (0-5) TNC/mcL CSF Seg Neutrophils TNP CSF Band Neutrophils % Test Not Performed CSF Lymphocytes % Test Not Performed CSF Monocytes % Test Not Performed CSF Eosinophils % Test Not Performed CSF Basophils % Test Not Performed CSF Other Cells % Test Not Performed CSF Glucose 69 (40-70) mg/dL CSF Xanth Comm Not Observed (Not Observe) CSF Total Protein 44 (15-45) mg/dL Urine Opiates Screen Negative (Vngjdf=947) ng/mL Ur Barbiturates Screen Negative (Legsqs=923) ng/mL Ur Phencyclidine Scrn Negative (Cutoff=25) ng/mL Ur Amphetamines Screen Negative (Dlyset=2093) ng/mL U Benzodiazepines Scrn Negative (Zadpzz=262) ng/mL Urine Cocaine Screen Negative (Cutoff= 300) ng/mL U Marijuana (THC) Screen Negative (Cutoff = 50) ng/mL Ethyl Alcohol (Less than 10) mg/dL Attestation Statement - Attestation Attestation: I, Kaiden Robertson DO, examined this patient [id number] and my medical decision-making was reviewed with Gadiel Baker PGY-1, Resident Physician. I agree with the documented findings, disposition and treatment plan as described except to the extent set forth below. Please see my progress notes for details.
[2017-10-18] MEDS ORDERED: 0.9 % Sodium Chloride 1,000 ML ONE (20:19)
[2017-10-18] MEDS: *HR* Midazolam HCl 2 MG/2 ML VIAL IVP PRN ×3 (20:30→23:27)
[2017-10-18] MEDS: Chlorhexidine Rinse 15 ML MOUTHWASH MM SCH (20:45)
[2017-10-18] MEDS ORDERED: 0.9 % Sodium Chloride 500 ML IVC ONE (21:32)
[2017-10-18] MEDS ORDERED: 0.9 % Sodium Chloride 500 ML ONE (21:35)
[2017-10-19] MEDS: *HR* Midazolam HCl 2 MG/2 ML VIAL IVP PRN ×2 (00:47→01:41)
[2017-10-19] MEDS: FentaNYL (PF) 1,000 MCG in 0.9 % Sodium Chloride 80 ML IVC SCH ×2 (02:53→15:10)
[2017-10-19 04:28] LABS: ABG Base Excess -1 mEq/L (-2 to 3); ABG HCO3 24 mEq/L (21-27); ABG Oxygen Saturation 94 % (95-98); ABG PCO2 41 mmHg (35-45); ABG PH 7.39 pH Units (7.32-7.45); ABG PO2 70 mmHg (85-104); ABG TCO2 26 mEq/L (20-26); Blood Gas Modality VC; Blood Gas PEEP 5 cm H2O; Blood Gas Respiration Rate 12; Blood Gas VT 450 cc
[2017-10-19] MEDS: Lacri-Lube 3.5 GM TUBE BOTH EYES SCH ×5 (04:39→20:24)
[2017-10-19 04:49] LABS: Basophils # 0.1 K/mcL (0.0-0.2); Basophils % 0.4 %; Eosinophils % 0.3 %; Hematocrit 37.2 % (35.3-44.9); Hemoglobin 11.9 g/dL (11.5-15.4); Immature Granulocytes % 0.4 % (0-4); Lymphocytes # 2.1 K/mcL (0.6-4.6); Lymphocytes % 17.8 %; Mean Corpuscular Hemoglobin 28.8 pg (28.0-33.3); Mean Corpuscular Volume 90.1 fL (83.0-100.0); Mean Platelet Volume 9.8 fL (9.4-12.4); Monocytes # 0.7 K/mcL (0.0-1.3); Monocytes % 6.4 %; Neutrophils # 8.6 K/mcL (1.6-8.9); Nucleated Red Blood Cells 0.2 /100 WBC (0); Platelet Count 316 K/mcL (140-400); Red Blood Count 4.13 M/mcL (3.82-4.97); Red Cell Distribution Width 13.5 % (11.5-14.5); Segmented Neutrophils % 74.7 %
[2017-10-19 05:02] LABS: Alanine Aminotransferase 14 Units/L (7-52); Albumin 3.8 g/dL (3.5-5.7); Albumin/Globulin Ratio 1.7 (1.1-2.2); Alkaline Phosphatase 51 Units/L (34-104); Aspartate Amino Transferase 21 Units/L (13-39); BUN/Creatinine Ratio 17 (6-26); Bilirubin,Total 0.4 mg/dL (0.3-1.0); Blood Urea Nitrogen 12 mg/dL (8-23); Calcium 8.1 mg/dL (8.6-10.3); Carbon Dioxide 22 mEq/L (23-29); Chloride 105 mEq/L (98-107); Globulin 2.2 g/dL (2.4-3.5); Glucose 103 mg/dL (70-105); Osmolality,Calculated 280 (280-300); Potassium 3.4 mEq/L (3.5-5.1); Sodium 135 mEq/L (136-145); eGFR For African Americans > 60 (> 60); eGFR For Non-African Americans > 60 (> 60)
[2017-10-19] MEDS ORDERED: *HR* Midazolam HCl 5 MG/5 ML VIAL IVP ONE ×4 (07:24→11:34)
--- NOTE | 2017-10-19 07:24 | Pulmonology Progress Note ---
<AlexiaJadon W - Last Filed: 10/19/17 11:53> Date of Encounter: 10/19/17 Objective PUL Vital signs: Last Vital Signs Temp 99.3 F 10/19/17 08:06 Pulse 81 10/19/17 07:26 Resp 12 10/19/17 08:02 BP 133/51 10/19/17 08:02 Pulse Ox 97 10/19/17 08:02 Ventilator Settings Ventilator Settings: Ventilator Settings, Last 8 Hours Ventilator Mode VC+ Ventilator Mode VC+ Ventilator Mode VC+ Ventilator Mode VC+ Ventilator Mode VC+ Ventilator Mode VC+ Ventilator Mode VC+ Ventilator Mode VC+ Ventilator Mode VC+ Ventilator Mode VC+ Ventilator Mode VC+ Ventilator Tidal Volume 450 Setting Ventilator Tidal Volume 450 Setting Ventilator Tidal Volume 450 Setting Ventilator Tidal Volume 450 Setting Ventilator Tidal Volume 450 Setting Ventilator Tidal Volume 450 Setting Ventilator Tidal Volume 450 Setting Ventilator Tidal Volume 450 Setting Ventilator Tidal Volume 450 Setting Ventilator Tidal Volume 450 Setting Ventilator Tidal Volume 450 Setting Ventilator Respiratory Rate 12 Setting Ventilator Respiratory Rate 12 Setting Ventilator Respiratory Rate 12 Setting Ventilator Respiratory Rate 12 Setting Ventilator Respiratory Rate 12 Setting Ventilator Respiratory Rate 12 Setting Ventilator Respiratory Rate 12 Setting Ventilator Respiratory Rate 12 Setting Ventilator Respiratory Rate 12 Setting Ventilator Respiratory Rate 12 Setting Ventilator Respiratory Rate 12 Setting Actual Respiratory Rate 12 Actual Respiratory Rate 15 Actual Respiratory Rate 12 Actual Respiratory Rate 12 Actual Respiratory Rate 15 Actual Respiratory Rate 15 Actual Respiratory Rate 12 Actual Respiratory Rate 12 Actual Respiratory Rate 12 Actual Respiratory Rate 12 Positive End Expiratory 5 Pressure Positive End Expiratory 5 Pressure Positive End Expiratory 5 Pressure Positive End Expiratory 5 Pressure Positive End Expiratory 5 Pressure Positive End Expiratory 5 Pressure Positive End Expiratory 5 Pressure Positive End Expiratory 5 Pressure Positive End Expiratory 5 Pressure Positive End Expiratory 5 Pressure Positive End Expiratory 5 Pressure Peak Inspiratory Airway 16 Pressure Peak Inspiratory Airway 18 Pressure Peak Inspiratory Airway 19 Pressure Peak Inspiratory Airway 18 Pressure Peak Inspiratory Airway 18 Pressure Peak Inspiratory Airway 20 Pressure Peak Inspiratory Airway 19 Pressure Peak Inspiratory Airway 19 Pressure Peak Inspiratory Airway 19 Pressure Peak Inspiratory Airway 19 Pressure Results - Laboratory Findings CBC and BMP: 10/19/17 08:10 10/19/17 08:10 ABG ABG pH 7.39 pH Units (7.32-7.45) 10/19/17 04:25 ABG pCO2 41 mmHg (35-45) 10/19/17 04:25 ABG pO2 70 mmHg (85-104) L 10/19/17 04:25 ABG O2 Saturation 94 % (95-98) L 10/19/17 04:25 PT/INR, D-dimer PT 11.4 Seconds (9.4-12.1) 10/18/17 11:34 Abnormal lab findings: Abnormal lab results WBC 11.5 K/mcL (4.3-11.1) H D 10/19/17 04:30 Nucleated RBCs/100 WBC 0.2 /100 WBC (0) H 10/19/17 04:30 ABG pO2 70 mmHg (85-104) L 10/19/17 04:25 ABG O2 Saturation 94 % (95-98) L 10/19/17 04:25 Carboxyhemoglobin 5.2 % (0-5) H 10/18/17 11:34 Sodium 135 mEq/L (136-145) L 10/19/17 04:30 Potassium 3.4 mEq/L (3.5-5.1) L 10/19/17 04:30 Carbon Dioxide 22 mEq/L (23-29) L 10/19/17 04:30 Calcium 8.1 mg/dL (8.6-10.3) L 10/19/17 04:30 Magnesium 1.5 mg/dL (1.6-2.6) L 10/19/17 04:30 Serum Total Protein 6.0 g/dL (6.4-8.9) L 10/19/17 04:30 Globulin 2.2 g/dL (2.4-3.5) L 10/19/17 04:30 Urine Blood Small (Negative) H 10/18/17 11:43 Urine Microscopic RBC 3-5 per hpf (0-3) H 10/18/17 11:43 Ur Squamous Epith Cells Moderate per lpf (None-Few) H 10/18/17 11:43 - Clinical Findings Intake & Output: Intake & Output 10/18/17 10/19/17 10/19/17 23:59 07:59 15:59 Intake Total 1107 / 1107 563 / 563 Output Total 250 / 250 500 / 500 400 / 400 Balance 857 / 857 63 / 63 -400 / -400 Weight 64.9 kg Consult Discharge Plan - Plan Referrals: Bladimir Dunne MD [Primary Care Provider] - - Attending Attestation I examined this patient and my medical decision-making was reviewed with the Resident Physician. I agree with the documented findings, disposition and treatment plan as described except to the extent set forth below. We independently had [id number] contact with the patient Patient seen and examined at bedside Labs, radiology, chart personally reviewed. Management was reviewed during multidisciplinary critical care rounds. CAR JOCKEY: Remains encephalopathic and unable to follow commands but noted to move all extremities without clear deficit no evidence of hyperreflexia or clonus MRI today Pulm: Intubated with planned spontaneous breathing trial if not impaired by agitation Cards: Hypertensive emergency blood pressure much better controlled today on sedation for then can restart antihypertensive no evidence of CUTE ischemic changes on MRI FEN-GI: Nothing by mouth for now Renal: Urine output monitored continue daily trending of electrolytes and serum creatinine no evidence of rhabdomyolysis ID: Status post LP without evidence of meningitis we will hold antimicrobials at this time Heme/Onc: DVT prophylaxis given Endo: Glucose Monitored Integ/MSK: Skin Care per routine ICU Nursing Protocol to prevent ulcers. Lines: All lines examined without evidence of infection : Dispo: Remain in ICU CODE: Full <Enmanuel Maria - Last Filed: 10/19/17 17:12> Date of Encounter: 10/19/17 Time of Encounter: 08:00 Assessment and Plan (1) Encephalopathy Current Visit: Yes Status: Acute Encephalopathy of unknown origin, likely metabolic Most likely secondary to hypertensive emergency/PRES vs possible infectious etiology No obvious electrolyte disturbance or source of infection, UDS Negative Lumbar puncture was performed with CSF analysis that is grossly normal with cell differential pending Head CT is negative for acute process MRI shows two two tiny foci of acute ischemia within the right temporal lobe Patient is intubated and mildly sedated, continue precedex and continue fentanyl as needed Likely extubate later in the evening or in the morning Neurology has been consulted Plan -Consider infectious source, CXR shows "possible bibasilar pna" which is uncertain, I will check procalcitonin -Started patient on IV Zosyn -Patient still does not follow commands, we will delay extubation -Continue slow decrease in blood pressure every 24 hours -Appreciate neurology recommendations (2) Hypertensive emergency Current Visit: Yes Status: Acute Hypertensive emergency, SBP >210 on arrival Patient has neurological symptoms including encephalopathy, likely secondary to HTN I spoke with the patient's PCP, Dr. Dunne, who states that the patient has not had history of HTN to his knowledge The patient is on PRN clonidine for anxiety. BP has been normal in previous office visits Patient's does say she abruptly stopped Clonidine several days ago, however he does not know why This may present a source of hypertension, if there is a rebound Renal doppler ultrasound is pending We will continue to drop the blood pressure (3) Endotracheally intubated Current Visit: Yes Status: Acute Patient is intubated with light sedation due to combative behavior Likely to be extubated today or tomorrow (4) History of hypothyroidism Current Visit: Yes Status: Chronic Hypothyroidism on levothyroxine TSH is stable on this admission We will continue levothyroxine IV at decreased dose (5) DVT prophylaxis Current Visit: Yes Status: Acute Pending neurovascular findings, we will use SCDs Subjective Principal diagnosis: Metabolic Encephalopathy Interval history: The patient is lying in bed at time of examination. She remains somewhat sedated, however she is significantly more arousable than she was. According to the nurse, she was somewhat responsive overnight, with occasional head nods to indicate agreement with statements. She apparently did not follow any other commands otherwise. She did have continue to have labile BP and HR. Objective PUL Vital signs: Last Vital Signs Temp 99.8 F H 10/19/17 05:00 Pulse 85 10/19/17 07:00 Resp 12 10/19/17 07:00 BP 186/86 10/19/17 07:00 Pulse Ox 94 10/19/17 07:00 Gen: Vitals noted. No acute distress. HEENT: PERRL but pinpoint, Normocephalic, atraumatic Neck: Supple. No adenopathy. Cardiac: RRR, no murmur, +S1/S2 Pulmonary: CTA bilaterally, no wheezes, rales or rhonchi, equal chest expansion Abdomen: soft, nontender, BS noted, no guarding MSK: ROM intact, no joint swelling noted Extremities: no BLE edema, nontender calf, no cyanosis or clubbing Neuro: Patient is sedated with ET tube in place, however she is agitated and moving quiet a lot. DTRs appear intact 2/4 in biceps, brachioradialis, patellar , and achilles b/l however difficult to assess due to substantial movement. There is no noted hyperonicity or increased startle response. Babinski is negative b/l Ventilator Settings Ventilator Settings: Ventilator Settings, Last 8 Hours Ventilator Mode VC+ Ventilator Mode VC+ Ventilator Mode VC+ Ventilator Mode VC+ Ventilator Mode VC+ Ventilator Mode VC+ Ventilator Mode VC+ Ventilator Mode VC+ Ventilator Mode VC+ Ventilator Mode VC+ Ventilator Mode VC+ Ventilator Mode VC+ Ventilator Tidal Volume 450 Setting Ventilator Tidal Volume 450 Setting Ventilator Tidal Volume 450 Setting Ventilator Tidal Volume 450 Setting Ventilator Tidal Volume 450 Setting Ventilator Tidal Volume 450 Setting Ventilator Tidal Volume 450 Setting Ventilator Tidal Volume 450 Setting Ventilator Tidal Volume 450 Setting Ventilator Tidal Volume 450 Setting Ventilator Tidal Volume 450 Setting Ventilator Tidal Volume 450 Setting Ventilator Respiratory Rate 12 Setting Ventilator Respiratory Rate 12 Setting Ventilator Respiratory Rate 12 Setting Ventilator Respiratory Rate 12 Setting Ventilator Respiratory Rate 12 Setting Ventilator Respiratory Rate 12 Setting Ventilator Respiratory Rate 12 Setting Ventilator Respiratory Rate 12 Setting Ventilator Respiratory Rate 12 Setting Ventilator Respiratory Rate 12 Setting Ventilator Respiratory Rate 12 Setting Ventilator Respiratory Rate 12 Setting Actual Respiratory Rate 15 Actual Respiratory Rate 12 Actual Respiratory Rate 12 Actual Respiratory Rate 15 Actual Respiratory Rate 15 Actual Respiratory Rate 12 Actual Respiratory Rate 12 Actual Respiratory Rate 12 Actual Respiratory Rate 12 Actual Respiratory Rate 12 Actual Respiratory Rate 12 Positive End Expiratory 5 Pressure Positive End Expiratory 5 Pressure Positive End Expiratory 5 Pressure Positive End Expiratory 5 Pressure Positive End Expiratory 5 Pressure Positive End Expiratory 5 Pressure Positive End Expiratory 5 Pressure Positive End Expiratory 5 Pressure Positive End Expiratory 5 Pressure Positive End Expiratory 5 Pressure Positive End Expiratory 5 Pressure Positive End Expiratory 5 Pressure Peak Inspiratory Airway 18 Pressure Peak Inspiratory Airway 19 Pressure Peak Inspiratory Airway 18 Pressure Peak Inspiratory Airway 18 Pressure Peak Inspiratory Airway 20 Pressure Peak Inspiratory Airway 19 Pressure Peak Inspiratory Airway 19 Pressure Peak Inspiratory Airway 19 Pressure Peak Inspiratory Airway 19 Pressure Peak Inspiratory Airway 18 Pressure Peak Inspiratory Airway 19 Pressure Results - Laboratory Findings CBC and BMP: 10/19/17 14:33 10/19/17 08:10 ABG ABG pH 7.39 pH Units (7.32-7.45) 10/19/17 04:25 ABG pCO2 41 mmHg (35-45) 10/19/17 04:25 ABG pO2 70 mmHg (85-104) L 10/19/17 04:25 ABG O2 Saturation 94 % (95-98) L 10/19/17 04:25 PT/INR, D-dimer PT 11.4 Seconds (9.4-12.1) 10/18/17 11:34 Abnormal lab findings: Abnormal lab results WBC 11.5 K/mcL (4.3-11.1) H D 10/19/17 04:30 Nucleated RBCs/100 WBC 0.2 /100 WBC (0) H 10/19/17 04:30 ABG pO2 70 mmHg (85-104) L 10/19/17 04:25 ABG O2 Saturation 94 % (95-98) L 10/19/17 04:25 Carboxyhemoglobin 5.2 % (0-5) H 10/18/17 11:34 Sodium 135 mEq/L (136-145) L 10/19/17 04:30 Potassium 3.4 mEq/L (3.5-5.1) L 10/19/17 04:30 Carbon Dioxide 22 mEq/L (23-29) L 10/19/17 04:30 Calcium 8.1 mg/dL (8.6-10.3) L 10/19/17 04:30 Magnesium 1.5 mg/dL (1.6-2.6) L 10/19/17 04:30 Serum Total Protein 6.0 g/dL (6.4-8.9) L 10/19/17 04:30 Globulin 2.2 g/dL (2.4-3.5) L 10/19/17 04:30 Urine Blood Small (Negative) H 10/18/17 11:43 Urine Microscopic RBC 3-5 per hpf (0-3) H 10/18/17 11:43 Ur Squamous Epith Cells Moderate per lpf (None-Few) H 10/18/17 11:43 - Clinical Findings Intake & Output: Intake & Output 10/18/17 10/18/17 10/19/17 15:59 23:59 07:59 Intake Total 1354.3 / 1374.3 1107 / 1107 563 / 563 Output Total 1200 / 1200 250 / 250 500 / 500 Balance 154.3 / 174.3 857 / 857 63 / 63 Weight 64.2 kg 64.9 kg
[2017-10-19] MEDS ORDERED: Potassium Chloride 40 MEQ, Lidocaine 1% 2 ML in D5% in Water 500 ML IVPB ONE (07:53)
[2017-10-19] MEDS: Chlorhexidine Rinse 15 ML MOUTHWASH MM SCH ×2 (08:00→20:20)
[2017-10-19] MEDS: Aspirin 325 MG TABLET GTUBE SCH (08:00)
[2017-10-19] MEDS ORDERED: cefTRIAXone 2,000 MG in Water for inj. (sterile) 20 ML 20 ML IVP SCH (08:00)
[2017-10-19 08:53] LABS: Basophils % 0.4 %; Eosinophils % 0.3 %; Hematocrit 33.7 % (35.3-44.9); Hemoglobin 10.9 g/dL (11.5-15.4); Immature Granulocytes % 0.3 % (0-4); Lymphocytes # 1.8 K/mcL (0.6-4.6); Mean Corpuscular HGB Conc 32.3 g/dL (31.6-35.5); Mean Corpuscular Hemoglobin 29.3 pg (28.0-33.3); Mean Corpuscular Volume 90.6 fL (83.0-100.0); Mean Platelet Volume 9.8 fL (9.4-12.4); Monocytes # 0.6 K/mcL (0.0-1.3); Monocytes % 6.8 %; Neutrophils # 6.4 K/mcL (1.6-8.9); Platelet Count 269 K/mcL (140-400); Red Blood Count 3.72 M/mcL (3.82-4.97); Red Cell Distribution Width 13.4 % (11.5-14.5); Segmented Neutrophils % 72.2 %
[2017-10-19] MEDS ORDERED: amLODIPine 5 MG TABLET PO SCH (09:00)
[2017-10-19 09:10] LABS: BUN/Creatinine Ratio 16 (6-26); Blood Urea Nitrogen 11 mg/dL (8-23); Calcium 7.5 mg/dL (8.6-10.3); Carbon Dioxide 22 mEq/L (23-29); Chloride 107 mEq/L (98-107); Glucose 90 mg/dL (70-105); Osmolality,Calculated 281 (280-300); Potassium 3.1 mEq/L (3.5-5.1); Sodium 136 mEq/L (136-145); eGFR For African Americans > 60 (> 60); eGFR For Non-African Americans > 60 (> 60)
[2017-10-19] MEDS: Levothyroxine Sodium 100 MCG VIAL IVP SCH (09:27)
[2017-10-19] MEDS ORDERED: Potassium Chloride Elixir 20 MEQ/15 ML UDC GTUBE ONE (09:51)
--- NOTE | 2017-10-19 11:19 | Neurology Progress Note ---
<Zhang Aleman - Last Filed: 10/19/17 11:16> Date of Encounter: 10/19/17 Time of Encounter: 11:16 Assessment and Plan (1) Encephalopathy Current Visit: Yes Status: Acute Unknown etiology. Patient is intubated and sedated. Unable to do neuro exam. Head CT negative. MRI pending. Laboratory, imaging and vital signs negative for sepsis. CSF analysis negative for infection. CSF culture negative. Urine toxicology negative. Patient is on mirtazipine, trazodone, paroxetien at home. Signs and symptoms of serotonin excess patient has: mental status changes, agitation, restlessness, tachycardia, hyperthermia, hypertension. Patient does not exhibit rigidity, hyperreflexia. This may be due to sedation. Avoid serotonergic medications. (2) Hypertensive emergency Current Visit: Yes Status: Acute BP labile in past 24 hours. On sedation BP controlled. when sedation is decreased BP can reach systolic 200s. plan for renal artery US. (3) Endotracheally intubated Current Visit: Yes Status: Acute (4) History of hypothyroidism Current Visit: Yes Status: Chronic TSH WNL started on IV levothyroxine Subjective Principal diagnosis: Metabolic Encephalopathy Interval history: Patient continues to be sedated and intubated. When decreasing sedation patient opens her eyes spontaneously and appears very agitated, restless with movement of all her extremities. She does not respond to any simple commands. She does not track with her eyes. Overnight patient became febrile, tachycardic. Her blood pressure has been very labile. Objective - Constitutional Vitals: Temp Pulse Resp BP Pulse Ox 99.3 F 73 12 126/65 94 10/19/17 08:06 10/19/17 10:00 10/19/17 10:00 10/19/17 10:00 10/19/17 10:00 - Other Additional findings: General: Intubated, medically induced coma, restless HEENT: Head atraumatic, normocephalic, pupils reactive to light, absent lymphadenopathy, Heart: Regular rate and rhythm with no murmur Lungs: Clear to auscultation bilaterally Abdomen: Soft nondistended positive bowel sounds Skin: warm and dry Extremities: Absent pedal edema, Neuro: Unable to do neuro exam as patient is intubated and sedated. Bilateral plantar reflexes downward. hyporelfexive thorughout Vascular: Pedal and radial pulses 2 out of 4 Results - Laboratory Findings CBC and BMP: 10/19/17 08:10 10/19/17 08:10 Abnormal lab findings: Abnormal lab results RBC 3.72 M/mcL (3.82-4.97) L 10/19/17 08:10 Hgb 10.9 g/dL (11.5-15.4) L 10/19/17 08:10 Hct 33.7 % (35.3-44.9) L 10/19/17 08:10 Nucleated RBCs/100 WBC 0.2 /100 WBC (0) H 10/19/17 04:30 ABG pO2 70 mmHg (85-104) L 10/19/17 04:25 ABG O2 Saturation 94 % (95-98) L 10/19/17 04:25 Carboxyhemoglobin 5.2 % (0-5) H 10/18/17 11:34 Potassium 3.1 mEq/L (3.5-5.1) L 10/19/17 08:10 Carbon Dioxide 22 mEq/L (23-29) L 10/19/17 08:10 Calcium 7.5 mg/dL (8.6-10.3) L 10/19/17 08:10 Magnesium 1.5 mg/dL (1.6-2.6) L 10/19/17 04:30 Serum Total Protein 6.0 g/dL (6.4-8.9) L 10/19/17 04:30 Globulin 2.2 g/dL (2.4-3.5) L 10/19/17 04:30 Urine Blood Small (Negative) H 10/18/17 11:43 Urine Microscopic RBC 3-5 per hpf (0-3) H 10/18/17 11:43 Ur Squamous Epith Cells Moderate per lpf (None-Few) H 10/18/17 11:43 Consult Discharge Plan - Plan Referrals: Bladimir Dunne MD [Primary Care Provider] - <José Miguel Allen I - Last Filed: 10/19/17 15:30> Date of Encounter: 10/19/17 Assessment and Plan (1) Encephalopathy Current Visit: Yes Status: Acute Pt was seen and examined, my medical decision was reviewed with the Resident Physician, I agree with the documented findings, disposition and treatment plas as described except to the extent set forth below José Miguel Allen MD Objective - Constitutional Vitals: Temp Pulse Resp BP Pulse Ox 99.9 F H 87 12 137/64 90 10/19/17 15:00 10/19/17 15:00 10/19/17 15:00 10/19/17 15:00 10/19/17 15:00 Results - Laboratory Findings CBC and BMP: 10/19/17 14:33 10/19/17 08:10 Abnormal lab findings: Abnormal lab results Hgb 11.2 g/dL (11.5-15.4) L 10/19/17 14:33 MCHC 31.5 g/dL (31.6-35.5) L 10/19/17 14:33 Neutrophils # 9.0 K/mcL (1.6-8.9) H 10/19/17 14:33 Nucleated RBCs/100 WBC 0.2 /100 WBC (0) H 10/19/17 04:30 ABG pO2 70 mmHg (85-104) L 10/19/17 04:25 ABG O2 Saturation 94 % (95-98) L 10/19/17 04:25 Carboxyhemoglobin 5.2 % (0-5) H 10/18/17 11:34 Potassium 3.1 mEq/L (3.5-5.1) L 10/19/17 08:10 Carbon Dioxide 22 mEq/L (23-29) L 10/19/17 08:10 Calcium 7.5 mg/dL (8.6-10.3) L 10/19/17 08:10 Magnesium 1.5 mg/dL (1.6-2.6) L 10/19/17 04:30 Serum Total Protein 6.0 g/dL (6.4-8.9) L 10/19/17 04:30 Globulin 2.2 g/dL (2.4-3.5) L 10/19/17 04:30 Urine Blood Small (Negative) H 10/18/17 11:43 Urine Microscopic RBC 3-5 per hpf (0-3) H 10/18/17 11:43 Ur Squamous Epith Cells Moderate per lpf (None-Few) H 10/18/17 11:43
--- NOTE | 2017-10-19 11:32 | Electrocardiograph Report ---
[facility] Test Date: 2017-10-18 Pat Name: Margot Garvey Department: 103 Room: 06 Gender: [employer]: : [id number] Requested By: Kaiden Robertson Order Number: [id number] Reading MD: Toni Das Measurements Intervals [place] Rate: 92 P: 75 LA: 243 QRS: 5 QRSD: 85 T: 66 QT: 384 QTc: 434 Interpretive Statements SINUS RHYTHM WITH FIRST DEGREE AV BLOCK POSSIBLE LEFT ATRIAL ENLARGEMENT [-0.1mV P WAVE IN V1/V2] Electronically Signed On 10-19-2017 11:30:47 EDT by Toni Das
[2017-10-19 14:41] LABS: Basophils # 0.1 K/mcL (0.0-0.2); Basophils % 0.5 %; Eosinophils % 0.4 %; Hematocrit 35.6 % (35.3-44.9); Hemoglobin 11.2 g/dL (11.5-15.4); Immature Granulocytes % 0.3 % (0-4); Lymphocytes # 1.2 K/mcL (0.6-4.6); Lymphocytes % 10.9 %; Mean Corpuscular HGB Conc 31.5 g/dL (31.6-35.5); Mean Corpuscular Hemoglobin 28.9 pg (28.0-33.3); Mean Platelet Volume 9.6 fL (9.4-12.4); Monocytes # 0.7 K/mcL (0.0-1.3); Monocytes % 6.1 %; Platelet Count 277 K/mcL (140-400); Red Blood Count 3.87 M/mcL (3.82-4.97); Red Cell Distribution Width 13.5 % (11.5-14.5); Segmented Neutrophils % 81.8 %
[2017-10-19] MEDS: Acetaminophen 325 MG TABLET PO PRN ×2 (14:41→20:20)
[2017-10-19] MEDS ORDERED: Ringers Solution, Lactated 1,000 ML IVC ONE (15:52)
[2017-10-19] MEDS: Piperacillin/Tazobactam 3.375 GM in 0.9 % Sodium Chloride Mini Bag 100 ML IVPB SCH (15:54)
[2017-10-19 16:29] LABS: Bilirubin,Urine Negative (Negative); Blood,Urine Moderate (Negative); Clarity,Urine Clear (Clear); Color,Urine Yellow (Yellow); Glucose,Urine (UA) Normal (Normal); Ketones,Urine Negative (Negative); Leukocyte Esterase,Urine Negative (Negative); Nitrite,Urine Negative (Negative); Protein,Urine 30 mg/dL (Neg-Trace); Urobilinogen,Urine Normal (Normal)
[2017-10-19 16:30] LABS: Bacteria,Urine None Seen per hpf (None-Few); Hyaline Casts,Urine None Seen per lpf (None-Few); RBC,Urine 15-30 per hpf (0-3); Squamous Epithelial Cell,Urine Moderate per lpf (None-Few); WBC,Urine 0-3 per hpf (0-3)
[2017-10-19] MEDS: Dexmedetomidine HCl 400 MCG/100 ML MLS IVC SCH (20:17)
[2017-10-20] MEDS: Piperacillin/Tazobactam 3.375 GM in 0.9 % Sodium Chloride Mini Bag 100 ML IVPB SCH ×4 (02:48→23:31)
[2017-10-20] MEDS: Lacri-Lube 3.5 GM TUBE BOTH EYES SCH ×7 (02:58→23:30)
[2017-10-20 04:52] LABS: ABG Base Excess -2 mEq/L (-2 to 3); ABG HCO3 23 mEq/L (21-27); ABG Oxygen Saturation 93 % (95-98); ABG PCO2 37 mmHg (35-45); ABG PH 7.39 pH Units (7.32-7.45); ABG PO2 68 mmHg (85-104); ABG TCO2 24 mEq/L (20-26); Blood Gas Modality VC; Blood Gas PEEP 5 cm H2O; Blood Gas Respiration Rate 12; Blood Gas VT 450 cc
[2017-10-20] MEDS: FentaNYL (PF) 1,000 MCG in 0.9 % Sodium Chloride 80 ML IVC SCH ×2 (05:15→20:23)
[2017-10-20] MEDS ORDERED: Acetaminophen 325 MG TABLET PO ONE (06:06)
[2017-10-20 06:43] LABS: Basophils # 0.1 K/mcL (0.0-0.2); Basophils % 0.6 %; Eosinophils # 0.1 K/mcL (0.0-0.6); Eosinophils % 1.3 %; Immature Granulocytes % 0.5 % (0-4); Lymphocytes # 1.1 K/mcL (0.6-4.6); Lymphocytes % 12.6 %; Mean Corpuscular HGB Conc 32.5 g/dL (31.6-35.5); Mean Corpuscular Volume 89.2 fL (83.0-100.0); Mean Platelet Volume 9.8 fL (9.4-12.4); Monocytes # 0.5 K/mcL (0.0-1.3); Monocytes % 6.3 %; Neutrophils # 6.6 K/mcL (1.6-8.9); Platelet Count 228 K/mcL (140-400); Red Blood Count 3.14 M/mcL (3.82-4.97); Red Cell Distribution Width 13.5 % (11.5-14.5); Segmented Neutrophils % 78.7 %
[2017-10-20 06:44] LABS: Hemoglobin 9.1 g/dL (11.5-15.4)
[2017-10-20 07:30] LABS: BUN/Creatinine Ratio 18 (6-26); Blood Urea Nitrogen 13 mg/dL (8-23); Calcium 7.6 mg/dL (8.6-10.3); Carbon Dioxide 19 mEq/L (23-29); Chloride 110 mEq/L (98-107); Glucose 84 mg/dL (70-105); Osmolality,Calculated 281 (280-300); Potassium 3.6 mEq/L (3.5-5.1); Sodium 136 mEq/L (136-145); eGFR For African Americans > 60 (> 60); eGFR For Non-African Americans > 60 (> 60)
--- NOTE | 2017-10-20 08:28 | Pulmonology Progress Note ---
<AlexiaJadon W - Last Filed: 10/20/17 10:14> Date of Encounter: 10/20/17 Objective PUL Vital signs: Last Vital Signs Temp 99.6 F 10/20/17 08:00 Pulse 93 10/20/17 08:30 Resp 12 10/20/17 09:05 BP 137/76 10/20/17 08:30 Pulse Ox 96 10/20/17 09:05 Ventilator Settings Ventilator Settings: Ventilator Settings, Last 8 Hours Ventilator Mode VC+ Ventilator Mode A/C Ventilator Mode VC+ Ventilator Mode VC+ Ventilator Mode VC+ Ventilator Mode VC+ Ventilator Mode VC+ Ventilator Mode VC+ Ventilator Mode VC+ Ventilator Mode VC+ Ventilator Mode VC+ Ventilator Tidal Volume 450 Setting Ventilator Tidal Volume 450 Setting Ventilator Tidal Volume 450 Setting Ventilator Tidal Volume 450 Setting Ventilator Tidal Volume 450 Setting Ventilator Tidal Volume 450 Setting Ventilator Tidal Volume 450 Setting Ventilator Tidal Volume 450 Setting Ventilator Tidal Volume 450 Setting Ventilator Tidal Volume 450 Setting Ventilator Tidal Volume 450 Setting Ventilator Tidal Volume 450 Setting Ventilator Respiratory Rate 12 Setting Ventilator Respiratory Rate 12 Setting Ventilator Respiratory Rate 12 Setting Ventilator Respiratory Rate 12 Setting Ventilator Respiratory Rate 12 Setting Ventilator Respiratory Rate 12 Setting Ventilator Respiratory Rate 12 Setting Ventilator Respiratory Rate 12 Setting Ventilator Respiratory Rate 12 Setting Ventilator Respiratory Rate 12 Setting Ventilator Respiratory Rate 12 Setting Ventilator Respiratory Rate 12 Setting Actual Respiratory Rate 12 Actual Respiratory Rate 12 Actual Respiratory Rate 16 Actual Respiratory Rate 12 Actual Respiratory Rate 12 Actual Respiratory Rate 12 Actual Respiratory Rate 12 Actual Respiratory Rate 12 Actual Respiratory Rate 12 Actual Respiratory Rate 12 Actual Respiratory Rate 12 Positive End Expiratory 5 Pressure Positive End Expiratory 5 Pressure Positive End Expiratory 5 Pressure Positive End Expiratory 5 Pressure Positive End Expiratory 5 Pressure Positive End Expiratory 5 Pressure Positive End Expiratory 5 Pressure Positive End Expiratory 5 Pressure Positive End Expiratory 5 Pressure Positive End Expiratory 5 Pressure Positive End Expiratory 5 Pressure Positive End Expiratory 5 Pressure Peak Inspiratory Airway 18 Pressure Peak Inspiratory Airway 19 Pressure Peak Inspiratory Airway 30 Pressure Peak Inspiratory Airway 20 Pressure Peak Inspiratory Airway 19 Pressure Peak Inspiratory Airway 19 Pressure Peak Inspiratory Airway 12 Pressure Peak Inspiratory Airway 17 Pressure Peak Inspiratory Airway 12 Pressure Peak Inspiratory Airway 16 Pressure Results - Laboratory Findings CBC and BMP: 10/20/17 06:25 10/20/17 06:25 ABG ABG pH 7.39 pH Units (7.32-7.45) 10/20/17 04:46 ABG pCO2 37 mmHg (35-45) 10/20/17 04:46 ABG pO2 68 mmHg (85-104) L 10/20/17 04:46 ABG O2 Saturation 93 % (95-98) L 10/20/17 04:46 PT/INR, D-dimer PT 11.4 Seconds (9.4-12.1) 10/18/17 11:34 Abnormal lab findings: Abnormal lab results RBC 3.14 M/mcL (3.82-4.97) L 10/20/17 06:25 Hgb 9.1 g/dL (11.5-15.4) L D 10/20/17 06:25 Hct 28.0 % (35.3-44.9) L 10/20/17 06:25 Nucleated RBCs/100 WBC 0.2 /100 WBC (0) H 10/19/17 04:30 ABG pO2 68 mmHg (85-104) L 10/20/17 04:46 ABG O2 Saturation 93 % (95-98) L 10/20/17 04:46 Carboxyhemoglobin 5.2 % (0-5) H 10/18/17 11:34 Chloride 110 mEq/L (98-107) H 10/20/17 06:25 Carbon Dioxide 19 mEq/L (23-29) L 10/20/17 06:25 Calcium 7.6 mg/dL (8.6-10.3) L 10/20/17 06:25 Magnesium 1.5 mg/dL (1.6-2.6) L 10/19/17 04:30 Serum Total Protein 6.0 g/dL (6.4-8.9) L 10/19/17 04:30 Globulin 2.2 g/dL (2.4-3.5) L 10/19/17 04:30 Urine Protein 30 mg/dL (Neg-Trace) H 10/19/17 16:20 Urine Blood Moderate (Negative) H 10/19/17 16:20 Urine Microscopic RBC 15-30 per hpf (0-3) H 10/19/17 16:20 Ur Squamous Epith Cells Moderate per lpf (None-Few) H 10/19/17 16:20 - Clinical Findings Intake & Output: Intake & Output 10/19/17 10/20/17 10/20/17 23:59 07:59 15:59 Intake Total 1622 / 1622 195 / 195 Output Total 600 / 600 200 / 200 75 / 75 Balance 1022 / 1022 -5 / -5 -75 / -75 Weight 66.6 kg Consult Discharge Plan - Plan Referrals: Bladimir Dunne MD [Primary Care Provider] - - Attending Attestation I examined this patient and my medical decision-making was reviewed with the Resident Physician. I agree with the documented findings, disposition and treatment plan as described except to the extent set forth below. We independently had [id number] contact with the patient Patient seen and examined at bedside Labs, radiology, chart personally reviewed. Management was reviewed during multidisciplinary critical care rounds. PROFILE [employer] TAPE CONTROL: Remains densely encephalopathic with lateral gaze deviated stat EEG pending Neuro updated. OVerall cause remains unclear CVA but unlikely given size HTN possible mediated by serotonergic agents which are on hold but still having mild pyrexia. D/w Neuro will likely need transfer to tertiary referral center. Cont asa and statin Pulm: ?Aspiration PNA on zosyn cultures pending. Cards: BP controlled now admitted with HTN emergency FEN-GI: NPO for now GI prophylaxis given Renal: UOP monitored as is electrolytes ID: Treating for aspiration PNA Heme/Onc: DVT prophylaxis given Endo: Glucose Monitored Integ/MSK: Skin Care per routine ICU Nursing Protocol to prevent ulcers. Lines: All lines examined without evidence of infection : Dispo: Transfer to referral center CODE: Full Family ( Wes ) updated at bedside. and in agreement with plan <Enmanuel Maria - Last Filed: 10/20/17 18:09> Date of Encounter: 10/20/17 Time of Encounter: 08:30 Assessment and Plan (1) Encephalopathy Current Visit: Yes Status: Acute Encephalopathy of unknown origin, likely metabolic Most likely secondary to hypertensive emergency/PRES vs possible infectious etiology No obvious electrolyte disturbance or source of infection, UDS Negative Lumbar puncture was performed with CSF analysis that is grossly normal with cell differential pending Head CT is negative for acute process MRI shows two two tiny foci of acute ischemia within the right temporal lobe Patient is intubated and mildly sedated, continue fentanyl as needed EEG shows: "Prominent beta activity in the anterior regions could be secondary to medication effect. NO evidence of any generalized convulsive activity" Likely extubate later in the evening or in the morning Neurology has been consulted Plan -Consider infectious source, CXR shows "possible bibasilar pna" which is uncertain, I will check procalcitonin -Started patient on IV Zosyn -Continue sedation vacation -Patient initially did not respond to commands throughout the day, and the plan was to transfer her to [facility] for further workup however, she seemed to improve throughout the day and she is now following commands appropriately. I spoke with the patient's to agrees that the patient should stay at [place] at this time. We will continue to monitor her overnight and likely extubate in the morning. -Suspect that this may be a response to either decreased blood pressure or cessation of medication (2) Hypertensive emergency Current Visit: Yes Status: Acute Hypertensive emergency, SBP >210 on arrival Patient has neurological symptoms including encephalopathy, likely secondary to HTN I spoke with the patient's PCP, Dr. Dunne, who states that the patient has not had history of HTN to his knowledge The patient is on PRN clonidine for anxiety. BP has been normal in previous office visits Patient's does say she abruptly stopped Clonidine several days ago, however he does not know why This may present a source of hypertension, if there is a rebound Renal doppler ultrasound is pending We will continue to drop the blood pressure (3) Endotracheally intubated Current Visit: Yes Status: Acute Patient is intubated with light sedation due to combative behavior Her mental status seems to be improving rapidly and she no longer appears combative Likely to be extubated today or tomorrow (4) History of hypothyroidism Current Visit: Yes Status: Chronic Hypothyroidism on levothyroxine TSH is stable on this admission We will continue levothyroxine IV at decreased dose (5) DVT prophylaxis Current Visit: Yes Status: Acute We will start the patient on subcutaneous heparin Subjective Principal diagnosis: Metabolic Encephalopathy Interval history: The patient is lying in bed at time of examination. This morning the patient was off sedation however she did not seem to respond appropriately to stimuli or commands. Throughout the day the patient was planned for transfer to [facility] for further workup, however she began to respond appropriately. She later seemed to respond completely appropriately to commands and it was determined that she was not in need of transfer to [facility]. Objective PUL Vital signs: Last Vital Signs Temp 100.5 F H 10/20/17 04:46 Pulse 78 10/20/17 07:30 Resp 16 10/20/17 07:30 BP 147/67 10/20/17 07:30 Pulse Ox 96 10/20/17 07:30 Gen: Vitals noted. No acute distress. Became alert throughout the day HEENT: PERRL but pinpoint, somewhat leftward gaze. Normocephalic, atraumatic Neck: Supple. No adenopathy. Cardiac: RRR, no murmur, +S1/S2 Pulmonary: CTA bilaterally, no wheezes, rales or rhonchi, equal chest expansion Abdomen: soft, nontender, BS noted, no guarding MSK: ROM intact, no joint swelling noted Extremities: no BLE edema, nontender calf, no cyanosis or clubbing Neuro: Initially (829) Patient is off sedation with ET tube in place, however she is agitated and moving quiet a lot. DTRs appear intact 2/4 in biceps, brachioradialis, patellar, and achilles b/l however difficult to assess due to substantial movement. There is no noted hyperonicity or increased startle response. Babinski is negative b/l Update (1803) the patient is reevaluated at bedside pending transfer to [facility] at which time she appears alert and able to respond to commands. She will squeeze hands bilaterally appropriately when asked to do so, and she seems to track with her eyes. Her pupils remain pinpoint likely secondary to fentanyl drip, however she seems to move all 4 extremities on command. Ventilator Settings Ventilator Settings: Ventilator Settings, Last 8 Hours Ventilator Mode A/C Ventilator Mode VC+ Ventilator Mode VC+ Ventilator Mode VC+ Ventilator Mode VC+ Ventilator Mode VC+ Ventilator Mode VC+ Ventilator Mode VC+ Ventilator Mode VC+ Ventilator Mode VC+ Ventilator Mode VC+ Ventilator Mode VC+ Ventilator Tidal Volume 450 Setting Ventilator Tidal Volume 450 Setting Ventilator Tidal Volume 450 Setting Ventilator Tidal Volume 450 Setting Ventilator Tidal Volume 450 Setting Ventilator Tidal Volume 450 Setting Ventilator Tidal Volume 450 Setting Ventilator Tidal Volume 450 Setting Ventilator Tidal Volume 450 Setting Ventilator Tidal Volume 450 Setting Ventilator Tidal Volume 450 Setting Ventilator Tidal Volume 450 Setting Ventilator Respiratory Rate 12 Setting Ventilator Respiratory Rate 12 Setting Ventilator Respiratory Rate 12 Setting Ventilator Respiratory Rate 12 Setting Ventilator Respiratory Rate 12 Setting Ventilator Respiratory Rate 12 Setting Ventilator Respiratory Rate 12 Setting Ventilator Respiratory Rate 12 Setting Ventilator Respiratory Rate 12 Setting Ventilator Respiratory Rate 12 Setting Ventilator Respiratory Rate 12 Setting Ventilator Respiratory Rate 12 Setting Actual Respiratory Rate 16 Actual Respiratory Rate 12 Actual Respiratory Rate 12 Actual Respiratory Rate 12 Actual Respiratory Rate 12 Actual Respiratory Rate 12 Actual Respiratory Rate 12 Actual Respiratory Rate 12 Actual Respiratory Rate 12 Actual Respiratory Rate 12 Actual Respiratory Rate 12 Positive End Expiratory 5 Pressure Positive End Expiratory 5 Pressure Positive End Expiratory 5 Pressure Positive End Expiratory 5 Pressure Positive End Expiratory 5 Pressure Positive End Expiratory 5 Pressure Positive End Expiratory 5 Pressure Positive End Expiratory 5 Pressure Positive End Expiratory 5 Pressure Positive End Expiratory 5 Pressure Positive End Expiratory 5 Pressure Positive End Expiratory 5 Pressure Peak Inspiratory Airway 30 Pressure Peak Inspiratory Airway 20 Pressure Peak Inspiratory Airway 19 Pressure Peak Inspiratory Airway 19 Pressure Peak Inspiratory Airway 12 Pressure Peak Inspiratory Airway 17 Pressure Peak Inspiratory Airway 12 Pressure Peak Inspiratory Airway 16 Pressure Peak Inspiratory Airway 21 Pressure Peak Inspiratory Airway 12 Pressure Results - Laboratory Findings CBC and BMP: 10/20/17 06:25 10/20/17 06:25 ABG ABG pH 7.39 pH Units (7.32-7.45) 10/20/17 04:46 ABG pCO2 37 mmHg (35-45) 10/20/17 04:46 ABG pO2 68 mmHg (85-104) L 10/20/17 04:46 ABG O2 Saturation 93 % (95-98) L 10/20/17 04:46 PT/INR, D-dimer PT 11.4 Seconds (9.4-12.1) 10/18/17 11:34 Abnormal lab findings: Abnormal lab results RBC 3.14 M/mcL (3.82-4.97) L 10/20/17 06:25 Hgb 9.1 g/dL (11.5-15.4) L D 10/20/17 06:25 Hct 28.0 % (35.3-44.9) L 10/20/17 06:25 Nucleated RBCs/100 WBC 0.2 /100 WBC (0) H 10/19/17 04:30 ABG pO2 68 mmHg (85-104) L 10/20/17 04:46 ABG O2 Saturation 93 % (95-98) L 10/20/17 04:46 Carboxyhemoglobin 5.2 % (0-5) H 10/18/17 11:34 Chloride 110 mEq/L (98-107) H 10/20/17 06:25 Carbon Dioxide 19 mEq/L (23-29) L 10/20/17 06:25 Calcium 7.6 mg/dL (8.6-10.3) L 10/20/17 06:25 Magnesium 1.5 mg/dL (1.6-2.6) L 10/19/17 04:30 Serum Total Protein 6.0 g/dL (6.4-8.9) L 10/19/17 04:30 Globulin 2.2 g/dL (2.4-3.5) L 10/19/17 04:30 Urine Protein 30 mg/dL (Neg-Trace) H 10/19/17 16:20 Urine Blood Moderate (Negative) H 10/19/17 16:20 Urine Microscopic RBC 15-30 per hpf (0-3) H 10/19/17 16:20 Ur Squamous Epith Cells Moderate per lpf (None-Few) H 10/19/17 16:20 - Clinical Findings Intake & Output: Intake & Output 10/19/17 10/20/17 10/20/17 23:59 07:59 15:59 Intake Total 1622 / 1622 95 / 95 Output Total 600 / 600 200 / 200 Balance 1022 / 1022 -105 / -105 Weight 66.6 kg
[2017-10-20] MEDS: Aspirin 325 MG TABLET GTUBE SCH (08:35)
[2017-10-20] MEDS: Levothyroxine Sodium 100 MCG VIAL IVP SCH (08:36)
[2017-10-20] MEDS: Chlorhexidine Rinse 15 ML MOUTHWASH MM SCH ×2 (08:37→20:22)
[2017-10-20] MEDS ORDERED: *HR* Dextrose 50 % in Water (Syg) 50 ML SYRINGE IVP PRN (11:51)
--- NOTE | 2017-10-20 11:52 | Discharge Summary ---
Orders not resulted at time of discharge: Pending orders 10/19/17 14:33 Culture,Blood [BC] Stat Culture,Blood,Additional [BC] Stat 10/19/17 17:51 Procalcitonin Routine 10/20/17 08:19 Magnesium Routine 10/21/17 08:00 Basic Metabolic Panel DAILY Date of Encounter: 10/20/17 Time of Encounter: 09:40 - Discharge Diagnosis (1) Encephalopathy Priority: Primary Status: Acute (2) Hypertensive emergency Priority: Secondary Status: Acute (3) Endotracheally intubated Priority: Secondary Status: Acute (4) History of hypothyroidism Priority: Secondary Status: Chronic - Discharge Medications Home Medications: Baclofen [Lioresal] 10 mg PO TID 10/18/17 [History] Estrogens, Conjugated [Premarin Cream] 1 appl VG MO 10/18/17 [History] Ibuprofen 800 mg PO BID PRN 10/18/17 [History] Levothyroxine Sodium [Levoxyl] 75 mcg PO DAILY 10/18/17 [History] Mirtazapine [Remeron] 15 mg PO HS 10/18/17 [History] Olopatadine HCl [Pataday] 1 drop BOTH EYES BID 10/18/17 [History] Omeprazole [PriLOSEC] 40 mg PO DAILY 10/18/17 [History] PARoxetine HCl [Paroxetine HCl] 10 mg PO DAILY 10/18/17 [History] Pravastatin Sodium [Pravachol] 20 mg PO QPM 10/18/17 [History] Trazodone HCl 100 mg PO HS 10/18/17 [History] cloNIDine HCl [CloNIDine HCl] 0.1 mg PO DAILY 10/18/17 [History] Acetaminophen [Tylenol] 500 mg PO Q6HR 10/20/17 [History] Cholecalciferol (Vitamin D3) [Vitamin D] 1,000 unit PO 1-2XD 10/20/17 [History] Allergies/Adverse Reactions: 3 Allergy/AdvReac Type Severity Reaction Status Date / Time No Known Allergies Allergy Verified 09/13/16 06:19 Labs on day of discharge: Labs from last 24 hours 10/20/17 10/20/17 10/20/17 06:25 06:25 04:46 WBC 8.4 RBC 3.14 L Hgb 9.1 L D Hct 28.0 L MCV 89.2 MCH 29.0 MCHC 32.5 RDW 13.5 Plt Count 228 MPV 9.8 Immature Gran % 0.5 Seg Neutrophils % 78.7 Lymphocytes % 12.6 Monocytes % 6.3 Eosinophils % 1.3 Basophils % 0.6 Neutrophils # 6.6 Lymphocytes # 1.1 Monocytes # 0.5 Eosinophils # 0.1 Basophils # 0.1 Sample Site L Radial ABG pH 7.39 ABG pCO2 37 ABG pO2 68 L ABG HCO3 23 ABG Total CO2 24 ABG O2 Saturation 93 L ABG Base Excess -2 Dennis Test N/A Respiration Rate 12 O2 Delivery Device Adult Vent Blood Gas Modality VC Inspired O2 30.0 Tidal Volume 450 PEEP 5 Sodium 136 Potassium 3.6 Chloride 110 H Carbon Dioxide 19 L BUN 13 Creatinine 0.71 Est GFR ( Amer) > 60 Est GFR (Non-Af Amer) > 60 BUN/Creatinine Ratio 18 Glucose 84 POC Glucose Calculated Osmolality 281 Lactic Acid Calcium 7.6 L Urine Color Urine Clarity Urine pH Ur Specific Hamlet Urine Protein Urine Glucose (UA) Urine Ketones Urine Blood Urine Nitrite Urine Bilirubin Urine Urobilinogen Ur Leukocyte Esterase Urine Microscopic RBC Urine Microscopic WBC Ur Squamous Epith Cells Urine Bacteria Hyaline Casts Ur Culture Indicated? 10/19/17 10/19/17 10/19/17 23:32 17:51 16:20 WBC RBC Hgb Hct MCV MCH MCHC RDW Plt Count MPV Immature Gran % Seg Neutrophils % Lymphocytes % Monocytes % Eosinophils % Basophils % Neutrophils # Lymphocytes # Monocytes # Eosinophils # Basophils # Sample Site ABG pH ABG pCO2 ABG pO2 ABG HCO3 ABG Total CO2 ABG O2 Saturation ABG Base Excess Dennis Test Respiration Rate O2 Delivery Device Blood Gas Modality Inspired O2 Tidal Volume PEEP Sodium Potassium Chloride Carbon Dioxide BUN Creatinine Est GFR ( Amer) Est GFR (Non-Af Amer) BUN/Creatinine Ratio Glucose POC Glucose 85 Calculated Osmolality Lactic Acid 1.0 Calcium Urine Color Yellow Urine Clarity Clear Urine pH 7.0 Ur Specific Hamlet 1.020 Urine Protein 30 H Urine Glucose (UA) Normal Urine Ketones Negative Urine Blood Moderate H Urine Nitrite Negative Urine Bilirubin Negative Urine Urobilinogen Normal Ur Leukocyte Esterase Negative Urine Microscopic RBC 15-30 H Urine Microscopic WBC 0-3 Ur Squamous Epith Cells Moderate H Urine Bacteria None Seen Hyaline Casts None Seen Ur Culture Indicated? NO 10/19/17 14:33 WBC 11.0 RBC 3.87 Hgb 11.2 L Hct 35.6 MCV 92.0 MCH 28.9 MCHC 31.5 L RDW 13.5 Plt Count 277 MPV 9.6 Immature Gran % 0.3 Seg Neutrophils % 81.8 Lymphocytes % 10.9 Monocytes % 6.1 Eosinophils % 0.4 Basophils % 0.5 Neutrophils # 9.0 H Lymphocytes # 1.2 Monocytes # 0.7 Eosinophils # 0.0 Basophils # 0.1 Sample Site ABG pH ABG pCO2 ABG pO2 ABG HCO3 ABG Total CO2 ABG O2 Saturation ABG Base Excess Dennis Test Respiration Rate O2 Delivery Device Blood Gas Modality Inspired O2 Tidal Volume PEEP Sodium Potassium Chloride Carbon Dioxide BUN Creatinine Est GFR ( Amer) Est GFR (Non-Af Amer) BUN/Creatinine Ratio Glucose POC Glucose Calculated Osmolality Lactic Acid Calcium Urine Color Urine Clarity Urine pH Ur Specific Hamlet Urine Protein Urine Glucose (UA) Urine Ketones Urine Blood Urine Nitrite Urine Bilirubin Urine Urobilinogen Ur Leukocyte Esterase Urine Microscopic RBC Urine Microscopic WBC Ur Squamous Epith Cells Urine Bacteria Hyaline Casts Ur Culture Indicated? - Impressions ITS Impressions KUB X-Ray 10/18/17 17:22 IMPRESSION: Enteric tube terminating in the distal body of the stomach. D/ / Anatoliy Good MD / Anatoliy Good MD Interpreting Provider: Anatoliy Good MD Brain MRI 10/19/17 11:56 IMPRESSION: Two tiny foci of acute ischemia within the right temporal lobe. Mild chronic microvascular disease within the periventricular white matter. Old right thalamic and right basal ganglionic lacune. D/ / 10/19/2017 12:28:46 Rafa Weller MD / tolu Interpreting Provider: Rafa Weller MD Chest X-Ray 10/19/17 16:25 IMPRESSION: Possible bilateral lower lobe pneumonia Endotracheal tube in satisfactory position D/ / Enmanuel Haddad MD / Enmanuel Haddad MD Interpreting Provider: Enmanuel Haddad MD Date of admission: 10/18/17 13:30 Primary care physician: Bladimir Dunne MD Consults: 10/18/17 15:12 Consult to Neurology [CONS] Routine Consulting Provider: Ivel[facility] Reason for Consult: Metabolic encephalopathy Time Notified: 15:13 Call Completed: Yes Discharging clinician: Jadon Hale Anticipated date of discharge: 10/20/17 - Patient Status Disposition: Transfer Critical Access Hosp Condition: Fair Overall status at discharge: patient is not back to baseline - Discharge Instructions Follow Up With: Bladimir Dunne MD [Primary Care Provider] - - Diet and Activity Activity: as per physical therapy Diet: other (NPO) - Hospital Course Hospital course: Ms. Garvey is a 77 year old female with uncertain history of hypertension and anxiety who presented to the ED on 10/18 with altered mental status that started that morning. The patient was apparently normal prior to arrival, and began to be confused at around 8:30am while out shopping with her which became progressively worse. EMS was called by the , and upon arrival to the ED, the patient was found to be extremely disoriented, nonverbal, did not follow commands and was combative. At that time she was unable to follow commands, and she needed to be physically restrained and sedated in order to determine workup. She was found to have exceptionally high blood pressure with systolic blood pressure greater than 220. The patient was intubated and placed on a ventilator with sedation, and had a CT of the head which was negative. No focal neurological deficits were found at that time. According the patient's , the patient did take clonidine 0.1 mg as needed for what he believed to be hypertension, however according to primary care provider the patient was on this due to anxiety. According to the , the patient stopped taking this medication several days ago. He says that the patient has had hypertension for the past 2 years prior to that should never had issues with this. He affirms that the patient had no signs or symptoms of infection prior to arrival. He says that she has not had any cough, fever, chills, disorientation at home. He also says that she is reported no GI or complaints. She was admitted to the ICU with sedation and the goal to decrease blood pressure by 25% each day. The patient received blood cultures which did not grow any organism, received an LP which was grossly normal, tox screen which was negative, and liver studies did not show any gross abnormalities. The patient also had a TSH which was 2.39 which is in normal range. UA was clean. 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 We also decided to ultrasound the renal arteries in order to determine whether renal artery stenosis was present. The patient remained sedated, however she did have extremely labile blood pressure while in the ICU. MRI was unable to be completed due to use of drip sedation. On her second day of admission, the patient did tolerate reduction of the drip to allow for an MRI which showed 2 tiny foci of infarcts in the left temporal lobe which, according to neurology as not consistent with her symptoms at this time. Other causes such as serotonergic syndrome was considered given her home medications, however one stopped she did not seem to improve significantly. Upon discussion with neurology, we feel at this time that the patient would be better served by transfer to tertiary care center for specialized workup. We have spoken to the family was agreeable with this plan. - Time Spent with Patient Total time spent providing and/or coordinating discharge services: Greater than 30 minutes Physical Examination Vital Signs: Vital Signs, Last 4 Hours Temp Pulse Resp BP Pulse Ox 10/20/17 11:30 75 15 125/58 97 10/20/17 10:30 90 16 155/69 95 10/20/17 09:30 75 12 114/54 94 10/20/17 09:05 12 96 10/20/17 08:30 93 12 137/76 95 10/20/17 08:00 99.6 F Gen: Vitals noted. No acute distress. HEENT: PERRL but pinpoint, somewhat leftward gaze. Normocephalic, atraumatic Neck: Supple. No adenopathy. Cardiac: RRR, no murmur, +S1/S2 Pulmonary: CTA bilaterally, no wheezes, rales or rhonchi, equal chest expansion Abdomen: soft, nontender, BS noted, no guarding MSK: ROM intact, no joint swelling noted Extremities: no BLE edema, nontender calf, no cyanosis or clubbing Neuro: Patient is off sedation with ET tube in place, however she is agitated and moving quiet a lot. DTRs appear intact 2/4 in biceps, brachioradialis, patellar, and achilles b/l however difficult to assess due to substantial movement. There is no noted hyperonicity or increased startle response. Babinski is negative b/l
--- NOTE | 2017-10-20 13:41 | EEG/EMG/Oth Biometrics Report ---
EEG Procedure Report Date of procedure: 10/20/17 EEG Procedure: Routine EEG Procedure Note: Brief history : patient with unresponsiveness intubated on sedation because of agitation STAT e 21-channel digital EEG was obtained to rule out any seizure activity or focal abnormalities. FINDINGS: Background rhythm during awake stage shows poorly organized, low voltage fast beta activity in the anterior regions. No [id number] discharges or any lateralizing abnormalities are seen. Almost constant EMG artifacts and tremor artifacts are noted making the study suboptimal. Photic stimulation did not produce any abnormalities. Stage II sleep was not observed. The patient was noted by the voice intercept technician to be restless and moving all the time during the study and having tremors of the mouth and arms. After increasing the sedation movement stopped, Stage II sleep was not achieved. IMPRESSION: Suboptimal study, no clear paroxysmal activities or epileptiform discharges were seen. Prominent beta activity in the anterior regions could be secondary to medication effect. NO evidence of any generalized convulsive activity.
--- NOTE | 2017-10-20 13:44 | Neurology Progress Note ---
Date of Encounter: 10/20/17 Time of Encounter: 07:35 Assessment and Plan (1) Encephalopathy Current Visit: Yes Status: Acute patient who is been admitted with mental status changes and elevated blood pressure, continued to be unresponsive so far no sign of any [employer] infection in particularly CSF is been negative. No MRI of the brain did shows evidence of lacunar infarct in the right hemisphere but that does not explain her clinical presentation is likely related to her elevated blood pressure. MRI of the brain did not show any evidence of posterior encephalopathy PRESS. At the same time no other source of infection has been identified she is spiking a temperature without any obvious source Patient did been on multiple medications including tricyclics is a constant perhaps it could be related to the medication side effect but again that a possibility but should not be causing this presentation There was a concern off neuroleptic malignant / that her tone is syndrome earlier but she does not have typical features and presentation. Earlier attempt to do EEG was unsuccessful we will try to get a stat EEG now to make sure that patient is not in nonconvulsive status Also discussed with the primary team about possibility of getting a second opinion at a tertiary care center due to the fact that he not been able to have exact diagnosis and no change in overall status and patient condition Subjective Principal diagnosis: Metabolic Encephalopathy Interval history: PT remain unresponsive and intubated, this morning sedation was decreased noted to be very agitated moving all 4 extremities that is still not responding to any verbal stimuli somewhat localization to painful stimuli but no purposeful movement No significant change in overall condition when she is off sedation Objective - Constitutional Vitals: Temp Pulse Resp BP Pulse Ox 99.6 F 75 15 125/58 97 10/20/17 08:00 10/20/17 11:30 10/20/17 11:30 10/20/17 11:30 10/20/17 11:30 - Neurological Exam Sensorimotor examination: Present: other (limited neurological examination secondary to sedation. Pupils are equal and reactive she did have some left gaze preference today as compared to yesterday no facial asymmetry. Moving all 4 extremities equally while off sedation otherwise some withdrawal to the deep pain reflexes are symmetrical and downgoing toes bilaterally) Cranial nerve examination: Present: PERRL, EOMI Results - Laboratory Findings CBC and BMP: 10/20/17 06:25 10/20/17 06:25 Abnormal lab findings: Abnormal lab results RBC 3.14 M/mcL (3.82-4.97) L 10/20/17 06:25 Hgb 9.1 g/dL (11.5-15.4) L D 10/20/17 06:25 Hct 28.0 % (35.3-44.9) L 10/20/17 06:25 Nucleated RBCs/100 WBC 0.2 /100 WBC (0) H 10/19/17 04:30 ABG pO2 68 mmHg (85-104) L 10/20/17 04:46 ABG O2 Saturation 93 % (95-98) L 10/20/17 04:46 Carboxyhemoglobin 5.2 % (0-5) H 10/18/17 11:34 Chloride 110 mEq/L (98-107) H 10/20/17 06:25 Carbon Dioxide 19 mEq/L (23-29) L 10/20/17 06:25 Calcium 7.6 mg/dL (8.6-10.3) L 10/20/17 06:25 Magnesium 1.5 mg/dL (1.6-2.6) L 10/19/17 04:30 Serum Total Protein 6.0 g/dL (6.4-8.9) L 10/19/17 04:30 Globulin 2.2 g/dL (2.4-3.5) L 10/19/17 04:30 Urine Protein 30 mg/dL (Neg-Trace) H 10/19/17 16:20 Urine Blood Moderate (Negative) H 10/19/17 16:20 Urine Microscopic RBC 15-30 per hpf (0-3) H 10/19/17 16:20 Ur Squamous Epith Cells Moderate per lpf (None-Few) H 10/19/17 16:20 - Diagnostic Findings Additional findings: MRI of the brain showedwo tiny foci of acute ischemia within the right temporal lobe. Mild chronic microvascular disease within the periventricular white matter. Old right thalamic and right basal ganglionic lacune. Consult Discharge Plan - Plan Referrals: Bladimir Dunne MD [Primary Care Provider] -
[2017-10-20 14:40] LABS: Magnesium 1.8 mg/dL (1.6-2.6)
[2017-10-20] MEDS: Dexmedetomidine HCl 400 MCG/100 ML MLS IVC SCH ×2 (19:25→20:53)
[2017-10-21] MEDS: Lacri-Lube 3.5 GM TUBE BOTH EYES SCH ×2 (03:20→07:43)
[2017-10-21 04:06] LABS: Basophils # 0.1 K/mcL (0.0-0.2); Basophils % 0.7 %; Eosinophils # 0.1 K/mcL (0.0-0.6); Eosinophils % 1.7 %; Hematocrit 28.6 % (35.3-44.9); Hemoglobin 9.2 g/dL (11.5-15.4); Immature Granulocytes % 0.3 % (0-4); Lymphocytes # 0.8 K/mcL (0.6-4.6); Lymphocytes % 11.7 %; Mean Corpuscular HGB Conc 32.2 g/dL (31.6-35.5); Mean Corpuscular Hemoglobin 28.4 pg (28.0-33.3); Mean Corpuscular Volume 88.3 fL (83.0-100.0); Monocytes # 0.4 K/mcL (0.0-1.3); Neutrophils # 5.7 K/mcL (1.6-8.9); Platelet Count 250 K/mcL (140-400); Red Blood Count 3.24 M/mcL (3.82-4.97); Red Cell Distribution Width 13.3 % (11.5-14.5); Segmented Neutrophils % 79.6 %
[2017-10-21 04:10] LABS: BUN/Creatinine Ratio 27 (6-26); Blood Urea Nitrogen 16 mg/dL (8-23); Calcium 8.1 mg/dL (8.6-10.3); Carbon Dioxide 17 mEq/L (23-29); Chloride 112 mEq/L (98-107); Glucose 85 mg/dL (70-105); Osmolality,Calculated 288 (280-300); Potassium 3.5 mEq/L (3.5-5.1); Sodium 139 mEq/L (136-145); eGFR For African Americans > 60 (> 60); eGFR For Non-African Americans > 60 (> 60)
[2017-10-21 04:51] LABS: ABG Base Excess -5 mEq/L (-2 to 3); ABG HCO3 20 mEq/L (21-27); ABG Oxygen Saturation 98 % (95-98); ABG PCO2 33 mmHg (35-45); ABG PH 7.38 pH Units (7.32-7.45); ABG PO2 113 mmHg (85-104); ABG TCO2 21 mEq/L (20-26); Blood Gas Modality VC; Blood Gas PEEP 5 cm H2O
[2017-10-21] MEDS: FentaNYL (PF) 1,000 MCG in 0.9 % Sodium Chloride 80 ML IVC SCH (05:09)
[2017-10-21] MEDS: *HR* Heparin 5,000 UNIT/ML VIAL SQ SCH ×2 (05:43→17:33)
--- NOTE | 2017-10-21 06:03 | Pulmonology Progress Note ---
<AlexiaJadon W - Last Filed: 10/21/17 10:13> Date of Encounter: 10/21/17 Objective PUL Vital signs: Last Vital Signs Temp 97.8 F 10/21/17 07:21 Pulse 104 10/21/17 07:21 Resp 19 10/21/17 07:21 BP 176/98 10/21/17 07:21 Pulse Ox 99 10/21/17 07:21 Ventilator Settings Ventilator Settings: Ventilator Settings, Last 8 Hours Ventilator Mode A/C Ventilator Mode A/C Ventilator Mode A/C Ventilator Mode VC+ Ventilator Mode A/C Ventilator Mode A/C Ventilator Mode A/C Ventilator Mode A/C Ventilator Tidal Volume 450 Setting Ventilator Tidal Volume 450 Setting Ventilator Tidal Volume 450 Setting Ventilator Tidal Volume 450 Setting Ventilator Tidal Volume 450 Setting Ventilator Tidal Volume 450 Setting Ventilator Tidal Volume 450 Setting Ventilator Tidal Volume 450 Setting Ventilator Respiratory Rate 12 Setting Ventilator Respiratory Rate 12 Setting Ventilator Respiratory Rate 12 Setting Ventilator Respiratory Rate 12 Setting Ventilator Respiratory Rate 12 Setting Ventilator Respiratory Rate 12 Setting Ventilator Respiratory Rate 12 Setting Ventilator Respiratory Rate 12 Setting Actual Respiratory Rate 12 Actual Respiratory Rate 13 Actual Respiratory Rate 12 Actual Respiratory Rate 13 Actual Respiratory Rate 14 Actual Respiratory Rate 12 Actual Respiratory Rate 12 Positive End Expiratory 5 Pressure Positive End Expiratory 5 Pressure Positive End Expiratory 5 Pressure Positive End Expiratory 5 Pressure Positive End Expiratory 5 Pressure Positive End Expiratory 5 Pressure Positive End Expiratory 5 Pressure Positive End Expiratory 5 Pressure Peak Inspiratory Airway 19 Pressure Peak Inspiratory Airway 19 Pressure Peak Inspiratory Airway 19 Pressure Peak Inspiratory Airway 19 Pressure Peak Inspiratory Airway 18 Pressure Peak Inspiratory Airway 18 Pressure Peak Inspiratory Airway 18 Pressure Results - Laboratory Findings CBC and BMP: 10/21/17 03:40 10/21/17 03:40 ABG ABG pH 7.38 pH Units (7.32-7.45) 10/21/17 04:45 ABG pCO2 33 mmHg (35-45) L 10/21/17 04:45 ABG pO2 113 mmHg (85-104) H 10/21/17 04:45 ABG O2 Saturation 98 % (95-98) 10/21/17 04:45 PT/INR, D-dimer PT 11.4 Seconds (9.4-12.1) 10/18/17 11:34 Abnormal lab findings: Abnormal lab results RBC 3.24 M/mcL (3.82-4.97) L 10/21/17 03:40 Hgb 9.2 g/dL (11.5-15.4) L 10/21/17 03:40 Hct 28.6 % (35.3-44.9) L 10/21/17 03:40 Nucleated RBCs/100 WBC 0.2 /100 WBC (0) H 10/19/17 04:30 ABG pCO2 33 mmHg (35-45) L 10/21/17 04:45 ABG pO2 113 mmHg (85-104) H 10/21/17 04:45 ABG HCO3 20 mEq/L (21-27) L 10/21/17 04:45 ABG Base Excess -5 mEq/L (-2 to 3) L 10/21/17 04:45 Carboxyhemoglobin 5.2 % (0-5) H 10/18/17 11:34 Chloride 112 mEq/L (98-107) H 10/21/17 03:40 Carbon Dioxide 17 mEq/L (23-29) L 10/21/17 03:40 BUN/Creatinine Ratio 27 (6-26) H 10/21/17 03:40 POC Glucose 128 mg/dL (70-99) H 10/21/17 00:25 Calcium 8.1 mg/dL (8.6-10.3) L 10/21/17 03:40 Serum Total Protein 6.0 g/dL (6.4-8.9) L 10/19/17 04:30 Globulin 2.2 g/dL (2.4-3.5) L 10/19/17 04:30 Urine Protein 30 mg/dL (Neg-Trace) H 10/19/17 16:20 Urine Blood Moderate (Negative) H 10/19/17 16:20 Urine Microscopic RBC 15-30 per hpf (0-3) H 10/19/17 16:20 Ur Squamous Epith Cells Moderate per lpf (None-Few) H 10/19/17 16:20 - Clinical Findings Intake & Output: Intake & Output 10/20/17 10/21/17 10/21/17 23:59 07:59 15:59 Intake Total 230 / 230 291 / 291 Output Total 1000 / 1000 250 / 250 Balance -770 / -770 41 / 41 Weight 64.5 kg Consult Discharge Plan - Plan Referrals: Bladimir Dunne MD [Primary Care Provider] - - Attending Attestation I examined this patient and my medical decision-making was reviewed with the Resident Physician. I agree with the documented findings, disposition and treatment plan as described except to the extent set forth below. We independently had [id number] contact with the patient Patient seen and examined at bedside Labs, radiology, chart personally reviewed. Management was reviewed during multidisciplinary critical care rounds. [employer]: More awake today and able to follow simple commands but still delirious. Moves all extremities without deficit. Sitter at bedside. Cont ASA and Statin for Acute CVA Pulm: Extubated today stable oxygentation on nasal cannula which can be weaned Cards: Accelerated HTN now controlled. Advance antihypertensive FEN-GI: NPO for now pending beside speech/swallow eval. Renal: UOP monitored ID: ?[email or web address] PNA on Zosyn plan to stop today cultures remain negative WBC normal. Afebrile. Heme/Onc: DVT prophylaxis given Endo: Glucose Monitored Integ/MSK: Skin Care per routine ICU Nursing Protocol to prevent ulcers. Lines: All lines examined without evidence of infection : Dispo: Remain in ICU today CODE: Full. <Enmanuel Maria - Last Filed: 10/21/17 11:17> Date of Encounter: 10/21/17 Time of Encounter: 09:00 Assessment and Plan (1) Encephalopathy Current Visit: Yes Status: Acute Encephalopathy of unknown origin, likely metabolic Most likely secondary to hypertensive emergency/PRES vs possible infectious etiology No obvious electrolyte disturbance or source of infection, UDS Negative Lumbar puncture was performed with CSF analysis that is grossly normal with cell differential pending Head CT is negative for acute process MRI shows two two tiny foci of acute ischemia within the right temporal lobe EEG shows: "Prominent beta activity in the anterior regions could be secondary to medication effect. NO evidence of any generalized convulsive activity" Neurology has been consulted Plan -Consider infectious source very unlikely, we will DC Zosyn -Suspect that this may be a response to either decreased blood pressure or cessation of medication -Improvement is noted, and patient was successfully extubated -We will continue to monitor neuro status -We will place a sitter in the room to prevent self-harm (2) Hypertensive emergency Current Visit: Yes Status: Acute Hypertensive emergency, SBP >210 on arrival Patient has neurological symptoms including encephalopathy, likely secondary to HTN I spoke with the patient's PCP, Dr. Dunne, who states that the patient has not had history of HTN to his knowledge The patient is on PRN clonidine for anxiety. BP has been normal in previous office visits Patient's does say she abruptly stopped Clonidine several days ago, however he does not know why This may present a source of hypertension, if there is a rebound (3) Endotracheally intubated Current Visit: Yes Status: Resolved Successfully extubated this morning (4) History of hypothyroidism Current Visit: Yes Status: Chronic Hypothyroidism on levothyroxine TSH is stable on this admission We will continue levothyroxine IV at decreased dose Pending bedside swallow, consider transition to PO (5) DVT prophylaxis Current Visit: Yes Status: Acute We will start the patient on subcutaneous heparin Subjective Principal diagnosis: Metabolic Encephalopathy Interval history: The patient is lying in bed at time of examination. She was successfully extubated today without complication. She is alert and responds appropriately to commands. Objective PUL Vital signs: Last Vital Signs Temp 96.8 F L 10/21/17 03:00 Pulse 61 10/21/17 03:00 Resp 12 10/21/17 05:32 BP 168/82 10/21/17 05:32 Pulse Ox 100 10/21/17 05:32 Gen: Vitals noted. No acute distress. Pleasantly confusion HEENT: PERRL/EOMI, oropharynx clear, Normocephalic, atraumatic Neck: Supple. No adenopathy. Cardiac: RRR, no murmur, +S1/S2 Pulmonary: CTA bilaterally, no wheezes, rales or rhonchi, equal chest expansion Abdomen: soft, nontender, BS noted, no guarding MSK: ROM intact, no joint swelling noted Extremities: no BLE edema, nontender calf, no cyanosis or clubbing Neuro: A&O to person only, moves all extremities, no focal deficits. Responds appropriately to command. Initially would not lift legs on command however this is improving. Ventilator Settings Ventilator Settings: Ventilator Settings, Last 8 Hours Ventilator Mode A/C Ventilator Mode VC+ Ventilator Mode A/C Ventilator Mode A/C Ventilator Mode A/C Ventilator Mode A/C Ventilator Mode A/C Ventilator Mode A/C Ventilator Tidal Volume 450 Setting Ventilator Tidal Volume 450 Setting Ventilator Tidal Volume 450 Setting Ventilator Tidal Volume 450 Setting Ventilator Tidal Volume 450 Setting Ventilator Tidal Volume 450 Setting Ventilator Tidal Volume 450 Setting Ventilator Tidal Volume 450 Setting Ventilator Respiratory Rate 12 Setting Ventilator Respiratory Rate 12 Setting Ventilator Respiratory Rate 12 Setting Ventilator Respiratory Rate 12 Setting Ventilator Respiratory Rate 12 Setting Ventilator Respiratory Rate 12 Setting Ventilator Respiratory Rate 12 Setting Ventilator Respiratory Rate 12 Setting Actual Respiratory Rate 13 Actual Respiratory Rate 14 Actual Respiratory Rate 12 Actual Respiratory Rate 12 Actual Respiratory Rate 12 Actual Respiratory Rate 12 Actual Respiratory Rate 12 Positive End Expiratory 5 Pressure Positive End Expiratory 5 Pressure Positive End Expiratory 5 Pressure Positive End Expiratory 5 Pressure Positive End Expiratory 5 Pressure Positive End Expiratory 5 Pressure Positive End Expiratory 5 Pressure Positive End Expiratory 5 Pressure Peak Inspiratory Airway 19 Pressure Peak Inspiratory Airway 18 Pressure Peak Inspiratory Airway 18 Pressure Peak Inspiratory Airway 18 Pressure Peak Inspiratory Airway 17 Pressure Peak Inspiratory Airway 17 Pressure Peak Inspiratory Airway 17 Pressure Results - Laboratory Findings CBC and BMP: 10/21/17 03:40 10/21/17 03:40 ABG ABG pH 7.38 pH Units (7.32-7.45) 10/21/17 04:45 ABG pCO2 33 mmHg (35-45) L 10/21/17 04:45 ABG pO2 113 mmHg (85-104) H 10/21/17 04:45 ABG O2 Saturation 98 % (95-98) 10/21/17 04:45 PT/INR, D-dimer PT 11.4 Seconds (9.4-12.1) 10/18/17 11:34 Abnormal lab findings: Abnormal lab results RBC 3.24 M/mcL (3.82-4.97) L 10/21/17 03:40 Hgb 9.2 g/dL (11.5-15.4) L 10/21/17 03:40 Hct 28.6 % (35.3-44.9) L 10/21/17 03:40 Nucleated RBCs/100 WBC 0.2 /100 WBC (0) H 10/19/17 04:30 ABG pCO2 33 mmHg (35-45) L 10/21/17 04:45 ABG pO2 113 mmHg (85-104) H 10/21/17 04:45 ABG HCO3 20 mEq/L (21-27) L 10/21/17 04:45 ABG Base Excess -5 mEq/L (-2 to 3) L 10/21/17 04:45 Carboxyhemoglobin 5.2 % (0-5) H 10/18/17 11:34 Chloride 112 mEq/L (98-107) H 10/21/17 03:40 Carbon Dioxide 17 mEq/L (23-29) L 10/21/17 03:40 BUN/Creatinine Ratio 27 (6-26) H 10/21/17 03:40 POC Glucose 128 mg/dL (70-99) H 10/21/17 00:25 Calcium 8.1 mg/dL (8.6-10.3) L 10/21/17 03:40 Serum Total Protein 6.0 g/dL (6.4-8.9) L 10/19/17 04:30 Globulin 2.2 g/dL (2.4-3.5) L 10/19/17 04:30 Urine Protein 30 mg/dL (Neg-Trace) H 10/19/17 16:20 Urine Blood Moderate (Negative) H 10/19/17 16:20 Urine Microscopic RBC 15-30 per hpf (0-3) H 10/19/17 16:20 Ur Squamous Epith Cells Moderate per lpf (None-Few) H 10/19/17 16:20 - Clinical Findings Intake & Output: Intake & Output 10/20/17 10/20/17 10/21/17 15:59 23:59 07:59 Intake Total 100 / 100 230 / 230 171 / 171 Output Total 225 / 225 1000 / 1000 150 / 150 Balance -125 / -125 -770 / -770 Weight 64.5 kg
[2017-10-21] MEDS: Piperacillin/Tazobactam 3.375 GM in 0.9 % Sodium Chloride Mini Bag 100 ML IVPB SCH (07:52)
[2017-10-21] MEDS: Aspirin 325 MG TABLET GTUBE SCH (08:45)
[2017-10-21] MEDS ORDERED: hydrALAZINE 10 MG TABLET PO PRN (10:42)
--- NOTE | 2017-10-21 11:43 | Neurology Progress Note ---
Date of Encounter: 10/21/17 Time of Encounter: 07:35 Assessment and Plan (1) Encephalopathy Current Visit: Yes Status: Acute Patient seems to be slowly gradually improving now she is extubated more awake able to follow commands at times no focal motor neurological deficit noted. So far workup showed infarct in the right hemisphere she did have an elevated blood pressure which was likely reason for her lacunar infarct. As far as mental status changes I suspect it was more related to medications side effects perhaps overdose of the withdrawal we do not know exactly as she is on lot of medication including high doses of tricyclics at home Though did she did not have all full blown features of serotonin syndrome but she was intubated and was on sedation CSF was negative for any infectious etiology. EEG was also negative for any status epilepticus Regardless she seems to be improving now I suggest that we should continue to monitor continue monitor her blood pressure keep it stable range Keep her on aspirin as antiplatelet therapy Also need to look into carotid and echocardiogram because of her recent infarct on MRI of the brain I wide any sedated medication if it is possible other treatment is as per ICU team Subjective Principal diagnosis: Metabolic Encephalopathy Interval history: Patient seems to be improving she is extubated this morning more awake. Earlier yesterday she was noted to be more awake and started responding so the transfer was canceled. Now she is able to follow commands at times but other times she is still very restless no focal motor deficit noted Objective - Constitutional Vitals: Temp Pulse Resp BP Pulse Ox 97.8 F 77 21 164/88 96 10/21/17 07:21 10/21/17 10:20 10/21/17 10:20 10/21/17 10:20 10/21/17 10:20 - Neurological Exam Sensorimotor examination: Present: other (Patient is extubated awake arousable able to follow simple commands at times. Pupils are equal and reactive. Moving all 4 extremities a spontaneously as well as to the deep pain to flexes are symmetrical and downgoing toes bilaterally) Cranial nerve examination: Present: PERRL, EOMI Results - Laboratory Findings CBC and BMP: 10/21/17 03:40 10/21/17 03:40 Abnormal lab findings: Abnormal lab results RBC 3.24 M/mcL (3.82-4.97) L 10/21/17 03:40 Hgb 9.2 g/dL (11.5-15.4) L 10/21/17 03:40 Hct 28.6 % (35.3-44.9) L 10/21/17 03:40 Nucleated RBCs/100 WBC 0.2 /100 WBC (0) H 10/19/17 04:30 ABG pCO2 33 mmHg (35-45) L 10/21/17 04:45 ABG pO2 113 mmHg (85-104) H 10/21/17 04:45 ABG HCO3 20 mEq/L (21-27) L 10/21/17 04:45 ABG Base Excess -5 mEq/L (-2 to 3) L 10/21/17 04:45 Carboxyhemoglobin 5.2 % (0-5) H 10/18/17 11:34 Chloride 112 mEq/L (98-107) H 10/21/17 03:40 Carbon Dioxide 17 mEq/L (23-29) L 10/21/17 03:40 BUN/Creatinine Ratio 27 (6-26) H 10/21/17 03:40 POC Glucose 128 mg/dL (70-99) H 10/21/17 00:25 Calcium 8.1 mg/dL (8.6-10.3) L 10/21/17 03:40 Serum Total Protein 6.0 g/dL (6.4-8.9) L 10/19/17 04:30 Globulin 2.2 g/dL (2.4-3.5) L 10/19/17 04:30 Urine Protein 30 mg/dL (Neg-Trace) H 10/19/17 16:20 Urine Blood Moderate (Negative) H 10/19/17 16:20 Urine Microscopic RBC 15-30 per hpf (0-3) H 10/19/17 16:20 Ur Squamous Epith Cells Moderate per lpf (None-Few) H 10/19/17 16:20 Consult Discharge Plan - Plan Referrals: Bladimir Dunne MD [Primary Care Provider] -
[2017-10-21] MEDS: Levothyroxine Sodium 100 MCG VIAL IVP SCH (12:29)
[2017-10-21] MEDS ORDERED: *HR* Labetalol 20 MG/4 ML SYRINGE IVP PRN (14:08)
[2017-10-21] MEDS ORDERED: Haloperidol Lactate 5 MG/ML VIAL IVP ONE (18:22)
[2017-10-21] MEDS: *HR* Metoprolol 5 MG/5 ML VIAL IVP SCH ×2 (19:44→23:56)
[2017-10-21] MEDS: Dexmedetomidine HCl 400 MCG/100 ML MLS IVC SCH (20:10)
[2017-10-22 03:17] LABS: Basophils # 0.1 K/mcL (0.0-0.2); Basophils % 0.7 %; Eosinophils # 0.1 K/mcL (0.0-0.6); Eosinophils % 1.2 %; Hematocrit 33.1 % (35.3-44.9); Hemoglobin 11.2 g/dL (11.5-15.4); Immature Granulocytes % 0.3 % (0-4); Lymphocytes # 1.1 K/mcL (0.6-4.6); Lymphocytes % 14.1 %; Mean Corpuscular HGB Conc 33.8 g/dL (31.6-35.5); Mean Corpuscular Hemoglobin 29.4 pg (28.0-33.3); Mean Corpuscular Volume 86.9 fL (83.0-100.0); Mean Platelet Volume 9.7 fL (9.4-12.4); Monocytes # 0.5 K/mcL (0.0-1.3); Neutrophils # 5.9 K/mcL (1.6-8.9); Platelet Count 329 K/mcL (140-400); Red Blood Count 3.81 M/mcL (3.82-4.97); Red Cell Distribution Width 13.4 % (11.5-14.5); Segmented Neutrophils % 76.7 %
[2017-10-22] MEDS: Dexmedetomidine HCl 400 MCG/100 ML MLS IVC SCH (03:22)
[2017-10-22 03:42] LABS: BUN/Creatinine Ratio 25 (6-26); Blood Urea Nitrogen 13 mg/dL (8-23); Calcium 8.8 mg/dL (8.6-10.3); Carbon Dioxide 16 mEq/L (23-29); Chloride 109 mEq/L (98-107); Glucose 93 mg/dL (70-105); Osmolality,Calculated 286 (280-300); Potassium 3.5 mEq/L (3.5-5.1); Sodium 138 mEq/L (136-145); eGFR For African Americans > 60 (> 60); eGFR For Non-African Americans > 60 (> 60)
[2017-10-22] MEDS: *HR* Heparin 5,000 UNIT/ML VIAL SQ SCH ×2 (05:31→17:39)
[2017-10-22] MEDS: *HR* Metoprolol 5 MG/5 ML VIAL IVP SCH ×3 (05:31→19:57)
[2017-10-22] MEDS ORDERED: Haloperidol Lactate 5 MG/ML VIAL IVP ONE (06:25)
--- NOTE | 2017-10-22 07:02 | Pulmonology Progress Note ---
<Enmanuel Maria - Last Filed: 10/22/17 13:19> Date of Encounter: 10/22/17 Time of Encounter: 08:20 Assessment and Plan (1) Encephalopathy Current Visit: Yes Status: Acute Encephalopathy of unknown origin, likely metabolic Most likely secondary to hypertensive emergency/PRES vs medication side effect vs possible infectious etiology No obvious electrolyte disturbance or source of infection, UDS Negative Lumbar puncture was performed with CSF analysis that is grossly normal with cell differential pending Head CT is negative for acute process MRI shows two two tiny foci of acute ischemia within the right temporal lobe EEG shows: "Prominent beta activity in the anterior regions could be secondary to medication effect. NO evidence of any generalized convulsive activity" Patient continued to have B symptoms today, did not seem significantly improved Repeat MRI does demonstrate new punctate infarct in the right temporal lobe Per Dr. Allen, CTA of the head was ordered which did not demonstrate any significant occlusion or vasculitis Plan -Consider infectious source very unlikely, we DC'd Zosyn -Suspect that this may be a response to either Increased blood pressure or cessation of medication -Check TTE and Carotid Doppler US for possible embolic source -Continue high-intensity statin and aspirin -We will add low-dose Seroquel daily at bedtime to prevent discontinuation syndrome -Continue to closely monitor blood pressure, maintain goal of 140-150 systolic blood pressure -We will continue to monitor neuro status -We will place a sitter in the room to prevent self-harm (2) Hypertensive emergency Current Visit: Yes Status: Acute Hypertensive emergency, SBP >210 on arrival Patient has neurological symptoms including encephalopathy, likely secondary to HTN I spoke with the patient's PCP, Dr. Dunne, who states that the patient has not had history of HTN to his knowledge The patient is on PRN clonidine for anxiety. BP has been normal in previous office visits Patient's does say she abruptly stopped Clonidine several days ago, however he does not know why This may present a source of hypertension, if there is a rebound Plan: -Continue IV Metoprolol Q6h and Hydralazine Q6h -Start PO Amlodipine 5mg today, titrate up -Goal SBP ~140 (3) History of hypothyroidism Current Visit: Yes Status: Chronic Hypothyroidism on levothyroxine TSH is stable on this admission Transition to PO Levothyroxine Must be taken in thickened water (4) Endotracheally intubated Current Visit: Yes Status: Resolved Successfully extubated (5) DVT prophylaxis Current Visit: Yes Status: Acute We will start the patient on subcutaneous heparin Subjective Principal diagnosis: Metabolic Encephalopathy Interval history: The patient is lying in bed at time of examination. She is pleasantly confused, and apparently had significant confusion with restlessness overnight. She has continued to struggle with fine liquids. Objective PUL Vital signs: Last Vital Signs Temp 98.4 F 10/21/17 23:34 Pulse 60 10/22/17 05:40 Resp 14 10/22/17 05:40 BP 146/83 10/22/17 05:40 Pulse Ox 94 10/22/17 05:40 Gen: Vitals noted. No acute distress. Pleasantly confused HEENT: PERRL/EOMI, oropharynx clear, Normocephalic, atraumatic Neck: Supple. No adenopathy. Cardiac: RRR, no murmur, +S1/S2 Pulmonary: CTA bilaterally, no wheezes, rales or rhonchi, equal chest expansion Abdomen: soft, nontender, BS noted, no guarding MSK: ROM intact, no joint swelling noted Extremities: no BLE edema, nontender calf, no cyanosis or clubbing Neuro: A&O to person only, moves all extremities, no focal deficits. Responds appropriately to command. Struggles to attend to stimuli for any extended duration and is easily distracted Results - Laboratory Findings CBC and BMP: 10/22/17 03:10 10/22/17 03:10 ABG ABG pH 7.38 pH Units (7.32-7.45) 10/21/17 04:45 ABG pCO2 33 mmHg (35-45) L 10/21/17 04:45 ABG pO2 113 mmHg (85-104) H 10/21/17 04:45 ABG O2 Saturation 98 % (95-98) 10/21/17 04:45 PT/INR, D-dimer PT 11.4 Seconds (9.4-12.1) 10/18/17 11:34 Abnormal lab findings: Abnormal lab results RBC 3.81 M/mcL (3.82-4.97) L 10/22/17 03:10 Hgb 11.2 g/dL (11.5-15.4) L D 10/22/17 03:10 Hct 33.1 % (35.3-44.9) L 10/22/17 03:10 Nucleated RBCs/100 WBC 0.2 /100 WBC (0) H 10/19/17 04:30 ABG pCO2 33 mmHg (35-45) L 10/21/17 04:45 ABG pO2 113 mmHg (85-104) H 10/21/17 04:45 ABG HCO3 20 mEq/L (21-27) L 10/21/17 04:45 ABG Base Excess -5 mEq/L (-2 to 3) L 10/21/17 04:45 Carboxyhemoglobin 5.2 % (0-5) H 10/18/17 11:34 Chloride 109 mEq/L (98-107) H 10/22/17 03:10 Carbon Dioxide 16 mEq/L (23-29) L 10/22/17 03:10 Creatinine 0.53 mg/dL (0.60-1.20) L 10/22/17 03:10 Serum Total Protein 6.0 g/dL (6.4-8.9) L 10/19/17 04:30 Globulin 2.2 g/dL (2.4-3.5) L 10/19/17 04:30 Urine Protein 30 mg/dL (Neg-Trace) H 10/19/17 16:20 Urine Blood Moderate (Negative) H 10/19/17 16:20 Urine Microscopic RBC 15-30 per hpf (0-3) H 10/19/17 16:20 Ur Squamous Epith Cells Moderate per lpf (None-Few) H 10/19/17 16:20 - Microbiology Findings Microbiology Findings: Microbiology, Last 48 Hours 10/21/17 03:15 Sputum Culture - Preliminary Sputum 10/19/17 14:33 Blood Culture - Preliminary Peripheral Venipuncture No growth. 10/19/17 14:33 Blood Culture - Preliminary Peripheral Venipuncture No growth. - Clinical Findings Intake & Output: Intake & Output 10/21/17 10/21/17 10/22/17 15:59 23:59 07:59 Intake Total 400 / 400 217 / 217 Output Total 1200 / 1200 1850 / 1850 100 / 100 Balance -800 / -800 -1850 / -1850 117 / 117 Weight 62.9 kg Consult Discharge Plan - Plan Referrals: Bladimir Dunne MD [Primary Care Provider] - <Jadon Hale - Last Filed: 10/22/17 13:59> Date of Encounter: 10/22/17 Objective PUL Vital signs: Last Vital Signs Temp 97.9 F 10/22/17 11:47 Pulse 90 10/22/17 12:00 Resp 18 10/22/17 12:00 BP 182/100 10/22/17 12:00 Pulse Ox 98 10/22/17 12:00 Results - Laboratory Findings CBC and BMP: 10/22/17 03:10 10/22/17 03:10 ABG ABG pH 7.38 pH Units (7.32-7.45) 10/21/17 04:45 ABG pCO2 33 mmHg (35-45) L 10/21/17 04:45 ABG pO2 113 mmHg (85-104) H 10/21/17 04:45 ABG O2 Saturation 98 % (95-98) 10/21/17 04:45 PT/INR, D-dimer PT 11.4 Seconds (9.4-12.1) 10/18/17 11:34 Abnormal lab findings: Abnormal lab results RBC 3.81 M/mcL (3.82-4.97) L 10/22/17 03:10 Hgb 11.2 g/dL (11.5-15.4) L D 10/22/17 03:10 Hct 33.1 % (35.3-44.9) L 10/22/17 03:10 Nucleated RBCs/100 WBC 0.2 /100 WBC (0) H 10/19/17 04:30 ABG pCO2 33 mmHg (35-45) L 10/21/17 04:45 ABG pO2 113 mmHg (85-104) H 10/21/17 04:45 ABG HCO3 20 mEq/L (21-27) L 10/21/17 04:45 ABG Base Excess -5 mEq/L (-2 to 3) L 10/21/17 04:45 Carboxyhemoglobin 5.2 % (0-5) H 10/18/17 11:34 Chloride 109 mEq/L (98-107) H 10/22/17 03:10 Carbon Dioxide 16 mEq/L (23-29) L 10/22/17 03:10 Creatinine 0.53 mg/dL (0.60-1.20) L 10/22/17 03:10 Serum Total Protein 6.0 g/dL (6.4-8.9) L 10/19/17 04:30 Globulin 2.2 g/dL (2.4-3.5) L 10/19/17 04:30 Vitamin B12 > 1500 pg/mL (250-1100) H 10/22/17 08:35 Urine Protein 30 mg/dL (Neg-Trace) H 10/19/17 16:20 Urine Blood Moderate (Negative) H 10/19/17 16:20 Urine Microscopic RBC 15-30 per hpf (0-3) H 10/19/17 16:20 Ur Squamous Epith Cells Moderate per lpf (None-Few) H 10/19/17 16:20 - Microbiology Findings Microbiology Findings: Microbiology, Last 48 Hours 10/21/17 03:15 Sputum Culture - Preliminary Sputum 10/19/17 14:33 Blood Culture - Preliminary Peripheral Venipuncture No growth. 10/19/17 14:33 Blood Culture - Preliminary Peripheral Venipuncture No growth. - Clinical Findings Intake & Output: Intake & Output 10/21/17 10/22/17 10/22/17 23:59 07:59 15:59 Intake Total 317 / 317 100 / 100 Output Total 1850 / 1850 225 / 225 225 / 225 Balance -1850 / -1850 92 / 92 -125 / -125 Weight 62.9 kg - Attending Attestation I examined this patient and my medical decision-making was reviewed with the Resident Physician. I agree with the documented findings, disposition and treatment plan as described except to the extent set forth below. We independently had [id number] contact with the patient Patient seen and examined at bedside Labs, radiology, chart personally reviewed. Management was reviewed during multidisciplinary critical care rounds. BAND TACKER: Patient appears more awake and alert today however she still having difficulty with consistently following commands and appears to have some degree of receptive aphasia. Repeat MRI today as requested by neurology shows new punctate temporal infarct. Suspect all findings are related to hypertension but cannot exclude embolic phenomenon we will request CTA of the head and neck along with echocardiogram appreciate neurology evaluation of the patient and consideration of transfer to referral center if necessary. She has a sitter at bedside help reorient the patient as she has consisted he tried to get out of bed etc. in a confusional state Pulm: Stable oxygenation on room air Cards: Blood pressure monitored we will allow for permissive hypertension at present advance antihypertension once taking by mouth over the next 48 hours FEN-GI: Nothing by mouth for now pending final recommendations from speech therapy regarding dietary consistency Renal: Urine output monitored ID: No active issues Heme/Onc: DVT prophylaxis given Endo: Glucose Monitored Integ/MSK: Skin Care per routine ICU Nursing Protocol to prevent ulcers. Lines: All lines examined without evidence of infection : Dispo: Stable for transfer to [facility] telemetry for ongoing care with bedside sitter CODE: Full
[2017-10-22] MEDS: Levothyroxine Sodium 100 MCG VIAL IVP SCH (08:31)
[2017-10-22] MEDS: Aspirin 325 MG TABLET GTUBE SCH (09:03)
[2017-10-22] MEDS ORDERED: *HR* Midazolam HCl 5 MG/5 ML VIAL IVP ONE ×5 (09:06→16:17)
--- NOTE | 2017-10-22 09:31 | Neurology Progress Note ---
Date of Encounter: 10/22/17 Time of Encounter: 07:30 Assessment and Plan (1) Encephalopathy Current Visit: Yes Status: Acute Patient seems to be slowly gradually improving. no focal motor neurological deficit noted. So far workup showed infarct in the right hemisphere she did have an elevated blood pressure which was likely reason for her lacunar infarct. As far as mental status changes I suspect it was more related to medications side effects perhaps overdose of the withdrawal we do not know exactly waht and how much she was taking but she was on quite a few meds for anxiety including tricyclics at home, now she is off Though did she did not have all full blown features of serotonin syndrome but she was intubated and was on sedation CSF was negative for any infectious etiology. EEG was also negative for any status epilepticus suggest that we should continue to monitor continue monitor her blood pressure keep it stable range Keep her on aspirin as antiplatelet therapy Also need to look into carotid and echocardiogram because of her recent infarct on MRI of the brain, to make sure NO emblolic source. also recommend to check for other metabolic reversible abnormalities like VIT B12, and TSH considering overall suggest to repeat MRI of Head to make sure NO other new process specially in her Temporal lobes ?? discuss with ICU team I Subjective Principal diagnosis: Metabolic Encephalopathy Interval history: Patient seems to be improving she is extubated yesterday, noted to be more awake still confused, some times follow commands. still very restless no focal motor deficit noted Objective - Constitutional Vitals: Temp Pulse Resp BP Pulse Ox 97.0 F L 82 15 153/85 98 10/22/17 07:36 10/22/17 08:00 10/22/17 08:00 10/22/17 08:00 10/22/17 07:00 - Neurological Exam Sensorimotor examination: Present: other (Patient is extubated awake arousable able to follow simple commands at times. Pupils are equal and reactive. Moving all 4 extremities a spontaneously as well as to the deep pain to flexes are symmetrical and downgoing toes bilaterally) Cranial nerve examination: Present: PERRL, EOMI Results - Laboratory Findings CBC and BMP: 10/22/17 03:10 10/22/17 03:10 Abnormal lab findings: Abnormal lab results RBC 3.81 M/mcL (3.82-4.97) L 10/22/17 03:10 Hgb 11.2 g/dL (11.5-15.4) L D 10/22/17 03:10 Hct 33.1 % (35.3-44.9) L 10/22/17 03:10 Nucleated RBCs/100 WBC 0.2 /100 WBC (0) H 10/19/17 04:30 ABG pCO2 33 mmHg (35-45) L 10/21/17 04:45 ABG pO2 113 mmHg (85-104) H 10/21/17 04:45 ABG HCO3 20 mEq/L (21-27) L 10/21/17 04:45 ABG Base Excess -5 mEq/L (-2 to 3) L 10/21/17 04:45 Carboxyhemoglobin 5.2 % (0-5) H 10/18/17 11:34 Chloride 109 mEq/L (98-107) H 10/22/17 03:10 Carbon Dioxide 16 mEq/L (23-29) L 10/22/17 03:10 Creatinine 0.53 mg/dL (0.60-1.20) L 10/22/17 03:10 Serum Total Protein 6.0 g/dL (6.4-8.9) L 10/19/17 04:30 Globulin 2.2 g/dL (2.4-3.5) L 10/19/17 04:30 Urine Protein 30 mg/dL (Neg-Trace) H 10/19/17 16:20 Urine Blood Moderate (Negative) H 10/19/17 16:20 Urine Microscopic RBC 15-30 per hpf (0-3) H 10/19/17 16:20 Ur Squamous Epith Cells Moderate per lpf (None-Few) H 10/19/17 16:20 Consult Discharge Plan - Plan Referrals: Bladimir Dunne MD [Primary Care Provider] -
[2017-10-22] MEDS ORDERED: *HR* Metoprolol 5 MG/5 ML VIAL IVP SCH ×2 (10:39→15:00)
[2017-10-22] MEDS: amLODIPine 5 MG TABLET PO SCH ×2 (10:58→11:29)
[2017-10-22] MEDS ORDERED: Isovue-370 500 ML INFUS..BTL IV ONE ×2 (11:59→14:26)
[2017-10-22] MEDS ORDERED: Naloxone 0.4 MG/ML INJ IVP PRN (14:26)
[2017-10-22] MEDS ORDERED: Acetaminophen 325 MG TABLET PO PRN (14:26)
[2017-10-22] MEDS ORDERED: *HR* Dextrose 50 % in Water (Syg) 50 ML SYRINGE IVP PRN (14:26)
[2017-10-22] MEDS ORDERED: Perflutren Lipid Microsphere 1.3 ML in 0.9 % Sodium Chloride 8.7 ML IVP ONE ×2 (16:54→17:00)
[2017-10-22] MEDS: *HR* Labetalol 20 MG/4 ML SYRINGE IVP PRN ×2 (18:12→22:05)
[2017-10-22] MEDS ORDERED: cloNIDine HCl 0.1 MG TABLET PO ONE (18:52)
[2017-10-23] MEDS: niCARdipine 40 MG/200 ML MLS IVC SCH ×2 (00:28→12:37)
[2017-10-23] MEDS: *HR* Metoprolol 5 MG/5 ML VIAL IVP SCH ×2 (04:35→08:10)
[2017-10-23] MEDS: *HR* Heparin 5,000 UNIT/ML VIAL SQ SCH (06:17)
[2017-10-23 06:30] LABS: BUN/Creatinine Ratio 35 (6-26); Blood Urea Nitrogen 22 mg/dL (8-23); Calcium 9.3 mg/dL (8.6-10.3); Carbon Dioxide 14 mEq/L (23-29); Chloride 116 mEq/L (98-107); Glucose 162 mg/dL (70-105); Osmolality,Calculated 299 (280-300); Potassium 3.5 mEq/L (3.5-5.1); Sodium 141 mEq/L (136-145); eGFR For African Americans > 60 (> 60); eGFR For Non-African Americans > 60 (> 60)
[2017-10-23 07:53] LABS: Basophils % 0.5 %; Eosinophils % 0.2 %; Hematocrit 38.7 % (35.3-44.9); Hemoglobin 13.1 g/dL (11.5-15.4); Immature Granulocytes % 1.1 % (0-4); Lymphocytes # 0.4 K/mcL (0.6-4.6); Lymphocytes % 6.5 %; Mean Corpuscular HGB Conc 33.9 g/dL (31.6-35.5); Mean Corpuscular Hemoglobin 28.8 pg (28.0-33.3); Mean Corpuscular Volume 85.1 fL (83.0-100.0); Mean Platelet Volume 10.9 fL (9.4-12.4); Monocytes # 0.4 K/mcL (0.0-1.3); Monocytes % 5.6 %; Neutrophils # 5.7 K/mcL (1.6-8.9); Platelet Count 524 K/mcL (140-400); Red Blood Count 4.55 M/mcL (3.82-4.97); Red Cell Distribution Width 13.9 % (11.5-14.5); Segmented Neutrophils % 86.1 %
[2017-10-23] MEDS ORDERED: Aspirin 325 MG TABLET GTUBE SCH (09:00)
[2017-10-23] MEDS ORDERED: amLODIPine 5 MG TABLET PO SCH (09:00)
[2017-10-23] MEDS ORDERED: Nitroglycerin 0.4 MG TAB.SUBL SL PRN (09:05)
[2017-10-23 13:06] VITALS: BP 138/71
--- NOTE | 2017-10-23 15:50 | Discharge Summary ---
Orders not resulted at time of discharge: Pending orders 10/19/17 14:33 Culture,Blood [BC] Stat Culture,Blood,Additional [BC] Stat 10/21/17 03:15 Sputum Culture [Culture,Sputum with Gram Stain] [RM] Routine 10/22/17 08:35 MMA (VIT B12 STATUS) Routine 10/23/17 08:04 EKG [ECG 12 lead ECG] [ECG] Stat Date of Encounter: 10/23/17 Time of Encounter: 09:30 - Discharge Diagnosis (1) Acute respiratory failure Priority: Primary Status: Acute Qualifiers: Respiratory failure complication: hypoxia Qualified Code(s): J96.01 - Acute respiratory failure with hypoxia (2) Depression Priority: Secondary Status: Chronic Qualifiers: Depression Type: unspecified Qualified Code(s): F32.9 - Major depressive disorder, single episode, unspecified (3) Encephalopathy Priority: Primary Status: Acute (4) Hypertensive emergency Priority: Primary Status: Acute (5) History of hypothyroidism Priority: Secondary Status: Chronic Hospital course: Ms. Garvey is a 77 year old female with history of depression and hypothyroidism, who was brought in by her family for altered mental status. She required endotracheal intubation. Initial CT head did not show acute intracranial abnormality. She was noted to have uncontrolled hypertension, suggestive of hypertensive emergency. She was initially allowed permissive hypertension for possible stroke. Lumbar puncture was done, CSF analysis was not suggestive of bacterial or viral infection. Patient is noted to be on trazodone, paroxetine and Remeron at home. Neurology was consulted. There has been concern for possible withdrawal if patient was noncompliant versus serotonin excess. Chest x-ray showed possible bibasilar pneumonia, she was started on IV Zosyn. Pro-calcitonin remained normal. MRI brain from October 19 showed 2 tiny foci of acute ischemia in the right temporal lobe. Repeat MRI brain from October 22 showed new acute infarct in left temporal lobe, multiple areas of remote microhemorrhages assisting the sequelae of long-standing hypertension. CT angiogram of head showed no major occlusion/ aneurysm/significant stenosis or vasculitis. EEG was completed, which was suboptimal with no clear epileptiform discharges or generalized convulsive activity. Stroke workup was ordered-echocardiogram report is currently pending, carotid Doppler revealed bilateral 60-79% ICA stenosis. Patient has been started on IV metoprolol and hydralazine along with when necessary IV Nicardipine drip. I have seen this patient only today, patient's family is very concerned due to her mental status is not improving. They report that she was better oriented yesterday, however since last night she stopped answering appropriately and is currently noted to be grabbing at invisible things, speaking nonsense and inappropriately. I have discussed the case with ICU attending and decided to transfer patient for higher level of care, to [facility] per family' s preference. Case was discussed with with Neurovascular service, who kindly accepted her transfer. SHe is medically stable for this transfer. Discharge discussed with: family, nurse - Time Spent with Patient Total time spent providing and/or coordinating discharge services: Greater than 30 minutes (45 min) - Discharge Medications Home Medications: Baclofen [Lioresal] 10 mg PO TID 10/18/17 [History] Estrogens, Conjugated [Premarin Cream] 1 appl VG MO 10/18/17 [History] Ibuprofen 800 mg PO BID PRN 10/18/17 [History] Levothyroxine Sodium [Levoxyl] 75 mcg PO DAILY 10/18/17 [History] Mirtazapine [Remeron] 15 mg PO HS 10/18/17 [History] Olopatadine HCl [Pataday] 1 drop BOTH EYES BID 10/18/17 [History] Omeprazole [PriLOSEC] 40 mg PO DAILY 10/18/17 [History] PARoxetine HCl [Paroxetine HCl] 10 mg PO DAILY 10/18/17 [History] Pravastatin Sodium [Pravachol] 20 mg PO QPM 10/18/17 [History] Trazodone HCl 100 mg PO HS 10/18/17 [History] cloNIDine HCl [CloNIDine HCl] 0.1 mg PO DAILY 10/18/17 [History] Acetaminophen [Tylenol] 500 mg PO Q6HR 10/20/17 [History] Cholecalciferol (Vitamin D3) [Vitamin D] 1,000 unit PO 1-2XD 10/20/17 [History] Allergies/Adverse Reactions: 3 Allergy/AdvReac Type Severity Reaction Status Date / Time No Known Allergies Allergy Verified 09/13/16 06:19 Date of admission: 10/18/17 13:30 Primary care physician: Bladimir Dunne MD Consults: 10/18/17 15:12 Consult to Neurology [CONS] Routine Consulting Provider: Neurology [facility] Reason for Consult: Metabolic encephalopathy Time Notified: 15:13 Call Completed: Yes 10/21/17 18:39 Consult to Speech Therapy [CONS] Routine Comment: Evaluate, develop and implement POC Reason for Consult: dysphagia Call Completed: No Discharging clinician: Ava Ellsworth Anticipated date of discharge: 10/23/17 - Constitutional Vitals: Temp Pulse Resp BP Pulse Ox 98.0 F 118 16 138/71 97 10/23/17 10:01 10/23/17 13:00 10/23/17 13:00 10/23/17 13:00 10/23/17 13:00 General appearance: Present: A&O X 1 (speaks inappropriately). Absent: answers questions appropriately - Cardiovascular Cardiovascular exam: Present: RRR, +S1, +S2, tachycardia. Absent: diastolic murmur, gallop, rubs, systolic murmur - Patient Status Disposition: Transfer Other Condition: Fair Functional capacity at discharge: bed bound Overall status at discharge: patient is not back to baseline - Discharge Instructions Follow Up With: Bladimir Dunne MD [Primary Care Provider] - - Stroke Contraindication Rehab Services Not Assessed: Refused by Patient / Family
--- NOTE | 2017-10-26 05:40 | Electrocardiograph Report ---
[address] [address] Test Date: 2017-10-23 Pat Name: Margot Garvey Department: 110 Room: [facility] Gender: F Sap Bi Architect: USHA : 1940 Requested By: Sera Ellsworth Order Number: [id number] Reading MD: Sergio Whitehead Measurements Intervals [place] Rate: 106 P: 75 CA: 176 QRS: 0 QRSD: 74 T: 62 QT: 343 QTc: 405 Interpretive Statements SINUS TACHYCARDIA NONSPECIFIC T-WAVE ABNORMALITY ABNORMAL RHYTHM ECG Electronically Signed On 10-26-2017 5:39:11 EDT by Sergio Whitehead
== END 2017-10-23 14:40 | disposition other institution (70) | DRG 91 ==
LOC: EMEROO 10:03 → ICNU 13:30 → SUATTDRO 13:30 → ICNU 14:47 → 2NNU 10-23 03:50
PROVIDERS: ADMIT Internal Medicine Hospice and Palliative Medicine; ATTEND Internal Medicine

== ENCOUNTER 2021-10-10 13:30 | Inpatient (IN) ==
[2021-10-10] MEDS ORDERED: *HR* FentaNYL (PF) 100 MCG/2 ML VIAL IVP STA (14:58)
[2021-10-10] MEDS ORDERED: Ondansetron 4 MG/2 ML VIAL IVP ONE (14:58)
[2021-10-10 15:06] LABS: Hemoglobin 11.6 g/dL (11.5-15.4); Mean Corpuscular HGB Conc 31.4 g/dL (31.6-35.5); Mean Corpuscular Hemoglobin 27.4 pg (28.0-33.3); Mean Corpuscular Volume 87.5 fL (83.0-100.0); Mean Platelet Volume 9.7 fL (9.4-12.4); Platelet Count 384 K/mcL (140-400); Red Blood Count 4.23 M/mcL (3.82-4.97); Red Cell Distribution Width 14.7 % (11.5-14.5); White Blood Count 12.5 K/mcL (4.3-11.1)
[2021-10-10 15:29] LABS: BUN/Creatinine Ratio 16 (6-26); Blood Urea Nitrogen 13 mg/dL (8-23); Calcium 9.4 mg/dL (8.6-10.3); Carbon Dioxide 25 mEq/L (23-29); Chloride 102 mEq/L (98-107); Glucose 148 mg/dL (70-105); Osmolality,Calculated 291 (280-300); Sodium 139 mEq/L (136-145); eGFR For African Americans > 60 (> 60); eGFR For Non-African Americans > 60 (> 60)
[2021-10-10] MEDS ORDERED: Naloxone 0.4 MG/ML INJ IVP PRN (15:44)
[2021-10-10] MEDS: cloNIDine HCL 0.1 MG TABLET PO SCH (20:32)
[2021-10-10] MEDS: Gabapentin 300 MG CAPSULE PO SCH (20:32)
[2021-10-10] MEDS: traZODone 50 MG TABLET PO SCH (20:32)
[2021-10-10] MEDS: Baclofen 10 MG TABLET PO SCH (20:32)
[2021-10-10] MEDS: Fluticasone Propionate Nasal 50 MCG/SPRAY BOTTLE NS SCH (20:32)
[2021-10-11] MEDS: *HR* Enoxaparin 40 MG/0.4 ML SYRINGE SQ SCH (05:36)
[2021-10-11 05:40] LABS: Basophils # 0.1 K/mcL (0.0-0.2); Basophils % 0.7 %; Eosinophils % 0.1 %; Hematocrit 32.4 % (35.3-44.9); Hemoglobin 10.1 g/dL (11.5-15.4); Immature Granulocytes % 0.3 % (0-4); Lymphocytes # 1.6 K/mcL (0.6-4.6); Lymphocytes % 18.2 %; Mean Corpuscular HGB Conc 31.2 g/dL (31.6-35.5); Mean Corpuscular Hemoglobin 26.8 pg (28.0-33.3); Mean Corpuscular Volume 85.9 fL (83.0-100.0); Mean Platelet Volume 9.5 fL (9.4-12.4); Monocytes # 0.7 K/mcL (0.0-1.3); Neutrophils # 6.5 K/mcL (1.6-8.9); Platelet Count 355 K/mcL (140-400); Red Blood Count 3.77 M/mcL (3.82-4.97); Red Cell Distribution Width 14.8 % (11.5-14.5); Segmented Neutrophils % 72.7 %
[2021-10-11 06:00] LABS: BUN/Creatinine Ratio 16 (6-26); Blood Urea Nitrogen 15 mg/dL (8-23); Calcium 8.9 mg/dL (8.6-10.3); Carbon Dioxide 28 mEq/L (23-29); Chloride 101 mEq/L (98-107); Glucose 129 mg/dL (70-105); Osmolality,Calculated 287 (280-300); Potassium 4.1 mEq/L (3.5-5.1); Sodium 137 mEq/L (136-145); eGFR For African Americans > 60 (> 60); eGFR For Non-African Americans 56 (> 60)
[2021-10-11] MEDS: Aspirin Enteric Coated 81 MG Tablet PO SCH (09:29)
[2021-10-11] MEDS: Gabapentin 300 MG CAPSULE PO SCH ×3 (09:30→21:19)
[2021-10-11] MEDS: Baclofen 10 MG TABLET PO SCH ×3 (09:30→21:19)
[2021-10-11] MEDS: cloNIDine HCL 0.1 MG TABLET PO SCH ×2 (09:30→21:19)
[2021-10-11] MEDS: Ipratropium Bromide 15 ML Spray NS SCH (09:31)
[2021-10-11] MEDS: Fluticasone Propionate Nasal 50 MCG/SPRAY BOTTLE NS SCH ×2 (09:31→21:22)
[2021-10-11] MEDS: PARoxetine 10 MG TABLET PO SCH (09:38)
[2021-10-11] MEDS ORDERED: Povidone-Iodine 45 ML, Sodium Chloride IRRigation 1,000 ML IR ONE (13:05)
[2021-10-11] MEDS ORDERED: TOTAL JOINT MIXTURE (100ML) INTRAART ONE (13:05)
[2021-10-11] MEDS ORDERED: *HR* FentaNYL (PF) 100 MCG/2 ML VIAL ONE (15:38)
[2021-10-11] MEDS ORDERED: *HR* Propofol 200 MG/20 ML VIAL IVP ONE (15:38)
[2021-10-11] MEDS ORDERED: Ondansetron 4 MG/2 ML VIAL ONE (15:39)
[2021-10-11] MEDS ORDERED: Lidocaine -MPF 2% 2 ML VIAL ONE (15:39)
[2021-10-11] MEDS ORDERED: Ringers Solution, Lactated 1,000 ML IVC SCH (17:15)
[2021-10-11] MEDS ORDERED: *HR* FentaNYL (PF) 100 MCG/2 ML VIAL IVP PRN (17:18)
[2021-10-11] MEDS ORDERED: Ondansetron 4 MG/2 ML VIAL IVP PRN (17:18)
[2021-10-11] MEDS ORDERED: Acetaminophen IV 1,000 MG/100 ML BAG IVPB ONE (17:31)
[2021-10-11] MEDS ORDERED: Tranexamic Acid 1,000 MG/10 ML VIAL ONE (17:32)
[2021-10-11] MEDS: traZODone 50 MG TABLET PO SCH (21:19)
[2021-10-11] MEDS: CeFAZolin 2 GM/100 ML BAG IVPB SCH (23:39)
[2021-10-12] MEDS: *HR* Enoxaparin 40 MG/0.4 ML SYRINGE SQ SCH (06:06)
[2021-10-12 07:26] LABS: Basophils % 0.1 %; Hematocrit 27.1 % (35.3-44.9); Hemoglobin 8.6 g/dL (11.5-15.4); Immature Granulocytes % 0.4 % (0-4); Lymphocytes # 1.1 K/mcL (0.6-4.6); Lymphocytes % 8.8 %; Mean Corpuscular HGB Conc 31.7 g/dL (31.6-35.5); Mean Corpuscular Hemoglobin 27.8 pg (28.0-33.3); Mean Corpuscular Volume 87.7 fL (83.0-100.0); Mean Platelet Volume 9.7 fL (9.4-12.4); Monocytes # 0.9 K/mcL (0.0-1.3); Monocytes % 7.8 %; Platelet Count 305 K/mcL (140-400); Red Blood Count 3.09 M/mcL (3.82-4.97); Red Cell Distribution Width 14.6 % (11.5-14.5); Segmented Neutrophils % 82.9 %
[2021-10-12 08:36] LABS: BUN/Creatinine Ratio 25 (6-26); Blood Urea Nitrogen 24 mg/dL (8-23); Calcium 8.3 mg/dL (8.6-10.3); Carbon Dioxide 27 mEq/L (23-29); Chloride 103 mEq/L (98-107); Glucose 121 mg/dL (70-105); Magnesium 1.9 mg/dL (1.6-2.6); Osmolality,Calculated 291 (280-300); Potassium 4.1 mEq/L (3.5-5.1); Sodium 138 mEq/L (136-145); eGFR For African Americans > 60 (> 60); eGFR For Non-African Americans 56 (> 60)
[2021-10-12] MEDS: CeFAZolin 2 GM/100 ML BAG IVPB SCH ×3 (08:52→23:26)
[2021-10-12] MEDS: PARoxetine 10 MG TABLET PO SCH (08:57)
[2021-10-12] MEDS: Aspirin Enteric Coated 81 MG Tablet PO SCH (08:58)
[2021-10-12] MEDS: Gabapentin 300 MG CAPSULE PO SCH ×3 (08:58→20:47)
[2021-10-12] MEDS: cloNIDine HCL 0.1 MG TABLET PO SCH ×2 (08:58→20:47)
[2021-10-12] MEDS: Baclofen 10 MG TABLET PO SCH ×3 (08:58→20:47)
[2021-10-12] MEDS: Ipratropium Bromide 15 ML Spray NS SCH (09:01)
[2021-10-12] MEDS: Fluticasone Propionate Nasal 50 MCG/SPRAY BOTTLE NS SCH ×2 (09:01→20:49)
[2021-10-12 18:36] LABS: Bilirubin,Urine Negative (Negative); Blood,Urine Trace (Negative); Clarity,Urine Clear (Clear); Color,Urine Yellow (Yellow); Glucose,Urine (UA) Normal (Normal); Hyaline Casts,Urine Few per lpf (None Seen); Ketones,Urine Trace mg/dL (Negative); Leukocyte Esterase,Urine Large (Negative); Nitrite,Urine Negative (Negative); Protein,Urine 30 mg/dL (Neg-Trace); Specific Gravity,Urine > 1.030 (1.010-1.025); Squamous Epithelial Cell,Urine Few per hpf (None-Few); Urobilinogen,Urine Normal (Normal); WBC,Urine 50-100 per hpf (0-3)
[2021-10-12] MEDS: traZODone 50 MG TABLET PO SCH (20:47)
[2021-10-13 05:09] LABS: Basophils % 0.4 %; Eosinophils % 0.3 %; Hematocrit 26.8 % (35.3-44.9); Hemoglobin 8.1 g/dL (11.5-15.4); Immature Granulocytes % 0.4 % (0-4); Lymphocytes # 1.5 K/mcL (0.6-4.6); Lymphocytes % 16.7 %; Mean Corpuscular HGB Conc 30.2 g/dL (31.6-35.5); Mean Corpuscular Hemoglobin 27.4 pg (28.0-33.3); Mean Corpuscular Volume 90.5 fL (83.0-100.0); Mean Platelet Volume 9.9 fL (9.4-12.4); Monocytes # 0.8 K/mcL (0.0-1.3); Monocytes % 8.6 %; Neutrophils # 6.6 K/mcL (1.6-8.9); Platelet Count 305 K/mcL (140-400); Red Blood Count 2.96 M/mcL (3.82-4.97); Red Cell Distribution Width 14.7 % (11.5-14.5); Segmented Neutrophils % 73.6 %
[2021-10-13 05:25] LABS: BUN/Creatinine Ratio 30 (6-26); Blood Urea Nitrogen 28 mg/dL (8-23); Carbon Dioxide 26 mEq/L (23-29); Chloride 107 mEq/L (98-107); Glucose 123 mg/dL (70-105); Magnesium 1.9 mg/dL (1.6-2.6); Osmolality,Calculated 297 (280-300); Potassium 4.1 mEq/L (3.5-5.1); Sodium 140 mEq/L (136-145); eGFR For African Americans > 60 (> 60); eGFR For Non-African Americans 58 (> 60)
[2021-10-13] MEDS: *HR* Enoxaparin 40 MG/0.4 ML SYRINGE SQ SCH (05:57)
[2021-10-13] MEDS: cloNIDine HCL 0.1 MG TABLET PO SCH ×2 (08:27→20:28)
[2021-10-13] MEDS: Baclofen 10 MG TABLET PO SCH ×3 (08:27→20:28)
[2021-10-13] MEDS: Cholecalciferol (D-3) 1,000 UNIT (25MCG) TABLET PO SCH (08:28)
[2021-10-13] MEDS: Aspirin Enteric Coated 81 MG Tablet PO SCH (08:29)
[2021-10-13] MEDS: CeFAZolin 2 GM/100 ML BAG IVPB SCH ×3 (08:29→23:38)
[2021-10-13] MEDS: Gabapentin 300 MG CAPSULE PO SCH ×3 (08:29→20:28)
[2021-10-13] MEDS: PARoxetine 10 MG TABLET PO SCH (08:29)
[2021-10-13] MEDS: Fluticasone Propionate Nasal 50 MCG/SPRAY BOTTLE NS SCH ×2 (08:30→20:29)
[2021-10-13] MEDS: Ipratropium Bromide 15 ML Spray NS SCH (08:31)
[2021-10-13] MEDS: traZODone 50 MG TABLET PO SCH (20:28)
[2021-10-14 04:41] LABS: Basophils # 0.1 K/mcL (0.0-0.2); Basophils % 0.8 %; Eosinophils # 0.1 K/mcL (0.0-0.6); Eosinophils % 0.6 %; Hematocrit 27.1 % (35.3-44.9); Hemoglobin 8.3 g/dL (11.5-15.4); Immature Granulocytes % 0.3 % (0-4); Lymphocytes # 1.8 K/mcL (0.6-4.6); Lymphocytes % 21.1 %; Mean Corpuscular HGB Conc 30.6 g/dL (31.6-35.5); Mean Corpuscular Hemoglobin 27.2 pg (28.0-33.3); Mean Corpuscular Volume 88.9 fL (83.0-100.0); Monocytes # 0.8 K/mcL (0.0-1.3); Monocytes % 8.8 %; Neutrophils # 5.9 K/mcL (1.6-8.9); Platelet Count 340 K/mcL (140-400); Red Blood Count 3.05 M/mcL (3.82-4.97); Red Cell Distribution Width 14.6 % (11.5-14.5); Segmented Neutrophils % 68.4 %; White Blood Count 8.7 K/mcL (4.3-11.1)
[2021-10-14 04:48] LABS: BUN/Creatinine Ratio 26 (6-26); Blood Urea Nitrogen 21 mg/dL (8-23); Calcium 8.2 mg/dL (8.6-10.3); Carbon Dioxide 26 mEq/L (23-29); Chloride 106 mEq/L (98-107); Glucose 129 mg/dL (70-105); Magnesium 1.8 mg/dL (1.6-2.6); Osmolality,Calculated 295 (280-300); Potassium 3.7 mEq/L (3.5-5.1); Sodium 140 mEq/L (136-145); eGFR For African Americans > 60 (> 60); eGFR For Non-African Americans > 60 (> 60)
[2021-10-14] MEDS: *HR* Enoxaparin 40 MG/0.4 ML SYRINGE SQ SCH (05:40)
[2021-10-14] MEDS: Baclofen 10 MG TABLET PO SCH ×3 (08:42→21:37)
[2021-10-14] MEDS: Gabapentin 300 MG CAPSULE PO SCH ×3 (08:42→21:37)
[2021-10-14] MEDS: Aspirin Enteric Coated 81 MG Tablet PO SCH (08:42)
[2021-10-14] MEDS: Fluticasone Propionate Nasal 50 MCG/SPRAY BOTTLE NS SCH ×2 (08:42→21:37)
[2021-10-14] MEDS: cloNIDine HCL 0.1 MG TABLET PO SCH ×2 (08:42→21:37)
[2021-10-14] MEDS: PARoxetine 10 MG TABLET PO SCH (08:42)
[2021-10-14] MEDS: Cholecalciferol (D-3) 1,000 UNIT (25MCG) TABLET PO SCH (08:42)
[2021-10-14] MEDS: CeFAZolin 2 GM/100 ML BAG IVPB SCH ×3 (08:43→23:59)
[2021-10-14] MEDS: Ipratropium Bromide 15 ML Spray NS SCH (09:53)
[2021-10-14] MEDS: traZODone 50 MG TABLET PO SCH (21:37)
[2021-10-15] MEDS: *HR* Enoxaparin 40 MG/0.4 ML SYRINGE SQ SCH (05:45)
[2021-10-15 07:41] LABS: Basophils # 0.1 K/mcL (0.0-0.2); Basophils % 0.7 %; Eosinophils # 0.1 K/mcL (0.0-0.6); Hematocrit 27.6 % (35.3-44.9); Hemoglobin 8.5 g/dL (11.5-15.4); Immature Granulocytes % 0.5 % (0-4); Lymphocytes # 1.5 K/mcL (0.6-4.6); Lymphocytes % 16.6 %; Mean Corpuscular HGB Conc 30.8 g/dL (31.6-35.5); Mean Corpuscular Hemoglobin 27.1 pg (28.0-33.3); Mean Corpuscular Volume 87.9 fL (83.0-100.0); Monocytes # 0.7 K/mcL (0.0-1.3); Monocytes % 7.6 %; Neutrophils # 6.4 K/mcL (1.6-8.9); Nucleated Red Blood Cells 0.2 /100 WBC (0); Platelet Count 397 K/mcL (140-400); Red Blood Count 3.14 M/mcL (3.82-4.97); Red Cell Distribution Width 14.6 % (11.5-14.5); Segmented Neutrophils % 73.6 %; White Blood Count 8.7 K/mcL (4.3-11.1)
[2021-10-15 08:02] LABS: BUN/Creatinine Ratio 30 (6-26); Blood Urea Nitrogen 18 mg/dL (8-23); Calcium 8.5 mg/dL (8.6-10.3); Carbon Dioxide 25 mEq/L (23-29); Chloride 107 mEq/L (98-107); Glucose 118 mg/dL (70-105); Magnesium 1.9 mg/dL (1.6-2.6); Osmolality,Calculated 293 (280-300); Potassium 3.6 mEq/L (3.5-5.1); Sodium 140 mEq/L (136-145); eGFR For African Americans > 60 (> 60); eGFR For Non-African Americans > 60 (> 60)
[2021-10-15] MEDS: CeFAZolin 2 GM/100 ML BAG IVPB SCH (09:05)
[2021-10-15] MEDS: Aspirin Enteric Coated 81 MG Tablet PO SCH (09:06)
[2021-10-15] MEDS: Cholecalciferol (D-3) 1,000 UNIT (25MCG) TABLET PO SCH (09:07)
[2021-10-15] MEDS: Baclofen 10 MG TABLET PO SCH (09:07)
[2021-10-15] MEDS: cloNIDine HCL 0.1 MG TABLET PO SCH (09:07)
[2021-10-15] MEDS: Gabapentin 300 MG CAPSULE PO SCH (09:07)
[2021-10-15] MEDS: Fluticasone Propionate Nasal 50 MCG/SPRAY BOTTLE NS SCH (09:09)
[2021-10-15] MEDS: Ipratropium Bromide 15 ML Spray NS SCH (09:09)
[2021-10-15] MEDS: PARoxetine 10 MG TABLET PO SCH (09:18)
[2021-10-15 11:33] VITALS: BP 157/76; PULSE 82; TEMP 98; O2SAT 93
== END 2021-10-15 14:36 | DRG 481 ==
LOC: EMEROOARM 13:30 → 4WAOSI 13:30 → SUATTDRO 18:53
PROVIDERS: ADMIT Internal Medicine; ATTEND Internal Medicine